=== PATIENT | female | born 1990 | race Caucasian/White ===

== ENCOUNTER 2019-07-11 22:08 | Emergency (ER) | payer OTHER ==
[2019-07-11 22:21] VITALS: BP 109/73
--- NOTE | 2019-07-11 23:09 | ED Physician Documentation ---
History of Present Illness - Stated complaint Stated Complaint: RIGHT HAND FINGER LAC - Chief complaint Chief Complaint: Laceration - Additonal information Additional information: This is a 29-year-old female with a laceration to her right hand index finger. Patient was washing a knife, and accidentally cut her finger. She had some bleeding from the area which was controlled with direct pressure. She denies any numbness or weakness in the finger. 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 HEENT: Tonsil/Adenoidectomy - Present Medications Home Medications: Ambulatory Orders Medication Instructions Recorded Confirmed Citalopram [CeleXA] 10 mg PO DAILY 07/11/19 07/11/19 - Allergies Allergies/Adverse Reactions: Allergies Allergy/AdvReac Type Severity Reaction Status Date / Time No Known Drug Allergies Allergy Verified 07/11/19 22:21 - Social History Does the pt smoke?: No Smoking Status: Never smoker Does the pt drink ETOH?: Yes Does the pt have substance abuse?: No - Immunizations Immunizations are current?: Yes PD ED PE NORMAL - Vitals Vital signs reviewed: Yes - General General: Alert and oriented X 3, No acute distress - Respiratory Respiratory: No respiratory distress - Derm Derm: Warm and dry - Extremities Extremities: Other (Right index finger has a slightly curved 1.5 cm laceration on the lateral aspect. This extends to the subcutaneous tissue, there is no bone or tendon visible. She has intact flexion of her DIP as well as her PIP. Her extension is also normal. Sensation is intact to light touch over the di stal finger, capillary refill is brisk. There is no significant tenderness, no other lacerations seen.) - Neuro Neuro: Alert and oriented X 3 - Psych Psych: Normal mood, Normal affect Results - Vitals Vitals: Vital Signs - 24 hr 07/11/19 22:19 Temperature 36.6 C Heart Rate 57 L Respiratory 18 Rate Blood Pressure 109/73 O2 Saturation 97 Oxygen O2 Source Room air Procedures - Laceration (location) Finger right Length in cm: 1.5 Wound type: Linear Neurovascular status: Sensory intact, Motor intact, Vascular intact Tendon involvement: Tendon intact Wound Preparation: Irrigated copiously NS Skin layer closure: Dermabond, Steri strips Other: Patient tolerated well, No complications, Tetanus UTD Complexity: Simple PD MEDICAL DECISION MAKING - ED course ED course: Patient presents with a laceration, she is neurovascularly intact with no signs of tendon injury. The laceration appears clean, and was copiously irrigated with normal saline. She is up-to-date with her tetanus. After careful exploration and cleaning, the wound was repaired with Steri-Strip and Dermabond as noted above, the functional and cosmetic result was excellent. Wound care and return precautions were discussed with the patient, and she was discharged home. Departure - Departure Disposition: 01 Home, Self Care Clinical Impression: Laceration Condition: Good Instructions: ED Laceration Ext Skin Glue Follow-Up: KRISTEL RENTERIA [Primary Care Provider] - As Needed Comments: You were seen today for cut on your finger. This has been repaired with skin glue and a Steri-Strip. It is okay to shower and wash your hands, but avoid soaking the hand or scrubbing at the wound. The glue and Steri-Strip should flake off on their own over the next 1 to 2 weeks. If you develop signs of infection such as redness streaking up your hand, your finger becoming very swollen, or fever, please return to the emergency department. Otherwise you may follow-up with your primary care provider as needed.
== END 2019-07-11 23:27 | disposition home or self-care (01) ==
LOC: ED 22:08
DX: S61.210A Laceration without foreign body of right index finger without damage to nail, initial encounter (principal); W26.0XXA Contact with knife, initial encounter; Y93.G1 Activity, food preparation and clean up; Y92.009 Unspecified place in unspecified non-institutional (private) residence as the place of occurrence of the external cause
CPT/HCPCS: 12001; 99281

== ENCOUNTER 2020-08-11 20:14 | Emergency (ER) | payer OTHER ==
[2020-08-11 20:31] LABS: BILIRUBIN,URINE NEGATIVE (NEGATIVE); GLUCOSE, URINE (UA) NEGATIVE (NEGATIVE); KETONES,URINE (UA) NEGATIVE (NEGATIVE); LEUKOCYTE ESTERASE, URINE NEGATIVE (NEGATIVE); NITRITE,URINE NEGATIVE (NEGATIVE); OCCULT BLOOD,URINE NEGATIVE (NEGATIVE); PROTEIN,URINE NEGATIVE (NEGATIVE); UROBILINOGEN,URINE 0.2 (NORMAL) E.U./dL (NORMAL)
[2020-08-11 20:37] LABS: BACTERIA,URINE Rare /HPF (None Seen); CLARITY,URINE HAZY (CLEAR); HCG UR QUAL NEGATIVE; RBC,URINE 0-5 /HPF (0-5); SQUAMOUS EPITHELIAL CELL,UR MANY Squamous (<= Few)
[2020-08-11 20:38] LABS: AMORPHOUS SEDIMENT,UR Few /LPF
[2020-08-11] MEDS ORDERED: HYDROmorphone 1 MG/ML CARPUJECT IVP STA ×2 (20:47→21:56)
[2020-08-11] MEDS ORDERED: KETOROLAC 30 MG/ML VIAL IVP STA (20:47)
[2020-08-11 20:48] LABS: BASOPHILS % (AUTO) 0.3 %; EOSINOPHILS # (AUTO) 0.1 10^3/uL (0.0-0.7); EOSINOPHILS % (AUTO) 0.8 %; HGB - HEMOGLOBIN 12.3 g/dL (12.0-16.0); LYMPHOCYTES # (AUTO) 3.5 10^3/uL (1.5-3.5); LYMPHOCYTES % (AUTO) 44.2 %; MEAN CORPUSCULAR HEMOGLOBIN 29.6 pg (27.0-31.0); MEAN CORPUSCULAR HGB CONC 33.2 g/dL (32.0-36.0); MEAN CORPUSCULAR VOLUME 88.9 fL (81.0-99.0); MEAN PLATELET VOLUME 9.2 fL (7.9-10.8); MONOCYTES # (AUTO) 0.4 10^3/uL (0.0-1.0); MONOCYTES % (AUTO) 4.6 %; NEUTROPHILS % (AUTO) 49.8 %; PLT - PLATELET COUNT 213 10^3/uL (130-450); RED BLOOD COUNT 4.16 10^6/uL (4.20-5.40); RED CELL DISTRIBUTION WIDTH 11.8 % (12.0-15.0)
[2020-08-11 21:03] LABS: ALBUMIN 4.8 g/dL (3.2-5.5); ALBUMIN/GLOBULIN RATIO 1.7 (1.0-2.2); BILIRUBIN,TOTAL 0.7 mg/dL (0.2-1.0); CALCIUM 9.8 mg/dL (8.5-10.3); CREATININE 0.8 mg/dL (0.4-1.0); TOTAL PROTEIN 7.6 g/dL (6.7-8.2)
[2020-08-11] MEDS ORDERED: ONDANSETRON 4 MG/2 ML VIAL IVP STA ×2 (21:57→23:15)
[2020-08-11] MEDS ORDERED: IOVERSOL 320 100 ML VIAL IVP ONE ×2 (22:20→22:45)
--- NOTE | 2020-08-11 22:26 | ED Physician Documentation ---
PD HPI FEMALE - Stated complaint Stated Complaint: FEMALE , NAUSEA, HEADACHE - Chief complaint Chief Complaint: Abd Pain - History obtained from History obtained from: Patient - History of Present Illness Timing - onset: Last night Timing - duration: Days (1) Timing - details: Abrupt onset, Still present Associated symptoms: Pelvic pain. No: Vaginal bleeding, Vaginal discharge, Genital sore/lesion Contributing factors: control. 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 She has a prior history of ovarian cysts. She has developed nausea but she has not vomited. Review of Systems Constitutional: denies: Fever Eyes: denies: Decreased vision Ears: denies: Ear pain Nose: denies: Rhinorrhea / runny nose, Congestion Throat: denies: Sore throat Cardiac: denies: Chest pain / pressure, Palpitations Respiratory: denies: Dyspnea, Cough GI: reports: Abdominal Pain, Nausea. 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 HEENT: Tonsil/Adenoidectomy - Present Medications Home Medications: Ambulatory Orders Medication Instructions Recorded Confirmed Citalopram [CeleXA] 10 mg PO DAILY 07/11/19 07/11/19 Ondansetron Odt [Zofran] 4 mg TL Q6H PRN #10 tablet 08/12/20 - Allergies Allergies/Adverse Reactions: Allergies Allergy/AdvReac Type Severity Reaction Status Date / Time No Known Drug Allergies Allergy Verified 08/11/20 20:20 - Social History Does the pt smoke?: No Smoking Status: Never smoker Does the pt drink ETOH?: Yes Does the pt have substance abuse?: No - Immunizations Immunizations are current?: Yes PD ED PE NORMAL - Vitals Vital signs reviewed: Yes (normal ) - General General: Alert and oriented X 3, No acute distress, Well developed/nourished - HEENT HEENT: Atraumatic, PERRL, EOMI - Neck Neck: Supple, no meningeal sign, No bony TTP - Cardiac Cardiac: RRR, No murmur - Respiratory Respiratory: No respiratory distress, Clear bilaterally - Abdomen Abdomen: Normal bowel sounds, Soft, Non distended, No organomegaly, Other (LLQ tenderness without garding is mild but reproduces the symptoms the patient is having. ) - Back Back: No CVA TTP, No spinal TTP - Derm Derm: Normal color, Warm and dry, No rash - Extremities Extremities: No deformity, No edema - Neuro Neuro: Alert and oriented X 3, radio program director 2-12 intact, No motor deficit, No sensory deficit, Normal speech Eye Opening: Spontaneous Motor: Obeys Commands Verbal: Oriented GCS Score: 15 - Psych Psych: Normal mood, Normal affect Results - Vitals Vitals: Vital Signs - 24 hr 08/11/20 08/11/20 08/11/20 20:17 20:20 22:20 Temperature 36.5 C 36.5 C 36.6 C Heart Rate 74 74 63 Respiratory 15 15 16 Rate Blood Pressure 113/65 113/65 106/74 O2 Saturation 100 100 99 08/12/20 08/12/20 00:00 00:52 Temperature 36.6 C 36.2 C L Heart Rate 61 62 Respiratory 16 16 Rate Blood Pressure 101/72 102/74 O2 Saturation 100 100 Oxygen O2 Source Room air - Labs Labs: Laboratory Tests 08/11/20 08/11/20 08/11/20 20:25 20:40 20:40 WBC 8.0 RBC 4.16 L Hgb 12.3 Hct 37.0 MCV 88.9 MCH 29.6 MCHC 33.2 RDW 11.8 L Plt Count 213 MPV 9.2 Neut # (Auto) 4.0 Lymph # (Auto) 3.5 [place] # (Auto) 0.4 Eos # (Auto) 0.1 Baso # (Auto) 0.0 Absolute Nucleated RBC 0.00 Nucleated RBC % 0.0 Sodium 140 Potassium 3.3 L Chloride 102 Carbon Dioxide 26 Anion Gap 12.0 BUN 16 Creatinine 0.8 Estimated GFR (MDRD) 85 L Glucose 99 Calcium 9.8 Total Bilirubin 0.7 AST 19 ALT 15 Alkaline Phosphatase 51 Total Protein 7.6 Albumin 4.8 Globulin 2.8 Albumin/Globulin Ratio 1.7 Lipase 53 H Urine Color YELLOW Urine Clarity HAZY Urine pH 7.0 Ur Specific [place] 1.020 Urine Protein NEGATIVE Urine Glucose (UA) NEGATIVE Urine Ketones NEGATIVE Urine Occult Blood NEGATIVE Urine Nitrite NEGATIVE Urine Bilirubin NEGATIVE Urine Urobilinogen 0.2 (NORMAL) Ur Leukocyte Esterase NEGATIVE Urine RBC 0-5 Urine WBC 0-3 Ur Squamous Epith Cells MANY Squamous H Amorphous Sediment Few Urine Bacteria Rare Ur Microscopic Review INDICATED Urine Culture Comments NOT INDICATED Urine HCG, Qual NEGATIVE PD MEDICAL DECISION MAKING - ED course Complexity details: reviewed results, re-evaluated patient, considered differential, d/w patient ED course: 30 y/o female with right lower quadrant pain has a negative pelvic ultrasound and the appearance of ileus on her CT scan that is mild. She has stool throughout the colon and a burden on the right side with fecalization. Things are moving slowly. I was not able to elicit a history of overeating despite this being one day after thanksgi. She is treated in the ED with milk of magnesia and she is instructed on bowel rest and she appears adequately hydrated on interrogation of the IVC (1.74). She is instructed to return of unrelenting pain, worsening pain or lack of resolution in 24-48 hours. She is given zofran for symptom treatment. Departure - Departure Disposition: 01 Home, Self Care Clinical Impression: Ileus, unspecified Instructions: Ileus Follow-Up: SAMUEL Sim [Provider Group] Prescriptions: Ondansetron Odt [Zofran] 4 mg TL Q6H PRN #10 tablet PRN Reason: Nausea / Vomiting Comments: Today it looks like there has been some slowing of the transit of your intestinal contents and the treatment for this is to not eat anything for the next day. If you have resolution of your symptoms there is no specific follow- up. If you have worsening of your symptoms and are unable to tolerate pain return to the emergency department. 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 These are both items that will likely have little or no consequence but should be followed up by your primary care doctor. The liver hemangioma will require an ultrasound and the vascular malformation in the chest may require a CT angiogram of the chest. These are non-emergent issues and should be followed up on when you are feeling well. Discharge Date/Time: 08/12/20 00:53
[2020-08-12] MEDS ORDERED: MAGNESIUM HYDROXIDE 2,400 MG/30 ML UDC PO STA (00:24)
[2020-08-12 00:53] VITALS: BP 102/74
--- NOTE | 2020-08-12 11:49 | CT Report ---
PROCEDURE: Abdomen/Pelvis W INDICATIONS: LLQ pain CONTRAST: IV CONTRAST: Optiray 320 ml: 100 PO CONTRAST: *NO PO CONTRAST TECHNIQUE: After the administration of nonionic iodinated contrast, 5 mm thick sections acquired from the diaphr agms to the symphysis. 5 mm thick coronal and sagittal reformats were acquired. For radiation dose reduction, the following was used: automated exposure control, adjustment of mA and/or kV according to patient size. COMPARISON: None. FINDINGS: Image quality: Excellent. ABDOMEN: Lung bases: 9 x 7 mm nodular density within the inferior aspect of the right middle lobe measuring 9 x 7 mm (series 4 image 15). This is associated with 2 vessels. Lung bases are otherwise clear. Inferi or mediastinum is unremarkable. Solid organs: 16 mm low attenuating lesion in the right lobe of the liver measuring greater than simp le fluid. Gallbladder unremarkable Biliary system is non dilated. Pancreas enhances normally. No a drenal nodules. Kidneys demonstrate normal size and enhancement, without hydronephrosis. Peritoneum and bowel: The stomach and proximal small bowel are unremarkable. The appendix is normal. Within the pelvis are a few prominent fluid-filled loops of bowel measuring up to 2.7 cm in diameter. There is no transition point. There is gradual transition to normal size bowel. There is no wall thi ckening or surrounding inflammation. No ascites or pneumoperitoneum. Nodes and vessels: No retroperitoneal or mesenteric adenopathy by size criteria. Aorta and inferior vena cava are normal in size. Miscellaneous: Rectus diastases with small fat-containing periumbilical hernia. PELVIS: Genitourinary: Bladder wall thickness is normal. Miscellaneous: No inguinal hernias or adenopathy. Bones: No suspicious bony lesions. No vertebral body compression fractures. IMPRESSION: A few prominent fluid-filled loops of bowel within the pelvis is nonspecific it may represent focal i leus. No findings to suggest complication or evidence of obstruction. 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 Recommend nonemergent interventional radiology referral. 16 mm low attenuating lesion in the right lobe of the liver. This is most commonly a hemangioma. Conf irmation could be made with dedicated liver imaging. MRI is most specific. Agree with preliminary interpretation. Reviewed by: Nhan Enrique DO on 08/12/2020 10:48 AM [facility] Approved by: Nhan Enrique DO on 08/12/2020 10:48 AM [facility] Station ID: [id number]
--- NOTE | 2020-08-12 11:56 | Ultrasound Report ---
PROCEDURE: Pelvic w/Transvag+Doppler Comp INDICATIONS: pelvic pain, L TECHNIQUE: Real-time scanning was performed of the pelvic organs, with image documentation. Additional endovagi nal scanning was necessary due to incomplete visualization of the adnexal and endometrial structures by transabdominal scanning. COMPARISON: None. FINDINGS: Transabdominal scanning: Limited scanning through the kidneys shows no hydronephrosis. No pathologi c free abdominal or pelvic fluid. Endovaginal scanning: Uterus: Uterus is normal in size at 7.7 x 3.1 x 4.4 cm. The endometrium measures 5 mm in combined t hickness. Small amount of fluid within the endometrial canal. Submucosal fibroid noted within the po sterior aspect of the uterine body measuring 0.8 x 0.9 x 0.7 cm. Calcification in the fundus measurin g 5 x 3 x 3 mm. Ovaries: The right ovary is normal in size measuring 2.2 x 1.3 x 1.4 cm. The left ovary is normal in size measuring 2.7 x 1.4 x 1.5 cm. Within the right ovary is a septated cyst versus 2 adjacent folli cles. The overall size measures 1.5 x 0.9 x 1.0 cm. No suspicious cystic or solid adnexal mass. Inter nal arterial and venous waveforms are noted within the ovaries. Trace amount of fluid within the cul-de-sac which is likely physiologic. The kidneys are normal in size and echogenicity. Cortical thickness is within normal limits. No hydro nephrosis. IMPRESSION: No evidence of ovarian torsion or other acute abnormality. Small amount of pelvic free fluid likely physiologic. Agree with preliminary report. Reviewed by: Nhan Enrique DO on 08/12/2020 10:55 AM [facility] Approved by: Nhan Enrique DO on 08/12/2020 10:55 AM [facility] Station ID: [id number]
== END 2020-08-12 00:53 | disposition home or self-care (01) ==
LOC: ED 20:14
DX: K56.7 Ileus, unspecified (principal); D18.03 Hemangioma of intra-abdominal structures; Q25.72 Congenital pulmonary arteriovenous malformation; D25.0 Submucous leiomyoma of uterus
CPT/HCPCS: 36415; 74177; 76830; 76856; 80053; 81001; 81025; 83690; 85025; 93975; 96374; 96375; 96376; 99283; 99284; A9270; J1170; Q9967; 81003; 87086

== ENCOUNTER 2020-08-15 16:01 | Emergency (ER) | payer OTHER ==
[2020-08-15] MEDS ORDERED: PROCHLORPERAZINE 10 MG/2 ML VIAL IVP STA (16:36)
--- NOTE | 2020-08-15 16:40 | ED Physician Documentation ---
History of Present Illness - Stated complaint Stated Complaint: LT ABD PX/N/V - Chief complaint Chief Complaint: Abd Pain - History obtained from History obtained from: Patient - Additonal information Additional information: 30-year-old female presents to the emergency department for reevaluation of left lower quadrant abdominal pain. She was seen in this emergency department 08/11/2020. At that time she had reported left lower quadrant abdominal pain that was most consistent with a history of ovarian cyst. Pelvic ultrasound was completed and no findings of ovarian cyst or torsion were found. However given the acuity of the pain the provider did proceed with the CT of the abdomen and pelvis. It did show fluid-filled loops in the bowel within the pelvis likely representing focal ileus. There were no findings of obstruction. She was advised to attempt bowel rest at home with a liquid diet. She states that when she went home she did do a liquid diet for 2 days before advancing to solids. When she started eating solids the pain in her left lower quadrant returned. She stated that she has had a small bowel movement yesterday that was normal for her. No melena or hematochezia. She denies fevers, vomiting, dysuria. She does endorse new onset nausea today. psh: X 2 meds: citalopram, nexplanon implant Review of Systems Constitutional: reports: Reviewed and negative Ears: reports: Reviewed and negative Nose: reports: Reviewed and negative Throat: reports: Reviewed and negative Cardiac: reports: Reviewed and negative Respiratory: reports: Reviewed and negative GI: reports: Abdominal Pain, Nausea, Reviewed and negative. 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 HEENT: Tonsil/Adenoidectomy - Present Medications Home Medications: Ambulatory Orders Medication Instructions Recorded Confirmed Citalopram [CeleXA] 10 mg PO DAILY 07/11/19 07/11/19 Ondansetron Odt [Zofran] 4 mg TL Q6H PRN #10 tablet 08/12/20 Dicyclomine [Bentyl] 10 mg PO QID PRN #20 capsule 08/15/20 Metoclopramide [Reglan] 10 mg PO Q6H PRN #10 tablet 08/15/20 polyethylene glycoL 3350 [Miralax] 17 gm PO DAILY PRN #1 bottle 08/15/20 - Allergies Allergies/Adverse Reactions: Allergies Allergy/AdvReac Type Severity Reaction Status Date / Time No Known Drug Allergies Allergy Verified 08/15/20 16:20 - Social History Does the pt smoke?: No Smoking Status: Never smoker Does the pt drink ETOH?: Yes Does the pt have substance abuse?: No - Immunizations Immunizations are current?: Yes PD ED PE EXPANDED - General General: Alert, No acute distress, Well developed/nourished - HEENT HEENT: Atraumatic, PERRL - Neck Neck: Supple w/out meningeal sx, No tenderness. No: Adenopathy - Cardiac Cardiac: Regular Rate, Regular Rhythm, Radial strong equal, Pedal strong equal, Cap refill < 2 sec. No: Murmur Present - Respiratory Respiratory: Clear to ausultation jenny. No: Distress, Labored - Abdomen Abdomen: Normal Bowel sounds, Tender to palpation (Very mild tenderness to palpation of the left lower quadrant of abdomen without guarding or rebound.) Results - Vitals Vitals: Vital Signs - 24 hr 08/15/20 16:15 Temperature 36.7 C Heart Rate 78 Respiratory 17 Rate Blood Pressure 127/76 O2 Saturation 99 Oxygen O2 Source Room air - Labs Labs: Laboratory Tests 08/15/20 08/15/20 08/15/20 16:40 17:01 17:01 WBC 6.0 RBC 4.15 L Hgb 12.5 Hct 36.8 L MCV 88.7 MCH 30.1 MCHC 34.0 RDW 11.5 L Plt Count 205 MPV 9.5 Neut # (Auto) 3.1 Lymph # (Auto) 2.5 [place] # (Auto) 0.3 Eos # (Auto) 0.0 Baso # (Auto) 0.0 Absolute Nucleated RBC 0.00 Nucleated RBC % 0.0 Sodium 139 Potassium 3.4 L Chloride 101 Carbon Dioxide 26 Anion Gap 12.0 BUN 8 Creatinine 0.8 Estimated GFR (MDRD) 85 L Glucose 90 Calcium 9.3 Total Bilirubin 0.9 AST 21 ALT 18 Alkaline Phosphatase 49 Total Protein 7.6 Albumin 4.8 Globulin 2.8 Albumin/Globulin Ratio 1.7 Lipase 41 Urine Color YELLOW Urine Clarity CLEAR Urine pH 6.5 Ur Specific [place] <=1.005 Urine Protein NEGATIVE Urine Glucose (UA) NEGATIVE Urine Ketones NEGATIVE Urine Occult Blood NEGATIVE Urine Nitrite NEGATIVE Urine Bilirubin NEGATIVE Urine Urobilinogen 0.2 (NORMAL) Ur Leukocyte Esterase NEGATIVE Ur Microscopic Review NOT INDICATED Urine Culture Comments NOT INDICATED Urine HCG, Qual NEGATIVE PD MEDICAL DECISION MAKING - ED course Complexity details: reviewed old records, reviewed results, re-evaluated patient, considered differential, d/w patient ED course: 30-year-old female presents to the emergency department for reevaluation of left lower quadrant abdominal pain. Seen here 4 days ago and at that time CT imaging was concerning for an ileus. She did have a large amount of stool throughout the colon. On reexam today she does have mild tenderness in the left side of the abdomen but no fevers or vomiting. Her exam is not consistent with a bowel obstruction. Her labs were reevaluated. No leukocytosis or electrolyte abnormality. I did discuss her recent ED visit as well as imaging with the patient. This time I feel that she may still continue to have a mild ileus and while her colon is full of stool allowing the constipation to be relieved might be helpful. Therefore we will discharge her with a promotility agent, Reglan as well as Bentyl and recommendation to take MiraLAX once or twice a day until she has 3 or 4 watery bowel movements. Worrisome and emergent return precautions discussed. Patient will schedule follow-up with [facility]. Departure - Departure Disposition: 01 Home, Self Care Clinical Impression: Left lower quadrant abdominal pain Condition: Stable Record reviewed to determine appropriate education?: Yes Follow-Up: KRISTEL RENTERIA [Primary Care Provider] - Prescriptions: Dicyclomine [Bentyl] 10 mg PO QID PRN #20 capsule PRN Reason: Abdominal Pain polyethylene glycoL 3350 [Miralax] 17 gm PO DAILY PRN #1 bottle PRN Reason: Constipation Metoclopramide [Reglan] 10 mg PO Q6H PRN #10 tablet PRN Reason: Nausea / Vomiting Comments: Gabriella your labs today are unremarkable. I think the cause of your abdominal pain is most likely the amount of stool within your colon. I have prescribed Reglan this is a medication that should help your intestines move faster. I have also prescribed Bentyl this is a medication that will help with spasm in the intestine. I would like you to take the MiraLAX once or twice a day until you have 3 or 4 watery bowel movements. Please discuss this ED visit with [facility]. You may benefit from referral to a speech therapy assistant. Please return to the emergency department if you have fevers greater than 102, black or bloody bowel movements, suddenly severe or different abdominal pain
[2020-08-15] MEDS ORDERED: SODIUM CHLORIDE 0.9% 1,000 ML IV STA (16:42)
[2020-08-15 16:47] LABS: BILIRUBIN,URINE NEGATIVE (NEGATIVE); GLUCOSE, URINE (UA) NEGATIVE (NEGATIVE); KETONES,URINE (UA) NEGATIVE (NEGATIVE); LEUKOCYTE ESTERASE, URINE NEGATIVE (NEGATIVE); NITRITE,URINE NEGATIVE (NEGATIVE); OCCULT BLOOD,URINE NEGATIVE (NEGATIVE); PH,URINE 6.5 PH (5.0-7.5); PROTEIN,URINE NEGATIVE (NEGATIVE); UROBILINOGEN,URINE 0.2 (NORMAL) E.U./dL (NORMAL)
[2020-08-15 16:49] LABS: CLARITY,URINE CLEAR (CLEAR); HCG UR QUAL NEGATIVE
[2020-08-15 17:12] LABS: BASOPHILS % (AUTO) 0.3 %; EOSINOPHILS % (AUTO) 0.5 %; HGB - HEMOGLOBIN 12.5 g/dL (12.0-16.0); LYMPHOCYTES # (AUTO) 2.5 10^3/uL (1.5-3.5); LYMPHOCYTES % (AUTO) 42.4 %; MEAN CORPUSCULAR HEMOGLOBIN 30.1 pg (27.0-31.0); MEAN CORPUSCULAR VOLUME 88.7 fL (81.0-99.0); MEAN PLATELET VOLUME 9.5 fL (7.9-10.8); MONOCYTES # (AUTO) 0.3 10^3/uL (0.0-1.0); MONOCYTES % (AUTO) 4.7 %; NEUTROPHILS # (AUTO) 3.1 10^3/uL (1.5-6.6); NEUTROPHILS % (AUTO) 51.8 %; PLT - PLATELET COUNT 205 10^3/uL (130-450); RED BLOOD COUNT 4.15 10^6/uL (4.20-5.40); RED CELL DISTRIBUTION WIDTH 11.5 % (12.0-15.0)
[2020-08-15 17:26] LABS: ALBUMIN 4.8 g/dL (3.2-5.5); ALBUMIN/GLOBULIN RATIO 1.7 (1.0-2.2); BILIRUBIN,TOTAL 0.9 mg/dL (0.2-1.0); CALCIUM 9.3 mg/dL (8.5-10.3); CREATININE 0.8 mg/dL (0.4-1.0); TOTAL PROTEIN 7.6 g/dL (6.7-8.2)
[2020-08-15 17:43] VITALS: BP 125/80
== END 2020-08-15 17:42 | disposition home or self-care (01) ==
LOC: ED 16:01
DX: R10.32 Left lower quadrant pain (principal); K59.00 Constipation, unspecified
CPT/HCPCS: 36415; 80053; 81001; 81003; 81025; 83690; 85025; 87086; 96361; 96374; 99284

== ENCOUNTER 2021-03-21 10:08 | Emergency (ER) | payer OTHER ==
[2021-03-21 10:23] VITALS: BP 115/68
--- NOTE | 2021-03-21 10:47 | ED Physician Documentation ---
PD HPI HEENT - Stated complaint Stated Complaint: EAR PX/ITCHING - Chief complaint Chief Complaint: Heent - History obtained from History obtained from: Patient - History of Present Illness Timing - onset: How many weeks ago (2) Timing - duration: Weeks (2) Timing - details: Gradual onset, Still present Location: Right ear, Left ear Improves: Medication Associated symptoms: Congestion. No: Fever Similar symptoms before: Has not had sx before Recently seen: Not recently seen - Additional information Additional information: 30-year-old female with a prior history of strep pharyngitis recurrent required tonsillectomy has developed some itching to her ears. She feels the itching is deep and she just wants to stick a Q-tip deep in her ear to scratch. She does not have any pain to the external portion of the ear or to the ear canal. She does not have cough associated with this. She does have a sensation that she is having some difficulty with nasal allergy and congestion. She has tried some [id number]-[id number] antihistamine with some success. She has a sensation that she has fullness to her ears with muffled hearing and she has not been able to pop her ears. Review of Systems Constitutional: denies: Fever Eyes: denies: Decreased vision Ears: reports: Loss of hearing. 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: Ovarian cysts Psych: Anxiety Musculoskeletal: Other - Past Surgical History Past Surgical History: Yes Ortho: Arthroscopic surgery /STEEPLECHASE JOCKEY: section HEENT: Tonsil/Adenoidectomy - Present Medications Home Medications: Ambulatory Orders Medication Instructions Recorded Confirmed Citalopram [CeleXA] 0 mg PO DAILY 07/11/19 03/21/21 Etonogestrel [Nexplanon] 1 applic SQ DAILY 03/21/21 03/21/21 - Allergies Allergies/Adverse Reactions: Allergies Allergy/AdvReac Type Severity Reaction Status Date / Time No Known Drug Allergies Allergy Verified 03/21/21 10:23 - Social History Does the pt smoke?: No Smoking Status: Never smoker Does the pt drink ETOH?: Yes Does the pt have substance abuse?: No - Immunizations Immunizations are current?: Yes PD ED PE NORMAL - Vitals Vital signs reviewed: Yes (Normal) - General General: Alert and oriented X 3, No acute distress, Well developed/nourished - HEENT HEENT: Atraumatic, PERRL, EOMI, Ears normal, Moist mucous membranes, Pharynx benign, Dentition benign - Neck Neck: Supple, no meningeal sign, No bony TTP - Cardiac Cardiac: RRR, No murmur - Respiratory Respiratory: No respiratory distress, Clear bilaterally - Derm Derm: Normal color, Warm and dry, No rash - Extremities Extremities: No deformity, No edema - Neuro Neuro: Alert and oriented X 3, 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 There is no evidence of otitis pharyngitis or sinusitis. I suspect the patient may have an element of eustachian tube dysfunction and I have shared this with the patient and instructed her on the use of Nasacort for treatment of this. Departure - Departure Disposition: 01 Home, Self Care Clinical Impression: Eustachian tube dysfunction Qualifiers: Laterality: bilateral Qualified Code(s): H69.83 - Other specified disorders of Eustachian tube, bilateral Condition: Stable Instructions: ED Obstruction Eustachian Tube Ch Follow-Up: [facility] [Provider Group] Comments: Today on physical examination there is no evidence of middle ear infection. Your symptoms are consistent with eustachian tube dysfunction and the recommendation for treatment of this is to use some Nasacort (available over the counter) on a regular basis. The expectation is that within several days of starting this you will have an improvement in your sensation of fullness to the ears with being able to pop your ears and have them drain.
== END 2021-03-21 10:56 | disposition home or self-care (01) ==
LOC: ED 10:08
DX: H69.83 Other specified disorders of Eustachian tube, bilateral (principal)
CPT/HCPCS: 99281; 99284

== ENCOUNTER 2021-09-04 16:31 | Emergency (ER) | payer OTHER ==
--- NOTE | 2021-09-04 17:08 | ED Physician Documentation ---
History of Present Illness - Stated complaint Stated Complaint: COUGH/SORE THROAT - History obtained from History obtained from: Patient (This is a healthy 31-year-old woman who has not been vaccinated who became symptomatic with a sore throat today. Her coworker is positive for Covid. She denies shortness of breath.) Review of Systems Constitutional: reports: Chills, Fatigue. 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: Ovarian cysts Psych: Anxiety Musculoskeletal: Other - Past Surgical History Past Surgical History: Yes Ortho: Arthroscopic surgery /CLAIMS ATTORNEY: section HEENT: Tonsil/Adenoidectomy - Present Medications Home Medications: Ambulatory Orders Medication Instructions Recorded Confirmed Citalopram [CeleXA] 0 mg PO DAILY 07/11/19 03/21/21 Etonogestrel [Nexplanon] 1 applic SQ DAILY 03/21/21 03/21/21 - Allergies Allergies/Adverse Reactions: Allergies Allergy/AdvReac Type Severity Reaction Status Date / Time No Known Drug Allergies Allergy Verified 03/21/21 10:23 - Social History Does the pt smoke?: No Smoking Status: Never smoker Does the pt drink ETOH?: Yes Does the pt have substance abuse?: No - Immunizations Immunizations are current?: Yes PD ED PE NORMAL - Vitals Vital signs reviewed: Yes - General General: Alert and oriented X 3, No acute distress - HEENT HEENT: Pharynx benign - Respiratory Respiratory: No respiratory distress, Clear bilaterally - Abdomen Abdomen: Non tender - Psych Psych: Normal mood, Normal affect Results - Vitals Vitals: Oxygen O2 Source Room air Departure - Departure Disposition: 01 Home, Self Care Clinical Impression: Viral URI Condition: Good Record reviewed to determine appropriate education?: Yes Instructions: ED Viral Syndrome Comments: You have a Covid test pending. You need to self quarantine until the result is done and negative. Do not leave your house. Do not get near anybody. The results should be done in 48 to 72 hours. We will call with a positive result, the fastest way to get a negative result for confirmation though is to go to the hospital website at [email or web address], click on the my [facility] tab and sign up for the patient portal. If any friends or family get sick and would like to have a Covid test done, but do not have signs or symptoms that would necessitate being hospitalized, there are multiple local options for Covid testing. [facility] keeps an updated list of testing and vaccination options at: [email or web address]. Forms: Activity restrictions
[2021-09-04 17:18] VITALS: BP 130/80
== END 2021-09-04 17:28 | disposition home or self-care (01) ==
LOC: ED 16:31
DX: J06.9 Acute upper respiratory infection, unspecified (principal); Z20.822 Contact with and (suspected) exposure to COVID-19
CPT/HCPCS: 99282; 99283

== ENCOUNTER 2022-08-31 20:20 | Emergency (ER) | payer OTHER ==
[2022-08-31 20:45] LABS: LEUKOCYTE ESTERASE, URINE NEGATIVE (NEGATIVE)
[2022-08-31 20:47] LABS: CLARITY,URINE CLEAR (CLEAR)
[2022-08-31 20:48] LABS: BILIRUBIN,URINE COLOR INTERFERENCE (NEGATIVE)
[2022-08-31 20:52] LABS: HCG UR QUAL NEGATIVE
[2022-08-31 20:57] LABS: OCCULT BLOOD,URINE RARE (NEGATIVE)
[2022-08-31 21:37] LABS: BASOPHILS % (AUTO) 0.4 %; EOSINOPHILS # (AUTO) 0.1 10^3/uL (0.0-0.7); EOSINOPHILS % (AUTO) 0.6 %; HCT - HEMATOCRIT 36.7 % (37.0-47.0); HGB - HEMOGLOBIN 11.7 g/dL (12.0-16.0); LYMPHOCYTES # (AUTO) 3.2 10^3/uL (1.5-3.5); LYMPHOCYTES % (AUTO) 33.2 %; MEAN CORPUSCULAR HEMOGLOBIN 29.1 pg (27.0-31.0); MEAN CORPUSCULAR HGB CONC 31.9 g/dL (32.0-36.0); MEAN CORPUSCULAR VOLUME 91.3 fL (81.0-99.0); MONOCYTES # (AUTO) 0.5 10^3/uL (0.0-1.0); MONOCYTES % (AUTO) 4.9 %; NEUTROPHILS # (AUTO) 5.8 10^3/uL (1.5-6.6); NEUTROPHILS % (AUTO) 60.6 %; PLT - PLATELET COUNT 252 10^3/uL (130-450); RED BLOOD COUNT 4.02 10^6/uL (4.20-5.40); RED CELL DISTRIBUTION WIDTH 12.3 % (12.0-15.0); WHITE BLOOD COUNT 9.6 x10^3/uL (4.8-10.8)
[2022-08-31 21:55] LABS: ALBUMIN 4.9 g/dL (3.2-5.5); ALBUMIN/GLOBULIN RATIO 1.9 (1.0-2.2); BILIRUBIN,TOTAL 0.8 mg/dL (0.2-1.0); CALCIUM 9.3 mg/dL (8.5-10.3); CREATININE 0.9 mg/dL (0.4-1.0); POTASSIUM 3.8 mmol/L (3.5-5.0); TOTAL PROTEIN 7.5 g/dL (6.7-8.2)
[2022-08-31] MEDS ORDERED: HYDROcod/ACETAM 5/325 MG TABLET PO STA (22:07)
[2022-08-31] MEDS ORDERED: SULFAMETH/TRIMETH DS 800/160 MG TABLET PO STA (22:07)
--- NOTE | 2022-08-31 22:11 | ED Physician Documentation ---
History of Present Illness - Stated complaint Stated Complaint: FEMALE - Chief complaint Chief Complaint: Abd Pain - Additonal information Additional information: Patient 32-year-old female presenting to the emergency room with dysuria and flank pain. Symptoms ongoing x1 week. Is seen at [facility] and treated with course ciprofloxacin. Reports she was having some symptoms prior to being seen at [facility] and she had taken Azo prior to arrival. They reported that she had a normal urine analysis and she is uncertain whether or not they performed a urine culture but they started her on a 5-day course of ciprofloxacin for her symptoms. She reports that her symptoms have continued. They are associated with nausea. She denies fever. Denies any vaginal discharge or concern for sexually transmitted infection. 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 HEENT: Tonsil/Adenoidectomy - Present Medications Home Medications: Ambulatory Orders Medication Instructions Recorded Confirmed Citalopram [CeleXA] 10 mg PO DAILY 07/11/19 05/28/22 Cyclobenzaprine [Flexeril] 10 mg PO TID PRN #20 tablet 05/28/22 HYDROcod/ACETAM 5/325 [Canton 5/325] 1 - 2 tablet PO Q6H PRN #14 tablet 05/28/22 Ciprofloxacin HCl 500 mg PO BID 08/31/22 08/31/22 HYDROcod/ACETAM 5/325 [Canton 5/325] 1 - 2 ea PO Q6H PRN #14 tablet 08/31/22 Ondansetron Odt [Zofran] 4 mg TL Q6H PRN #10 tablet 08/31/22 Sulfamethox/Trimeth 800/160 1 each PO BID #14 tablet 08/31/22 [Bactrim Ds 800/160] - Allergies Allergies/Adverse Reactions: Allergies Allergy/AdvReac Type Severity Reaction Status Date / Time No Known Drug Allergies Allergy Verified 08/31/22 20:25 - Social History Does the pt smoke?: No Smoking Status: Never smoker Does the pt drink ETOH?: Yes Does the pt have substance abuse?: No - Immunizations Immunizations are current?: Yes PD ED PE NORMAL - Vitals Vital signs reviewed: Yes (Within normal limits) - General General: Alert and oriented X 3, No acute distress, Well developed/nourished - HEENT HEENT: Atraumatic, PERRL, EOMI - Neck Neck: Supple, no meningeal sign - Cardiac Cardiac: RRR - Respiratory Respiratory: No respiratory distress - Abdomen Abdomen: Normal bowel sounds, Non tender - Back Back: No CVA TTP, No spinal TTP - Derm Derm: Normal color - Extremities Extremities: No deformity Results - Vitals Vitals: Vital Signs - 24 hr 08/31/22 08/31/22 20:25 20:27 Temperature 36.5 C 36.5 C Heart Rate 64 64 Respiratory 16 16 Rate Blood Pressure 114/82 H 114/82 H O2 Saturation 100 100 Oxygen O2 Source Room air - Labs Labs: Laboratory Tests 08/31/22 08/31/22 08/31/22 20:35 21:28 21:28 WBC 9.6 RBC 4.02 L Hgb 11.7 L Hct 36.7 L MCV 91.3 MCH 29.1 MCHC 31.9 L RDW 12.3 Plt Count 252 MPV 9.0 Neut # (Auto) 5.8 Lymph # (Auto) 3.2 Floyd # (Auto) 0.5 Eos # (Auto) 0.1 Baso # (Auto) 0.0 Absolute Nucleated RBC 0.00 Nucleated RBC % 0.0 Sodium 139 Potassium 3.8 Chloride 101 Carbon Dioxide 28 Anion Gap 10.0 BUN 22 H Creatinine 0.9 Estimated GFR (MDRD) 74 L Glucose 97 Calcium 9.3 Total Bilirubin 0.8 AST 17 ALT 16 Alkaline Phosphatase 45 Total Protein 7.5 Albumin 4.9 Globulin 2.6 Albumin/Globulin Ratio 1.9 Lipase 49 Urine Color ORANGE Urine Clarity CLEAR Urine pH Ur Specific Cascade Urine Protein Urine Glucose (UA) Urine Ketones Urine Occult Blood RARE Urine Nitrite Urine Bilirubin COLOR INTERFERENCE Urine Urobilinogen Ur Leukocyte Esterase NEGATIVE Ur Microscopic Review NOT INDICATED Urine Culture Comments NOT INDICATED Urine HCG, Qual NEGATIVE PD Medical Decision Making - ED course Complexity details: reviewed results, d/w patient, d/w family ED course: Patient presents to the emergency department with dysuria and flank pain. Afebrile, hemodynamically stable. No CVA tenderness. Patient's reported flank pain is a nonspecific tenderness in her bilateral lower back. No spinal tendern ess. No fever that would be indicative of pyelonephritis. Labs obtained did not demonstrate a leukocytosis, significant electrolyte abnormality or renal dysfunction. Urine analysis was indeterminate as patient has taken Azo which has interfered with the ability for the UA here. Given her persistent symptoms I will order for urine culture. She just completed a course of ciprofloxacin. I will transition her to a course of Bactrim. I will encourage her to increase her intake and fiber full foods and natural probiotics. I will provide additional medications for symptomatic management. I have encouraged her to follow-up with her primary care doctor at the [facility]. Clear return precautions given prior to discharge. Final clinical impression, dysuria. Departure - Departure Disposition: Home, Self Care Clinical Impression: Dysuria Instructions: ED Dysuria Uncertain Cause Prescriptions: Sulfamethox/Trimeth 800/160 [Bactrim Ds 800/160] 1 each PO BID #14 tablet HYDROcod/ACETAM 5/325 [Canton 5/325] 1 - 2 ea PO Q6H PRN #14 tablet PRN Reason: Pain Ondansetron Odt [Zofran] 4 mg TL Q6H PRN #10 tablet PRN Reason: Nausea / Vomiting Comments: Thank you for allowing us to care for you today [facility]. Today in the emergency department your evaluated for any possible life- threatening medical emergency. The lab work performed in the emergency department today was all very reassuring. Your urine analysis was indeterminant, which is not uncommon in settings of recent use of Pyridium. I will send your urine for culture and further studies. In the interim I would like you to begin a course of oral antibiotic. Please increase your intake and fiber foods and natural probiotics while on antibiotics. I also be discharging this medication for pain control and nausea. Please use these as directed. Please do make a follow-up appoint with your primary care doctor in the next few days for medical recheck. If it anytime you develop new or worsening symptoms please not hesitate to return to the emergency department.
[2022-08-31 22:21] VITALS: BP 116/82
== END 2022-08-31 22:19 | disposition home or self-care (01) ==
LOC: ED 20:20
DX: R30.0 Dysuria (principal)
CPT/HCPCS: 36415; 80053; 81003; 81025; 83690; 85025; 87086; 99282; 99283; A9270; 81001

== ENCOUNTER 2023-01-04 17:33 | Emergency (ER) | payer OTHER ==
[2023-01-04 17:41] VITALS: BP 122/63
--- OUTSIDE RECORDS SUMMARY | 2023-01-04 18:07 | EXTERNAL MEDICAL SUMMARY RPT | Continuity of Care Document ---
:1990 Author Organization [facility] Address [address] [place] [address] Phone Care Team Providers Name Role Phone Rose Mary Mcdowell Unavailable Unavailable Allergies No information. Encounters No information. Functional Status No information. Immunizations No information. Medications No information. Problems date description facility 2022-12-25 00:00 Encounter for supervision of other [facility] in first trimester Procedures No information. Results/Labs test date author facility value unit interpret ation Result panel 1 (unknown) (no (unknown) (unknown) (no value) (units (unk nown) date) unknown) (unknown) (no (unknown) (unknown) [id number] (units (unkno wn) date) unknown) (unknown) (no (unknown) (unknown) 12/29/22 (units (unkno wn) date) unknown) (unknown) (no (unknown) (unknown) 12/29/22] (units (unkn own) date) unknown) (unknown) (no (unknown) (unknown) 09:32) (units (unkno wn) date) unknown) (unknown) (no (unknown) (unknown) Add'l Plan (units (unk nown) date) Details unknown) (unknown) (no (unknown) (unknown) Age/Sex: 32 / F (units (unknown) date) Date of Service: unknown) (unknown) (no (unknown) (unknown) Allergies (units (unkn own) date) unknown) (unknown) (no (unknown) (unknown) [place], [place] (units ( unknown) date) [id number] unknown) (unknown) (no (unknown) (unknown) Assessment and (units (unknown) date) Plan unknown) (unknown) (no (unknown) (unknown) Attending Dr: (units ( unknown) date) Rose Mary Mcdowell unknown) (unknown) (no (unknown) (unknown) BMI Refused (units (un known) date) unknown) (unknown) (no (unknown) (unknown) BMI Screening: (units (unknown) date) Yes BMI within unknown) normal limits (unknown) (no (unknown) (unknown) (units (unkno wn) date) Plan/Preferences unknown) (unknown) (no (unknown) (unknown) Planning (units (unknown) date) unknown) (unknown) (no (unknown) (unknown) Bleach (Sodium (units (unknown) date) Hypochlorite) unknown) Adverse Reaction (Severe, Verified 12/29/22 09:32) (unknown) (no (unknown) (unknown) Current Estimate (units (unknown) date) 08/02/23 LMP unknown) (Uncertain) 9w 1d (unknown) (no (unknown) (unknown) : 1990 (units (unknown) date) Acct:[id number] unknown) (unknown) (no (unknown) (unknown) Dept at (units (unkno wn) date) . unknown) (unknown) (no (unknown) (unknown) Difficulty (units (unk nown) date) Breathing unknown) (unknown) (no (unknown) (unknown) Documented By: (units (unknown) date) Rose Mary Mcdowell unknownChristoph DICKERSON 12/29/22 0936 (unknown) (no (unknown) (unknown) Draft (units (unkno wn) date) unknown) (unknown) (no (unknown) (unknown) MARY BETH Calculator (units (unknown) date) unknown) (unknown) (no (unknown) (unknown) Estimated (units (unkn own) date) Delivery Date unknown) Method Current (unknown) (no (unknown) (unknown) Family History (units (unknown) date) (Updated 12/29/22 unknown) @ 09:36 by Janey Garcia RN) (unknown) (no (unknown) (unknown) [facility] ([facility] unknown) (unknown) (no (unknown) (unknown) Grandmother Lung (units (unknown) date) cancer unknown) (unknown) (no (unknown) (unknown) H/O knee surgery (units (unknown) date) unknown) (unknown) (no (unknown) (unknown) History of (units (unk nown) date) section unknown) (unknown) (no (unknown) (unknown) Hives (units (unkno wn) date) unknown) (unknown) (no (unknown) (unknown) Intake Clinical (units (unknown) date) Staff unknown) (unknown) (no (unknown) (unknown) Intake performed (units (unknown) date) by: unknown) Denzel Garcia (unknown) (no (unknown) (unknown) Intake (units (unkno wn) date) unknown) (unknown) (no (unknown) (unknown) Loc: [facility] (units (unkno wn) date) unknown) (unknown) (no (unknown) (unknown) Medical History (units (unknown) date) (Updated 12/25/22 unknown) @ 15:38 by Janey Garcia RN) (unknown) (no (unknown) (unknown) Medications (units (un known) date) unknown) (unknown) (no (unknown) (unknown) No significant (units (unknown) date) past medical unknown) history (unknown) (no (unknown) (unknown) OB Office Visit (units (unknown) date) unknown) (unknown) (no (unknown) (unknown) PFSH (units (unkno wn) date) unknown) (unknown) (no (unknown) (unknown) Patient: (units (unkno wn) date) Belem Judgeantonella Lala unknown) MR#: [id number] (unknown) (no (unknown) (unknown) Electrical Drafter: (units ( unknown) date) DOD unknown) (unknown) (no (unknown) (unknown) type:: (units (unknown) date) Other Normal unknown) (unknown) (no (unknown) (unknown) Visit (units (unknown) date) unknown) (unknown) (no (unknown) (unknown) Primary [facility] (units (u nknown) date) [facility] (unknown) (no (unknown) (unknown) Primary Ob (units (unk nown) date) Provider: unknown) Rose Mary Mcdowell (unknown) (no (unknown) (unknown) Providers (units (unkn own) date) unknown) (unknown) (no (unknown) (unknown) Rash (units (unkno wn) date) unknown) (unknown) (no (unknown) (unknown) Reason For Visit (units (unknown) date) unknown) (unknown) (no (unknown) (unknown) S/P (units (unkno wn) date) tonsillectomy unknown) (unknown) (no (unknown) (unknown) Signed By: (units (unk nown) date) unknown) (unknown) (no (unknown) (unknown) Smoking Status: (units (unknown) date) Former smoker unknown) (quit in her early 20s) (unknown) (no (unknown) (unknown) Social History (units (unknown) date) unknown) (unknown) (no (unknown) (unknown) Surgical History (units (unknown) date) (Updated 12/29/22 unknown) @ 09:35 by Janey Garcia RN) (unknown) (no (unknown) (unknown) This note may (units ( unknown) date) have been all or unknown) partially generated using voice recognition (unknown) (no (unknown) (unknown) Tobacco + (units (unkn own) date) Substance Use unknown) (unknown) (no (unknown) (unknown) Tobacco Status (units (unknown) date) unknown) (unknown) (no (unknown) (unknown) Visit Reasons: (units (unknown) date) Telephone intake unknown) for Garde (unknown) (no (unknown) (unknown) WG (units (unkno wn) date) unknown) (unknown) (no (unknown) (unknown) caregiver/suppor (units (unknown) date) t person: Yes unknown) (unknown) (no (unknown) (unknown) have occurred. (units (unknown) date) If there are any unknown) questions, please contact the Medical Records (unknown) (no (unknown) (unknown) household (units (unkn own) date) members: unknown) significant other and children (unknown) (no (unknown) (unknown) housing: house (units (unknown) date) unknown) (unknown) (no (unknown) (unknown) lavender (units (unkno wn) date) (Lavandula unknown) angustifolia) Allergy (Intermediate, Verified 12/29/22 (unknown) (no (unknown) (unknown) lives (units (unkno wn) date) independently: unknown) Yes (unknown) (no (unknown) (unknown) may occur. (units (unk nown) date) Occasional unknown) wrong-word or 'sound-alike' substitutions may have (unknown) (no (unknown) (unknown) nickel Allergy (units (unknown) date) (Intermediate, unknown) Verified 12/29/22 09:32) (unknown) (no (unknown) (unknown) occurred due to (units (unknown) date) the inherent unknown) limitations of voice recognition software. Please (unknown) (no (unknown) (unknown) prenat.vits,tammy, (units (unknown) date) [id number] 1 unknown) tab PO DAILY 06/11/18 [History Confirmed (unknown) (no (unknown) (unknown) read the note (units ( unknown) date) carefully and unknown) recognize, using context, where these substitutions (unknown) (no (unknown) (unknown) software. (units (unkn own) date) Although every unknown) effort is made to edit content, status controller errors Result panel 2 (unknown) (no (unknown) (unknown) (no value) (units (unk nown) date) unknown) (unknown) (no (unknown) (unknown) [id number] (units (unkno wn) date) unknown) (unknown) (no (unknown) (unknown) 12/29/22 (units (unkno wn) date) unknown) (unknown) (no (unknown) (unknown) 12/29/22] (units (unkn own) date) unknown) (unknown) (no (unknown) (unknown) 09:32) (units (unkno wn) date) unknown) (unknown) (no (unknown) (unknown) Add'l Plan (units (unk nown) date) Details unknown) (unknown) (no (unknown) (unknown) Age/Sex: 32 / F (units (unknown) date) Date of Service: unknown) (unknown) (no (unknown) (unknown) Allergies (units (unkn own) date) unknown) (unknown) (no (unknown) (unknown) LATASHA Chen (units ( unknown) date) [id number] unknown) (unknown) (no (unknown) (unknown) Assessment and (units (unknown) date) Plan unknown) (unknown) (no (unknown) (unknown) Attending Dr: (units ( unknown) date) Rose Mary Mcdowell unknown) (unknown) (no (unknown) (unknown) BMI Refused (units (un known) date) unknown) (unknown) (no (unknown) (unknown) BMI Screening: (units (unknown) date) Yes BMI within unknown) normal limits (unknown) (no (unknown) (unknown) (units (unkno wn) date) Plan/Preferences unknown) (unknown) (no (unknown) (unknown) Planning (units (unknown) date) unknown) (unknown) (no (unknown) (unknown) Bleach (Sodium (units (unknown) date) Hypochlorite) unknown) Adverse Reaction (Severe, Verified 12/29/22 09:32) (unknown) (no (unknown) (unknown) Current Estimate (units (unknown) date) 08/02/23 LMP unknown) (Uncertain) 9w 1d (unknown) (no (unknown) (unknown) : 1990 (units (unknown) date) Acct:[id number] unknown) (unknown) (no (unknown) (unknown) Dept at (units (unkno wn) date) . unknown) (unknown) (no (unknown) (unknown) Diet and (units (unkno wn) date) Exercise unknown) (unknown) (no (unknown) (unknown) Difficulty (units (unk nown) date) Breathing unknown) (unknown) (no (unknown) (unknown) Documented By: (units (unknown) date) Rose Mary Mcdowell unknownChristoph DICKERSON 12/29/22 0936 (unknown) (no (unknown) (unknown) Draft (units (unkno wn) date) unknown) (unknown) (no (unknown) (unknown) MARY BETH Calculator (units (unknown) date) unknown) (unknown) (no (unknown) (unknown) Estimated (units (unkn own) date) Delivery Date unknown) Method Current (unknown) (no (unknown) (unknown) Family History (units (unknown) date) (Updated 12/29/22 unknown) @ 09:36 by Janey Garcia RN) (unknown) (no (unknown) (unknown) [facility] ([facility] unknown) (unknown) (no (unknown) (unknown) Grandmother Lung (units (unknown) date) cancer unknown) (unknown) (no (unknown) (unknown) H/O knee surgery (units (unknown) date) unknown) (unknown) (no (unknown) (unknown) History of (units (unk nown) date) section unknown) (unknown) (no (unknown) (unknown) Hives (units (unkno wn) date) unknown) (unknown) (no (unknown) (unknown) Intake Clinical (units (unknown) date) Staff unknown) (unknown) (no (unknown) (unknown) Intake performed (units (unknown) date) by: unknown) Denzel Garcia (unknown) (no (unknown) (unknown) Intake (units (unkno wn) date) unknown) (unknown) (no (unknown) (unknown) Loc: [facility] (units (unkno wn) date) unknown) (unknown) (no (unknown) (unknown) Medical History (units (unknown) date) (Updated 12/25/22 unknown) @ 15:38 by Janey Garcia RN) (unknown) (no (unknown) (unknown) Medications (units (un known) date) unknown) (unknown) (no (unknown) (unknown) No significant (units (unknown) date) past medical unknown) history (unknown) (no (unknown) (unknown) OB Office Visit (units (unknown) date) unknown) (unknown) (no (unknown) (unknown) PFSH (units (unkno wn) date) unknown) (unknown) (no (unknown) (unknown) Patient: (units (unkno wn) date) Ana Judge Dai unknown) MR#: [id number] (unknown) (no (unknown) (unknown) Electrical Drafter: (units ( unknown) date) DOD unknown) (unknown) (no (unknown) (unknown) type:: (units (unknown) date) Other Normal unknown) (unknown) (no (unknown) (unknown) Visit (units (unknown) date) unknown) (unknown) (no (unknown) (unknown) Primary Care (units (u nknown) date) [facility] (unknown) (no (unknown) (unknown) Primary Ob (units (unk nown) date) Provider: unknown) Rose Mary Mcdowell (unknown) (no (unknown) (unknown) Providers (units (unkn own) date) unknown) (unknown) (no (unknown) (unknown) Rash (units (unkno wn) date) unknown) (unknown) (no (unknown) (unknown) Reason For Visit (units (unknown) date) unknown) (unknown) (no (unknown) (unknown) S/P (units (unkno wn) date) tonsillectomy unknown) (unknown) (no (unknown) (unknown) Safety (units (unkno wn) date) unknown) (unknown) (no (unknown) (unknown) Signed By: (units (unk nown) date) unknown) (unknown) (no (unknown) (unknown) Smoking Status: (units (unknown) date) Former smoker unknown) (quit in her early 20s) (unknown) (no (unknown) (unknown) Social History (units (unknown) date) unknown) (unknown) (no (unknown) (unknown) Surgical History (units (unknown) date) (Updated 12/29/22 unknown) @ 09:35 by Janey Garcia RN) (unknown) (no (unknown) (unknown) This note may (units ( unknown) date) have been all or unknown) partially generated using voice recognition (unknown) (no (unknown) (unknown) Tobacco + (units (unkn own) date) Substance Use unknown) (unknown) (no (unknown) (unknown) Tobacco Status (units (unknown) date) unknown) (unknown) (no (unknown) (unknown) Visit Reasons: (units (unknown) date) Telephone intake unknown) for Garde (unknown) (no (unknown) (unknown) WG (units (unkno wn) date) unknown) (unknown) (no (unknown) (unknown) alcohol intake: (units (unknown) date) former (rarely unknown) when not ) (unknown) (no (unknown) (unknown) anesthesia duty (units (unknown) date) while ) unknown) (unknown) (no (unknown) (unknown) carbon monox (units (u nknown) date) detector in home: unknown) Yes (unknown) (no (unknown) (unknown) caregiver/suppor (units (unknown) date) t person: Yes unknown) (unknown) (no (unknown) (unknown) current (units (unkno wn) date) occupational unknown) exposures/hazards : Yes (several, but off Xray and (unknown) (no (unknown) (unknown) do you feel safe (units (unknown) date) at home: Yes unknown) (unknown) (no (unknown) (unknown) during the past (units (unknown) date) year weight has: unknown) decreased > 10 lbs (unknown) (no (unknown) (unknown) education level: (units (unknown) date) college (some unknown) college, working on associate's degree) (unknown) (no (unknown) (unknown) fire (units (unkno wn) date) extinguisher in unknown) home: Yes (unknown) (no (unknown) (unknown) firearms in (units (un known) date) home: No unknown) (unknown) (no (unknown) (unknown) have occurred. (units (unknown) date) If there are any unknown) questions, please contact the Medical Records (unknown) (no (unknown) (unknown) helmet use: No (units (unknown) date) (Counseled to do unknown) so) (unknown) (no (unknown) (unknown) household (units (unkn own) date) members: unknown) significant other and children (unknown) (no (unknown) (unknown) housing: house (units (unknown) date) unknown) (unknown) (no (unknown) (unknown) lavender (units (unkno wn) date) (Lavandula unknown) angustifolia) Allergy (Intermediate, Verified 12/29/22 (unknown) (no (unknown) (unknown) lives (units (unkno wn) date) independently: unknown) Yes (unknown) (no (unknown) (unknown) may occur. 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 (units (unkn own) date) Although every unknown) effort is made to edit content, status controller errors (unknown) (no (unknown) (unknown) special teagan (units ( unknown) date) needs: No unknown) (unknown) (no (unknown) (unknown) substance use (units ( unknown) date) type: does not unknown) use (unknown) (no (unknown) (unknown) travel history: (units (unknown) date) recent (domestic unknown) only) (unknown) (no (unknown) (unknown) water heater (units (u nknown) date) temp set < 120 unknown) deg: Yes (unknown) (no (unknown) (unknown) working smoke (units ( unknown) date) detector in home: unknown) Yes Result panel 3 (unknown) (no (unknown) (unknown) (no value) (units (unk nown) date) unknown) (unknown) (no (unknown) (unknown) [id number] (units (unkno wn) date) unknown) (unknown) (no (unknown) (unknown) 12/29/22 (units (unkno wn) date) unknown) (unknown) (no (unknown) (unknown) 12/29/22] (units (unkn own) date) unknown) (unknown) (no (unknown) (unknown) 09:32) (units (unkno wn) date) unknown) (unknown) (no (unknown) (unknown) Add'l Plan (units (unk nown) date) Details unknown) (unknown) (no (unknown) (unknown) Age/Sex: 32 / F (units (unknown) date) Date of Service: unknown) (unknown) (no (unknown) (unknown) Allergies (units (unkn own) date) unknown) (unknown) (no (unknown) (unknown) LATASHA Chen (units ( unknown) date) [id number] unknown) (unknown) (no (unknown) (unknown) Assessment and (units (unknown) date) Plan unknown) (unknown) (no (unknown) (unknown) Attending Dr: (units ( unknown) date) Rose Mary Mcdowell unknown) (unknown) (no (unknown) (unknown) BMI Refused (units (un known) date) unknown) (unknown) (no (unknown) (unknown) BMI Screening: (units (unknown) date) Yes BMI within unknown) normal limits (unknown) (no (unknown) (unknown) (units (unkno wn) date) Plan/Preferences unknown) (unknown) (no (unknown) (unknown) Planning (units (unknown) date) unknown) (unknown) (no (unknown) (unknown) Bleach (Sodium (units (unknown) date) Hypochlorite) unknown) Adverse Reaction (Severe, Verified 12/29/22 09:32) (unknown) (no (unknown) (unknown) Current Estimate (units (unknown) date) 08/02/23 LMP unknown) (Uncertain) 9w 1d (unknown) (no (unknown) (unknown) : 1990 (units (unknown) date) Acct:[id number] unknown) (unknown) (no (unknown) (unknown) Dept at (units (unkno wn) date) . unknown) (unknown) (no (unknown) (unknown) Diet and (units (unkno wn) date) Exercise unknown) (unknown) (no (unknown) (unknown) Difficulty (units (unk nown) date) Breathing unknown) (unknown) (no (unknown) (unknown) Documented By: (units (unknown) date) Rose Mary Mcdowell MD 12/29/22 0936 (unknown) (no (unknown) (unknown) Draft (units (unkno wn) date) unknown) (unknown) (no (unknown) (unknown) MARY BETH Calculator (units (unknown) date) unknown) (unknown) (no (unknown) (unknown) Estimated (units (unkn own) date) Delivery Date unknown) Method Current (unknown) (no (unknown) (unknown) Family History (units (unknown) date) (Updated 12/29/22 unknown) @ 09:36 by Janey Garcia RN) (unknown) (no (unknown) (unknown) [facility] ([facility] unknown) (unknown) (no (unknown) (unknown) Grandmother Lung (units (unknown) date) cancer unknown) (unknown) (no (unknown) (unknown) H/O knee surgery (units (unknown) date) unknown) (unknown) (no (unknown) (unknown) History of (units (unk nown) date) section unknown) (unknown) (no (unknown) (unknown) Hives (units (unkno wn) date) unknown) (unknown) (no (unknown) (unknown) Intake Clinical (units (unknown) date) Staff unknown) (unknown) (no (unknown) (unknown) Intake performed (units (unknown) date) by: unknown) Denzel Garcia (unknown) (no (unknown) (unknown) Intake (units (unkno wn) date) unknown) (unknown) (no (unknown) (unknown) Loc: [facility] (units (unkno wn) date) unknown) (unknown) (no (unknown) (unknown) Medical History (units (unknown) date) (Updated 12/25/22 unknown) @ 15:38 by Janey Garcia RN) (unknown) (no (unknown) (unknown) Medications (units (un known) date) unknown) (unknown) (no (unknown) (unknown) No significant (units (unknown) date) past medical unknown) history (unknown) (no (unknown) (unknown) OB Office Visit (units (unknown) date) unknown) (unknown) (no (unknown) (unknown) PFSH (units (unkno wn) date) unknown) (unknown) (no (unknown) (unknown) Patient: (units (unkno wn) date) Ana Judge D unknown) MR#: [id number] (unknown) (no (unknown) (unknown) Electrical Drafter: (units ( unknown) date) DOD unknown) (unknown) (no (unknown) (unknown) type:: (units (unknown) date) Other Normal unknown) (unknown) (no (unknown) (unknown) Visit (units (unknown) date) unknown) (unknown) (no (unknown) (unknown) Primary [facility] (units (u nknown) date) [facility] (unknown) (no (unknown) (unknown) Primary Ob (units (unk nown) date) Provider: unknown) Rose Mary Mcdowell (unknown) (no (unknown) (unknown) Providers (units (unkn own) date) unknown) (unknown) (no (unknown) (unknown) Rash (units (unkno wn) date) unknown) (unknown) (no (unknown) (unknown) Reason For Visit (units (unknown) date) unknown) (unknown) (no (unknown) (unknown) S/P (units (unkno wn) date) tonsillectomy unknown) (unknown) (no (unknown) (unknown) Safety (units (unkno wn) date) unknown) (unknown) (no (unknown) (unknown) Signed By: (units (unk nown) date) unknown) (unknown) (no (unknown) (unknown) Smoking Status: (units (unknown) date) Former smoker unknown) (quit in her early 20s) (unknown) (no (unknown) (unknown) Social History (units (unknown) date) unknown) (unknown) (no (unknown) (unknown) Surgical History (units (unknown) date) (Updated 12/29/22 unknown) @ 09:35 by Janey Garcia RN) (unknown) (no (unknown) (unknown) This note may (units ( unknown) date) have been all or unknown) partially generated using voice recognition (unknown) (no (unknown) (unknown) Tobacco + (units (unkn own) date) Substance Use unknown) (unknown) (no (unknown) (unknown) Tobacco Status (units (unknown) date) unknown) (unknown) (no (unknown) (unknown) Visit Reasons: (units (unknown) date) Telephone intake unknown) for July (unknown) (no (unknown) (unknown) WG (units (unkno wn) date) unknown) (unknown) (no (unknown) (unknown) alcohol intake: (units (unknown) date) former (rarely unknown) when not ) (unknown) (no (unknown) (unknown) and stopping (units (u nknown) date) OCP) unknown) (unknown) (no (unknown) (unknown) anesthesia duty (units (unknown) date) while ) unknown) (unknown) (no (unknown) (unknown) carbon monox (units (u nknown) date) detector in home: unknown) Yes (unknown) (no (unknown) (unknown) caregiver/suppor (units (unknown) date) t person: Yes unknown) (unknown) (no (unknown) (unknown) current (units (unkno wn) date) occupational unknown) exposures/hazards : Yes (several, but off Xray and (unknown) (no (unknown) (unknown) daily servings (units (unknown) date) fruits/ve or unknown) more times/day (unknown) (no (unknown) (unknown) do you feel safe (units (unknown) date) at home: Yes unknown) (unknown) (no (unknown) (unknown) during the past (units (unknown) date) year weight has: unknown) decreased > 10 lbs (-20 lb, likely r/t stress (unknown) (no (unknown) (unknown) education level: (units (unknown) date) college (some unknown) college, working on associate's degree) (unknown) (no (unknown) (unknown) fire (units (unkno wn) date) extinguisher in unknown) home: Yes (unknown) (no (unknown) (unknown) firearms in (units (un known) date) home: No unknown) (unknown) (no (unknown) (unknown) have occurred. (units (unknown) date) If there are any unknown) questions, please contact the Medical Records (unknown) (no (unknown) (unknown) helmet use: No (units (unknown) date) (Counseled to do unknown) so) (unknown) (no (unknown) (unknown) household (units (unkn own) date) members: unknown) significant other and children (unknown) (no (unknown) (unknown) housing: house (units (unknown) date) unknown) (unknown) (no (unknown) (unknown) lavender (units (unkno wn) date) (Lavandula unknown) angustifolia) Allergy (Intermediate, Verified 12/29/22 (unknown) (no (unknown) (unknown) lives (units (unkno wn) date) independently: unknown) Yes (unknown) (no (unknown) (unknown) may occur. 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 (units (unkn own) date) Although every unknown) effort is made to edit content, status controller errors (unknown) (no (unknown) (unknown) special teagan (units ( unknown) date) needs: No unknown) (unknown) (no (unknown) (unknown) substance use (units ( unknown) date) type: does not unknown) use (unknown) (no (unknown) (unknown) travel history: (units (unknown) date) recent (domestic unknown) only) (unknown) (no (unknown) (unknown) water heater (units (u nknown) date) temp set < 120 unknown) deg: Yes (unknown) (no (unknown) (unknown) well-balanced (units ( unknown) date) diet: daily or unknown) most days (unknown) (no (unknown) (unknown) working smoke (units ( unknown) date) detector in home: unknown) Yes Result panel 4 (unknown) (no (unknown) (unknown) (no value) (units (unk nown) date) unknown) (unknown) (no (unknown) (unknown) [id number] (units (unkno wn) date) unknown) (unknown) (no (unknown) (unknown) 12/29/22 (units (unkno wn) date) unknown) (unknown) (no (unknown) (unknown) 12/29/22] (units (unkn own) date) unknown) (unknown) (no (unknown) (unknown) 01/17/19 39 36 9 (units (unknown) date) lb 0.4 oz Male unknown) live - full ter (unknown) (no (unknown) (unknown) 09:32) (units (unkno wn) date) unknown) (unknown) (no (unknown) (unknown) 09/12/16 40.5 30 (units (unknown) date) 8 lb 14 oz Male unknown) live - full term (unknown) (no (unknown) (unknown) Add'l Plan (units (unk nown) date) Details unknown) (unknown) (no (unknown) (unknown) Age/Sex: 32 / F (units (unknown) date) Date of Service: unknown) (unknown) (no (unknown) (unknown) Allergies (units (unkn own) date) unknown) (unknown) (no (unknown) (unknown) [place], [place] (units ( unknown) date) [id number] unknown) (unknown) (no (unknown) (unknown) Assessment and (units (unknown) date) Plan unknown) (unknown) (no (unknown) (unknown) Attempted, poor (units (unknown) date) latch other Liamj unknown) (unknown) (no (unknown) (unknown) Attending Dr: (units ( unknown) date) Rose Mary Mcdowell unknown) (unknown) (no (unknown) (unknown) BMI Refused (units (un known) date) unknown) (unknown) (no (unknown) (unknown) BMI Screening: (units (unknown) date) Yes BMI within unknown) normal limits (unknown) (no (unknown) (unknown) (units (unkno wn) date) Plan/Preferences unknown) (unknown) (no (unknown) (unknown) Planning (units (unknown) date) unknown) (unknown) (no (unknown) (unknown) Bleach (Sodium (units (unknown) date) Hypochlorite) unknown) Adverse Reaction (Severe, Verified 12/29/22 09:32) (unknown) (no (unknown) (unknown) Breastfeed Preg (units (unknown) date) Comp Name unknown) (unknown) (no (unknown) (unknown) Current Estimate (units (unknown) date) 08/02/23 LMP unknown) (Uncertain) 9w 1d (unknown) (no (unknown) (unknown) Current (units (unkno wn) date) History unknown) (unknown) (no (unknown) (unknown) : 1990 (units (unknown) date) Acct:[id number] unknown) (unknown) (no (unknown) (unknown) Date of positive (units (unknown) date) home unknown) test: 12/17/22 (unknown) (no (unknown) (unknown) Del. Date (units (unkn own) date) GA/Weeks Labor unknown) Lgth Wt Sex Route Outcome Anesthesia Place (unknown) (no (unknown) (unknown) Delivery Date: (units (unknown) date) 09/12/16 Last unknown) Updated by: Janey Garcia RN (unknown) (no (unknown) (unknown) Delv (units (unkno wn) date) unknown) (unknown) (no (unknown) (unknown) Dept at (units (unkno wn) date) . unknown) (unknown) (no (unknown) (unknown) Diet and (units (unkno wn) date) Exercise unknown) (unknown) (no (unknown) (unknown) Difficulty (units (unk nown) date) Breathing unknown) (unknown) (no (unknown) (unknown) Documented By: (units (unknown) date) Rose Mary Mcdowell unknownChristoph DICKERSON 12/29/22 0936 (unknown) (no (unknown) (unknown) Draft (units (unkno wn) date) unknown) (unknown) (no (unknown) (unknown) MARY BETH Calculator (units (unknown) date) unknown) (unknown) (no (unknown) (unknown) [place] (units (un known) date) unknown) (unknown) (no (unknown) (unknown) Estimated (units (unkn own) date) Delivery Date unknown) Method Current (unknown) (no (unknown) (unknown) Family History (units (unknown) date) (Updated 12/29/22 unknown) @ 09:36 by Janey Garcia RN) (unknown) (no (unknown) (unknown) Father of Baby: (units (unknown) date) same unknown) (unknown) (no (unknown) (unknown) [facility] ([facility] unknown) (unknown) (no (unknown) (unknown) Grandmother Lung (units (unknown) date) cancer unknown) (unknown) (no (unknown) (unknown) 3 (units (unkn own) date) Multiple births 0 unknown) (unknown) (no (unknown) (unknown) H/O knee surgery (units (unknown) date) unknown) (unknown) (no (unknown) (unknown) History of (units (unk nown) date) section unknown) (unknown) (no (unknown) (unknown) Hives (units (unkno wn) date) unknown) (unknown) (no (unknown) (unknown) Hx # (units (u nknown) date) Pregnancies 0 unknown) Elective abortions 0 (unknown) (no (unknown) (unknown) Hx # Term (units (unkn own) date) Pregnancies 2 unknown) Ectopic pregnancies 0 (unknown) (no (unknown) (unknown) Intake Clinical (units (unknown) date) Staff unknown) (unknown) (no (unknown) (unknown) Intake performed (units (unknown) date) by: unknown) Denzel Garcia (unknown) (no (unknown) (unknown) Intake (units (unkno wn) date) unknown) (unknown) (no (unknown) (unknown) Loc: [facility] (units (unkno wn) date) unknown) (unknown) (no (unknown) (unknown) Marital status: (units (unknown) date) unmarried,living unknown) together (unknown) (no (unknown) (unknown) Medical History (units (unknown) date) (Updated 12/25/22 unknown) @ 15:38 by Janey Garcia RN) (unknown) (no (unknown) (unknown) Medications (units (un known) date) unknown) (unknown) (no (unknown) (unknown) No significant (units (unknown) date) past medical unknown) history (unknown) (no (unknown) (unknown) Number of Living (units (unknown) date) Children 2 unknown) (unknown) (no (unknown) (unknown) OB Office Visit (units (unknown) date) unknown) (unknown) (no (unknown) (unknown) PFSH (units (unkno wn) date) unknown) (unknown) (no (unknown) (unknown) Para 2 (units (unkno wn) date) Spontaneous unknown) abortions 0 (unknown) (no (unknown) (unknown) Partner: (units (unkno wn) date) Ruddy unknown) Jr. Chinedu (unknown) (no (unknown) (unknown) Past Pregnancies (units (unknown) date) unknown) (unknown) (no (unknown) (unknown) Patient: (units (unkno wn) date) Belem Judgeantonella Lala unknown) MR#: [id number] (unknown) (no (unknown) (unknown) Electrical Drafter: (units ( unknown) date) DOD unknown) (unknown) (no (unknown) (unknown) (units (unkn own) date) History unknown) (unknown) (no (unknown) (unknown) type:: (units (unknown) date) Other Normal unknown) (unknown) (no (unknown) (unknown) Initial (units (unknown) date) Assessment unknown) (unknown) (no (unknown) (unknown) Visit (units (unknown) date) unknown) (unknown) (no (unknown) (unknown) Primary [facility] (units (u nknown) date) [facility] [place] (unknown) (no (unknown) (unknown) Primary Ob (units (unk nown) date) Provider: unknown) Rose Mary Mcdowell (unknown) (no (unknown) (unknown) Providers (units (unkn own) date) unknown) (unknown) (no (unknown) (unknown) Rash (units (unkno wn) date) unknown) (unknown) (no (unknown) (unknown) Reason For Visit (units (unknown) date) unknown) (unknown) (no (unknown) (unknown) S/P (units (unkno wn) date) tonsillectomy unknown) (unknown) (no (unknown) (unknown) Safety (units (unkno wn) date) unknown) (unknown) (no (unknown) (unknown) Signed By: (units (unk nown) date) unknown) (unknown) (no (unknown) (unknown) Smoking Status: (units (unknown) date) Former smoker unknown) (quit in her early 20s) (unknown) (no (unknown) (unknown) Social History (units (unknown) date) unknown) (unknown) (no (unknown) (unknown) Surgical History (units (unknown) date) (Updated 12/29/22 unknown) @ 09:35 by Janey Garcia RN) (unknown) (no (unknown) (unknown) This note may (units ( unknown) date) have been all or unknown) partially generated using voice recognition (unknown) (no (unknown) (unknown) Tobacco + (units (unkn own) date) Substance Use unknown) (unknown) (no (unknown) (unknown) Tobacco Status (units (unknown) date) unknown) (unknown) (no (unknown) (unknown) Type(s) of (units (unk nown) date) 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, 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) (unknown) (no (unknown) (unknown) Unable 2/2 (units (unk nown) date) severe tongue tie unknown) none (unknown) (no (unknown) (unknown) Visit Reasons: (units (unknown) date) Telephone intake unknown) for [place] (unknown) (no (unknown) (unknown) WG (units (unkno wn) date) unknown) (unknown) (no (unknown) (unknown) alcohol intake: (units (unknown) date) former (rarely unknown) when not ) (unknown) (no (unknown) (unknown) and stopping (units (u nknown) date) OCP) unknown) (unknown) (no (unknown) (unknown) anesthesia duty (units (unknown) date) while ) unknown) (unknown) (no (unknown) (unknown) caffeine: Yes (units ( unknown) date) (aware of 200mg unknown) limit, trying to cut back) (unknown) (no (unknown) (unknown) carbon monox (units (u nknown) date) detector in home: unknown) Yes (unknown) (no (unknown) (unknown) caregiver/suppor (units (unknown) date) t person: Yes unknown) (unknown) (no (unknown) (unknown) current (units (unkno wn) date) occupational unknown) exposures/hazards : Yes (several, but off Xray and (unknown) (no (unknown) (unknown) daily servings (units (unknown) date) fruits/ve or unknown) more times/day (unknown) (no (unknown) (unknown) do you feel safe (units (unknown) date) at home: Yes unknown) (unknown) (no (unknown) (unknown) during the past (units (unknown) date) year weight has: unknown) decreased > 10 lbs (-20 lb, likely r/t stress (unknown) (no (unknown) (unknown) education level: (units (unknown) date) college (some unknown) college, working on associate's degree) (unknown) (no (unknown) (unknown) failure to (units (unk nown) date) progress Wilder unknown) (unknown) (no (unknown) (unknown) fire (units (unkno wn) date) extinguisher in unknown) home: Yes (unknown) (no (unknown) (unknown) firearms in (units (un known) date) home: No unknown) (unknown) (no (unknown) (unknown) have occurred. (units (unknown) date) If there are any unknown) questions, please contact the Medical Records (unknown) (no (unknown) (unknown) helmet use: No (units (unknown) date) (Counseled to do unknown) so) (unknown) (no (unknown) (unknown) household (units (unkn own) date) members: unknown) significant other and children (unknown) (no (unknown) (unknown) housing: house (units (unknown) date) unknown) (unknown) (no (unknown) (unknown) lavender (units (unkno wn) date) (Lavandula unknown) angustifolia) Allergy (Intermediate, Verified 12/29/22 (unknown) (no (unknown) (unknown) lives (units (unkno wn) date) independently: unknown) Yes (unknown) (no (unknown) (unknown) m Magdiel [place] (units ( unknown) date) unknown) (unknown) (no (unknown) (unknown) marital status: (units (unknown) date) unmarried,living unknown) together (unknown) (no (unknown) (unknown) may occur. 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) (unknown) (no (unknown) (unknown) (units (unk nown) date) infection unknown) (unknown) (no (unknown) (unknown) prenat.tammy fall, (units (unknown) date) [id number] 1 unknown) tab PO DAILY 06/11/18 [History Confirmed (unknown) (no (unknown) (unknown) read the note (units ( unknown) date) carefully and unknown) recognize, using context, where these substitutions (unknown) (no (unknown) (unknown) seatbelt use: (units ( unknown) date) always unknown) (unknown) (no (unknown) (unknown) second hand (units (un known) date) exposure: Yes unknown) (s/o smokes, outside) (unknown) (no (unknown) (unknown) software. (units (unkn own) date) Although every unknown) effort is made to edit content, status controller errors (unknown) (no (unknown) (unknown) special teagan (units ( unknown) date) needs: No unknown) (unknown) (no (unknown) (unknown) substance use (units ( unknown) date) type: does not unknown) use (unknown) (no (unknown) (unknown) travel history: (units (unknown) date) recent (domestic unknown) only) (unknown) (no (unknown) (unknown) water heater (units (u nknown) date) temp set < 120 unknown) deg: Yes (unknown) (no (unknown) (unknown) well-balanced (units ( unknown) date) diet: daily or unknown) most days (unknown) (no (unknown) (unknown) working smoke (units ( unknown) date) detector in home: unknown) Yes Result panel 5 (unknown) (no (unknown) (unknown) (no value) (units (unk nown) date) unknown) (unknown) (no (unknown) (unknown) [id number] (units (unkno wn) date) unknown) (unknown) (no (unknown) (unknown) 12/29/22 (units (unkno wn) date) unknown) (unknown) (no (unknown) (unknown) 12/29/22] (units (unkn own) date) unknown) (unknown) (no (unknown) (unknown) 01/17/19 39 36 9 (units (unknown) date) lb 0.4 oz Male unknown) live - full ter (unknown) (no (unknown) (unknown) 09:32) (units (unkno wn) date) unknown) (unknown) (no (unknown) (unknown) 09/12/16 40.5 30 (units (unknown) date) 8 lb 14 oz Male unknown) live - full term (unknown) (no (unknown) (unknown) Add'l Plan (units (unk nown) date) Details unknown) (unknown) (no (unknown) (unknown) Age/Sex: 32 / F (units (unknown) date) Date of Service: unknown) (unknown) (no (unknown) (unknown) Allergies (units (unkn own) date) unknown) (unknown) (no (unknown) (unknown) [place] (units ( unknown) date) [id number] unknown) (unknown) (no (unknown) (unknown) Assessment and (units (unknown) date) Plan unknown) (unknown) (no (unknown) (unknown) Attempted, poor (units (unknown) date) latch other Liamj unknown) (unknown) (no (unknown) (unknown) Attending Dr: (units ( unknown) date) Rose Mary Mcdowell unknown) (unknown) (no (unknown) (unknown) BMI Refused (units (un known) date) unknown) (unknown) (no (unknown) (unknown) BMI Screening: (units (unknown) date) Yes BMI within unknown) normal limits (unknown) (no (unknown) (unknown) (units (unkno wn) date) Plan/Preferences unknown) (unknown) (no (unknown) (unknown) Planning (units (unknown) date) unknown) (unknown) (no (unknown) (unknown) Bleach (Sodium (units (unknown) date) Hypochlorite) unknown) Adverse Reaction (Severe, Verified 12/29/22 09:32) (unknown) (no (unknown) (unknown) Breastfeed Preg (units (unknown) date) Comp Name unknown) (unknown) (no (unknown) (unknown) Current Estimate (units (unknown) date) 08/02/23 LMP unknown) (Uncertain) 9w 1d (unknown) (no (unknown) (unknown) Current (units (unkno wn) date) History unknown) (unknown) (no (unknown) (unknown) : 1990 (units (unknown) date) Acct:[id number] unknown) (unknown) (no (unknown) (unknown) Date of positive (units (unknown) date) home unknown) test: 12/17/22 (unknown) (no (unknown) (unknown) Del. Date (units (unkn own) date) GA/Weeks Labor unknown) Lgth Wt Sex Route Outcome Anesthesia Place (unknown) (no (unknown) (unknown) Delivery Date: (units (unknown) date) 09/12/16 Last unknown) Updated by: Janey Garcia RN (unknown) (no (unknown) (unknown) Delv (units (unkno wn) date) unknown) (unknown) (no (unknown) (unknown) Dept at (units (unkno wn) date) . unknown) (unknown) (no (unknown) (unknown) Diet and (units (unkno wn) date) Exercise unknown) (unknown) (no (unknown) (unknown) Difficulty (units (unk nown) date) Breathing unknown) (unknown) (no (unknown) (unknown) Documented By: (units (unknown) date) Rose Mary Mcdowell unknownChristoph DICKERSON 12/29/22 0936 (unknown) (no (unknown) (unknown) Draft (units (unkno wn) date) unknown) (unknown) (no (unknown) (unknown) MARY BETH Calculator (units (unknown) date) unknown) (unknown) (no (unknown) (unknown) [place] (units (un known) date) unknown) (unknown) (no (unknown) (unknown) Estimated (units (unkn own) date) Delivery Date unknown) Method Current (unknown) (no (unknown) (unknown) Family History (units (unknown) date) (Updated 12/29/22 unknown) @ 09:36 by Janey Garcia RN) (unknown) (no (unknown) (unknown) Father of Baby: (units (unknown) date) same unknown) (unknown) (no (unknown) (unknown) [facility] (units (unknown) date[facility] unknown) (unknown) (no (unknown) (unknown) Grandmother Lung (units (unknown) date) cancer unknown) (unknown) (no (unknown) (unknown) 3 (units (unkn own) date) Multiple births 0 unknown) (unknown) (no (unknown) (unknown) H/O knee surgery (units (unknown) date) unknown) (unknown) (no (unknown) (unknown) History of (units (unk nown) date) section unknown) (unknown) (no (unknown) (unknown) Hives (units (unkno wn) date) unknown) (unknown) (no (unknown) (unknown) Hx # (units (u nknown) date) Pregnancies 0 unknown) Elective abortions 0 (unknown) (no (unknown) (unknown) Hx # Term (units (unkn own) date) Pregnancies 2 unknown) Ectopic pregnancies 0 (unknown) (no (unknown) (unknown) Intake Clinical (units (unknown) date) Staff unknown) (unknown) (no (unknown) (unknown) Intake performed (units (unknown) date) by: unknown) Denzel Garcia (unknown) (no (unknown) (unknown) Intake (units (unkno wn) date) unknown) (unknown) (no (unknown) (unknown) Loc: [facility] (units (unkno wn) date) unknown) (unknown) (no (unknown) (unknown) Marital status: (units (unknown) date) unmarried,living unknown) together (unknown) (no (unknown) (unknown) Medical History (units (unknown) date) (Updated 12/25/22 unknown) @ 15:38 by Janey Garcia RN) (unknown) (no (unknown) (unknown) Medications (units (un known) date) unknown) (unknown) (no (unknown) (unknown) No significant (units (unknown) date) past medical unknown) history (unknown) (no (unknown) (unknown) Number of Living (units (unknown) date) Children 2 unknown) (unknown) (no (unknown) (unknown) OB Office Visit (units (unknown) date) unknown) (unknown) (no (unknown) (unknown) On control (units (unknown) date) at conception?: unknown) No (unknown) (no (unknown) (unknown) PFSH (units (unkno wn) date) unknown) (unknown) (no (unknown) (unknown) Para 2 (units (unkno wn) date) Spontaneous unknown) abortions 0 (unknown) (no (unknown) (unknown) Partner: (units (unkno wn) date) Ruddy unknown) Jr. Chinedu (unknown) (no (unknown) (unknown) Past Pregnancies (units (unknown) date) unknown) (unknown) (no (unknown) (unknown) Patient: (units (unkno wn) date) Ana Judge unknown) MR#: [id number] (unknown) (no (unknown) (unknown) Electrical Drafter: (units ( unknown) date) DOD unknown) (unknown) (no (unknown) (unknown) (units (unkn own) date) History unknown) (unknown) (no (unknown) (unknown) type:: (units (unknown) date) Other Normal unknown) (unknown) (no (unknown) (unknown) Initial (units (unknown) date) Assessment unknown) (unknown) (no (unknown) (unknown) Visit (units (unknown) date) unknown) (unknown) (no (unknown) (unknown) Primary Care (units (u nknown) date) [facility] [place] (unknown) (no (unknown) (unknown) Primary Ob (units (unk nown) date) Provider: unknown) Rose Mary Mcdowell (unknown) (no (unknown) (unknown) Providers (units (unkn own) date) unknown) (unknown) (no (unknown) (unknown) Rash (units (unkno wn) date) unknown) (unknown) (no (unknown) (unknown) Reason For Visit (units (unknown) date) unknown) (unknown) (no (unknown) (unknown) S/P (units (unkno wn) date) tonsillectomy unknown) (unknown) (no (unknown) (unknown) Safety (units (unkno wn) date) unknown) (unknown) (no (unknown) (unknown) Signed By: (units (unk nown) date) unknown) (unknown) (no (unknown) (unknown) Smoking Status: (units (unknown) date) Former smoker unknown) (quit in her early 20s) (unknown) (no (unknown) (unknown) Social History (units (unknown) date) unknown) (unknown) (no (unknown) (unknown) Surgical History (units (unknown) date) (Updated 12/29/22 unknown) @ 09:35 by Janey Garcia RN) (unknown) (no (unknown) (unknown) Symptoms since (units (unknown) date) LMP: Reports unknown) amenorrhea and nausea (unknown) (no (unknown) (unknown) This note may (units ( unknown) date) have been all or unknown) partially generated using voice recognition (unknown) (no (unknown) (unknown) Tobacco + (units (unkn own) date) Substance Use unknown) (unknown) (no (unknown) (unknown) Tobacco Status (units (unknown) date) unknown) (unknown) (no (unknown) (unknown) Type(s) of (units (unk nown) date) 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, 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) (unknown) (no (unknown) (unknown) Unable 2/2 (units (unk nown) date) severe tongue tie unknown) none (unknown) (no (unknown) (unknown) Visit Reasons: (units (unknown) date) Telephone intake unknown) for [place] (unknown) (no (unknown) (unknown) WG (units (unkno wn) date) unknown) (unknown) (no (unknown) (unknown) alcohol intake: (units (unknown) date) former (rarely unknown) when not ) (unknown) (no (unknown) (unknown) and stopping (units (u nknown) date) OCP) unknown) (unknown) (no (unknown) (unknown) anesthesia duty (units (unknown) date) while ) unknown) (unknown) (no (unknown) (unknown) caffeine: Yes (units ( unknown) date) (aware of 200mg unknown) limit, trying to cut back) (unknown) (no (unknown) (unknown) carbon monox (units (u nknown) date) detector in home: unknown) Yes (unknown) (no (unknown) (unknown) caregiver/suppor (units (unknown) date) t person: Yes unknown) (unknown) (no (unknown) (unknown) current (units (unkno wn) date) occupational unknown) exposures/hazards : Yes (several, but off Xray and (unknown) (no (unknown) (unknown) daily servings (units (unknown) date) fruits/ve or unknown) more times/day (unknown) (no (unknown) (unknown) do you feel safe (units (unknown) date) at home: Yes unknown) (unknown) (no (unknown) (unknown) during the past (units (unknown) date) year weight has: unknown) decreased > 10 lbs (-20 lb, likely r/t stress (unknown) (no (unknown) (unknown) education level: (units (unknown) date) college (some unknown) college, working on associate's degree) (unknown) (no (unknown) (unknown) failure to (units (unk nown) date) progress [place] unknown) (unknown) (no (unknown) (unknown) fire (units (unkno wn) date) extinguisher in unknown) home: Yes (unknown) (no (unknown) (unknown) firearms in (units (un known) date) home: No unknown) (unknown) (no (unknown) (unknown) have occurred. (units (unknown) date) If there are any unknown) questions, please contact the Medical Records (unknown) (no (unknown) (unknown) helmet use: No (units (unknown) date) (Counseled to do unknown) so) (unknown) (no (unknown) (unknown) household (units (unkn own) date) members: unknown) significant other and children (unknown) (no (unknown) (unknown) housing: house (units (unknown) date) unknown) (unknown) (no (unknown) (unknown) lavender (units (unkno wn) date) (Lavandula unknown) angustifolia) Allergy (Intermediate, Verified 12/29/22 (unknown) (no (unknown) (unknown) lives (units (unkno wn) date) independently: unknown) Yes (unknown) (no (unknown) (unknown) m Magdiel [place], [place] (units ( unknown) date) unknown) (unknown) (no (unknown) (unknown) marital status: (units (unknown) date) unmarried,living unknown) together (unknown) (no (unknown) (unknown) may occur. 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) (unknown) (no (unknown) (unknown) (units (unk nown) date) infection unknown) (unknown) (no (unknown) (unknown) prenat.vits,tammy, (units (unknown) date) [id number] 1 unknown) tab PO DAILY 06/11/18 [History Confirmed (unknown) (no (unknown) (unknown) read the note (units ( unknown) date) carefully and unknown) recognize, using context, where these substitutions (unknown) (no (unknown) (unknown) seatbelt use: (units ( unknown) date) always unknown) (unknown) (no (unknown) (unknown) second hand (units (un known) date) exposure: Yes unknown) (s/o smokes, outside) (unknown) (no (unknown) (unknown) software. (units (unkn own) date) Although every unknown) effort is made to edit content, status controller errors (unknown) (no (unknown) (unknown) special teagan (units ( unknown) date) needs: No unknown) (unknown) (no (unknown) (unknown) substance use (units ( unknown) date) type: does not unknown) use (unknown) (no (unknown) (unknown) travel history: (units (unknown) date) recent (domestic unknown) only) (unknown) (no (unknown) (unknown) water heater (units (u nknown) date) temp set < 120 unknown) deg: Yes (unknown) (no (unknown) (unknown) well-balanced (units ( unknown) date) diet: daily or unknown) most days (unknown) (no (unknown) (unknown) working smoke (units ( unknown) date) detector in home: unknown) Yes Result panel 6 (unknown) (no (unknown) (unknown) (no value) (units (unk nown) date) unknown) (unknown) (no (unknown) (unknown) (constipation, (units (unknown) date) gums bleeding w/ unknown) brushing) (unknown) (no (unknown) (unknown) Genetic (units (unkn own) date) Screening/Teratol unknown) ogy Counseling - Includes patient, baby's father, or (unknown) (no (unknown) (unknown) [id number] (units (unkno wn) date) unknown) (unknown) (no (unknown) (unknown) 12/29/22 (units (unkno wn) date) unknown) (unknown) (no (unknown) (unknown) 12/29/22] (units (unkn own) date) unknown) (unknown) (no (unknown) (unknown) 01/17/19 39 36 9 (units (unknown) date) lb 0.4 oz Male unknown) live - full ter (unknown) (no (unknown) (unknown) 09:32) (units (unkno wn) date) unknown) (unknown) (no (unknown) (unknown) 09/12/16 40.5 30 (units (unknown) date) 8 lb 14 oz Male unknown) live - full term (unknown) (no (unknown) (unknown) Add'l Plan (units (unk nown) date) Details unknown) (unknown) (no (unknown) (unknown) Age/Sex: 32 / F (units (unknown) date) Date of Service: unknown) (unknown) (no (unknown) (unknown) Allergies (units (unkn own) date) unknown) (unknown) (no (unknown) (unknown) [place], [place] (units ( unknown) date) [id number] unknown) (unknown) (no (unknown) (unknown) Aneuploidy (units (unk nown) date) Screening unknown) Offered: Declined (unknown) (no (unknown) (unknown) Anticipated (units (un known) date) course of unknown) care: discussed (unknown) (no (unknown) (unknown) Assessment and (units (unknown) date) Plan unknown) (unknown) (no (unknown) (unknown) Attempted, poor (units (unknown) date) latch other Liamj unknown) (unknown) (no (unknown) (unknown) Attending Dr: (units ( unknown) date) Rose Mary Mcdowell unknown) (unknown) (no (unknown) (unknown) BMI Refused (units (un known) date) unknown) (unknown) (no (unknown) (unknown) BMI Screening: (units (unknown) date) Yes BMI within unknown) normal limits (unknown) (no (unknown) (unknown) (units (unkno wn) date) Plan/Preferences unknown) (unknown) (no (unknown) (unknown) Planning (units (unknown) date) unknown) (unknown) (no (unknown) (unknown) Bleach (Sodium (units (unknown) date) Hypochlorite) unknown) Adverse Reaction (Severe, Verified 12/29/22 09:32) (unknown) (no (unknown) (unknown) Breastfeed Preg (units (unknown) date) Comp Name unknown) (unknown) (no (unknown) (unknown) Current Estimate (units (unknown) date) 08/02/23 LMP unknown) (Uncertain) 9w 1d (unknown) (no (unknown) (unknown) Current (units (unkno wn) date) History unknown) (unknown) (no (unknown) (unknown) : 1990 (units (unknown) date) Acct:[id number] unknown) (unknown) (no (unknown) (unknown) Date of positive (units (unknown) date) home unknown) test: 12/17/22 (unknown) (no (unknown) (unknown) Del. Date (units (unkn own) date) GA/Weeks Labor unknown) Lgth Wt Sex Route Outcome Anesthesia Place (unknown) (no (unknown) (unknown) Delivery Date: (units (unknown) date) 09/12/16 Last unknown) Updated by: Janey Garcia RN (unknown) (no (unknown) (unknown) Delv (units (unkno wn) date) unknown) (unknown) (no (unknown) (unknown) Denies Congenital (units (unknown) date) Heart Defect, unknown) Denies Down Syndrome, Denies Muscular Dystrophy, (unknown) (no (unknown) (unknown) Denies Maternal (units (unknown) date) Metabolic unknown) Disorder (EG,TYPE 1 Diabetes, PKU), Denies Patient or (unknown) (no (unknown) (unknown) Denies Neural (units ( unknown) date) Tube Defect unknown) (Meningomyelocele , Spina Bifida, or Anencephaly), (unknown) (no (unknown) (unknown) Denies Sickle (units ( unknown) date) Cell Disease or unknown) Trait (), Denies Hemophilia or other blood (unknown) (no (unknown) (unknown) Denies Darius-Sachs (units (unknown) date) (Ashkenazi unknown) Jehovah'S Witness, Cajun, Mal[place]ian Finnish), Denies Jacob (unknown) (no (unknown) (unknown) Dept at (units (unkno wn) date) . unknown) (unknown) (no (unknown) (unknown) Diet and (units (unkno wn) date) Exercise unknown) (unknown) (no (unknown) (unknown) Difficulty (units (unk nown) date) Breathing unknown) (unknown) (no (unknown) (unknown) Disease (units (unkno wn) date) (Ashkenazi unknown) Jehovah'S Witness), Denies Familial Dysautonomia (Ashkenazi Jehovah'S Witness), (unknown) (no (unknown) (unknown) Documented By: (units (unknown) date) Rose Mary Mcdowell unknownChristoph DICKERSON 12/29/22 0936 (unknown) (no (unknown) (unknown) Draft (units (unkno wn) date) unknown) (unknown) (no (unknown) (unknown) MARY BETH Calculator (units (unknown) date) unknown) (unknown) (no (unknown) (unknown) [facility] (units (un known) date) unknown) (unknown) (no (unknown) (unknown) Estimated (units (unkn own) date) Delivery Date unknown) Method Current (unknown) (no (unknown) (unknown) Family History (units (unknown) date) (Updated 12/29/22 unknown) @ 09:36 by Janey Garcia RN) (unknown) (no (unknown) (unknown) Father of Baby: (units (unknown) date) same unknown) (unknown) (no (unknown) (unknown) [facility] ([facility] unknown) (unknown) (no (unknown) (unknown) First Trimester (units (unknown) date) Education unknown) Checklist (unknown) (no (unknown) (unknown) Genetic (units (unkno wn) date) Screening + unknown) Counseling (unknown) (no (unknown) (unknown) Genetic (units (unkno wn) date) Screening unknown) (unknown) (no (unknown) (unknown) Grandmother Lung (units (unknown) date) cancer unknown) (unknown) (no (unknown) (unknown) 3 (units (unkn own) date) Multiple births 0 unknown) (unknown) (no (unknown) (unknown) H/O knee surgery (units (unknown) date) unknown) (unknown) (no (unknown) (unknown) HIV risk (units (unkno wn) date) evaluation: low unknown) risk (unknown) (no (unknown) (unknown) Hepatitis C risk (units (unknown) date) evaluation: low unknown) risk (unknown) (no (unknown) (unknown) History of (units (unk nown) date) Hepatitis B: No unknown) (unknown) (no (unknown) (unknown) History of (units (unk nown) date) Hepatitis C: No unknown) (unknown) (no (unknown) (unknown) History of (units (unk nown) date) section unknown) (unknown) (no (unknown) (unknown) Hives (units (unkno wn) date) unknown) (unknown) (no (unknown) (unknown) [place] (units (u nknown) date) Chorea, Denies unknown) Other inherited genetic or chromosomal disorder, (unknown) (no (unknown) (unknown) Hx # (units (u nknown) date) Pregnancies 0 unknown) Elective abortions 0 (unknown) (no (unknown) (unknown) Hx # Term (units (unkn own) date) Pregnancies 2 unknown) Ectopic pregnancies 0 (unknown) (no (unknown) (unknown) Infection (units (unkn own) date) History unknown) (unknown) (no (unknown) (unknown) Intake Clinical (units (unknown) date) Staff unknown) (unknown) (no (unknown) (unknown) Intake performed (units (unknown) date) by: unknown) Denzel Garcia (unknown) (no (unknown) (unknown) Intake (units (unkno wn) date) unknown) (unknown) (no (unknown) (unknown) Live with (units (unkn own) date) someone with TB unknown) or exposed to TB: No (unknown) (no (unknown) (unknown) Loc: [facility] (units (unkno wn) date) unknown) (unknown) (no (unknown) (unknown) Marital status: (units (unknown) date) unmarried,living unknown) together (unknown) (no (unknown) (unknown) Medical History (units (unknown) date) (Updated 12/25/22 unknown) @ 15:38 by Janey Garcia RN) (unknown) (no (unknown) (unknown) Medications (units (un known) date) unknown) (unknown) (no (unknown) (unknown) No significant (units (unknown) date) past medical unknown) history (unknown) (no (unknown) (unknown) Number of Living (units (unknown) date) Children 2 unknown) (unknown) (no (unknown) (unknown) OB Office Visit (units (unknown) date) unknown) (unknown) (no (unknown) (unknown) On control (units (unknown) date) at conception?: unknown) No (unknown) (no (unknown) (unknown) PFSH (units (unkno wn) date) unknown) (unknown) (no (unknown) (unknown) Para 2 (units (unkno wn) date) Spontaneous unknown) abortions 0 (unknown) (no (unknown) (unknown) Partner history (units (unknown) date) of STD: denies hx unknown) (unknown) (no (unknown) (unknown) Partner history (units (unknown) date) of genital unknown) herpes: No (unknown) (no (unknown) (unknown) Partner: (units (unkno wn) date) Ruddy unknown) Jr. Chinedu (unknown) (no (unknown) (unknown) Past Pregnancies (units (unknown) date) unknown) (unknown) (no (unknown) (unknown) Patient's age 37 (units (unknown) date) years or older as unknown) of estimated date of delivery: No (unknown) (no (unknown) (unknown) Patient: (units (unkno wn) date) Ana Judge unknown) MR#: [id number] (unknown) (no (unknown) (unknown) Electrical Drafter: (units ( unknown) date) DOD unknown) (unknown) (no (unknown) (unknown) Personal history (units (unknown) date) of STD: HPV and unknown) denies hx (unknown) (no (unknown) (unknown) Personal history (units (unknown) date) of genital unknown) herpes: No (unknown) (no (unknown) (unknown) (units (unkn own) date) History unknown) (unknown) (no (unknown) (unknown) type:: (units (unknown) date) Other Normal unknown) (unknown) (no (unknown) (unknown) (units (unkno wn) date) Education unknown) (unknown) (no (unknown) (unknown) Initial (units (unknown) date) Assessment unknown) (unknown) (no (unknown) (unknown) Visit (units (unknown) date) unknown) (unknown) (no (unknown) (unknown) Primary Care (units (u nknown) date) [facility] [place] (unknown) (no (unknown) (unknown) Primary Ob (units (unk nown) date) Provider: unknown) Rose Mary Mcdowell (unknown) (no (unknown) (unknown) Prior (units (unkno wn) date) GBS-Infected unknown) child: No (unknown) (no (unknown) (unknown) Providers (units (unkn own) date) unknown) (unknown) (no (unknown) (unknown) Rash or viral (units ( unknown) date) illness since unknown) last menstrual period: No (unknown) (no (unknown) (unknown) Rash (units (unkno wn) date) unknown) (unknown) (no (unknown) (unknown) Reason For Visit (units (unknown) date) unknown) (unknown) (no (unknown) (unknown) Recent travel (units ( unknown) date) outside of unknown) country?: No (unknown) (no (unknown) (unknown) Recurrent (units (unkn own) date) loss or unknown) a stillbirth: No (unknown) (no (unknown) (unknown) S/P (units (unkno wn) date) tonsillectomy unknown) (unknown) (no (unknown) (unknown) Safety (units (unkno wn) date) unknown) (unknown) (no (unknown) (unknown) Signed By: (units (unk nown) date) unknown) (unknown) (no (unknown) (unknown) Smoking Status: (units (unknown) date) Former smoker unknown) (quit in her early 20s) (unknown) (no (unknown) (unknown) Social History (units (unknown) date) unknown) (unknown) (no (unknown) (unknown) Surgical History (units (unknown) date) (Updated 12/29/22 unknown) @ 09:35 by Janey Garcia RN) (unknown) (no (unknown) (unknown) Symptoms since (units (unknown) date) LMP: Reports unknown) amenorrhea, nausea (very mild) and other (unknown) (no (unknown) (unknown) Teratogen (units (unkno wn) date) Exposures since unknown) LMP/Conception: Reports other (X-ray and anesthesia at (unknown) (no (unknown) (unknown) This note may (units ( unknown) date) have been all or unknown) partially generated using voice recognition (unknown) (no (unknown) (unknown) Tobacco + (units (unkn own) date) Substance Use unknown) (unknown) (no (unknown) (unknown) Tobacco Status (units (unknown) date) unknown) (unknown) (no (unknown) (unknown) Type(s) of (units (unk nown) date) 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, 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) (unknown) (no (unknown) (unknown) Unable 2/2 (units (unk nown) date) severe tongue tie unknown) none (unknown) (no (unknown) (unknown) Varicella/chicke (units (unknown) date) n pox status: unknown) immunized (only 1 dose) (unknown) (no (unknown) (unknown) Visit Reasons: (units (unknown) date) Telephone intake unknown) for [place] (unknown) (no (unknown) (unknown) WG (units (unkno wn) date) unknown) (unknown) (no (unknown) (unknown) Zika virus (units (unk nown) date) exposure: No unknown) (unknown) (no (unknown) (unknown) alcohol intake: (units (unknown) date) former (rarely unknown) when not ) (unknown) (no (unknown) (unknown) and stopping (units (u nknown) date) OCP) unknown) (unknown) (no (unknown) (unknown) anesthesia duty (units (unknown) date) while ) unknown) (unknown) (no (unknown) (unknown) anyone in either (units (unknown) date) family with: unknown) (unknown) (no (unknown) (unknown) baby's father (units ( unknown) date) had a child with unknown) defects not listed above and Denies Other (unknown) (no (unknown) (unknown) caffeine: Yes (units ( unknown) date) (aware of 200mg unknown) limit, trying to cut back) (unknown) (no (unknown) (unknown) carbon monox (units (u nknown) date) detector in home: unknown) Yes (unknown) (no (unknown) (unknown) caregiver/suppor (units (unknown) date) t person: Yes unknown) (unknown) (no (unknown) (unknown) current (units (unkno wn) date) occupational unknown) exposures/hazards : Yes (several, but off Xray and (unknown) (no (unknown) (unknown) daily servings (units (unknown) date) fruits/ve or unknown) more times/day (unknown) (no (unknown) (unknown) disorders, (units (unk nown) date) Denies Cystic unknown) Fibrosis, Denies Mental Retardation/Autis m, Denies (unknown) (no (unknown) (unknown) do you feel safe (units (unknown) date) at home: Yes unknown) (unknown) (no (unknown) (unknown) during the past (units (unknown) date) year weight has: unknown) decreased > 10 lbs (-20 lb, likely r/t stress (unknown) (no (unknown) (unknown) education level: (units (unknown) date) college (some unknown) college, working on associate's degree) (unknown) (no (unknown) (unknown) failure to (units (unk nown) date) progress Wilder unknown) (unknown) (no (unknown) (unknown) fire (units (unkno wn) date) extinguisher in unknown) home: Yes (unknown) (no (unknown) (unknown) firearms in (units (un known) date) home: No unknown) (unknown) (no (unknown) (unknown) have occurred. (units (unknown) date) If there are any unknown) questions, please contact the Medical Records (unknown) (no (unknown) (unknown) helmet use: No (units (unknown) date) (Counseled to do unknown) so) (unknown) (no (unknown) (unknown) household (units (unkn own) date) members: unknown) significant other and children (unknown) (no (unknown) (unknown) housing: house (units (unknown) date) unknown) (unknown) (no (unknown) (unknown) lavender (units (unkno wn) date) (Lavandula unknown) angustifolia) Allergy (Intermediate, Verified 12/29/22 (unknown) (no (unknown) (unknown) lives (units (unkno wn) date) independently: unknown) Yes (unknown) (no (unknown) (unknown) m [facility] (units ( unknown) date) unknown) (unknown) (no (unknown) (unknown) marital status: (units (unknown) date) unmarried,living unknown) together (unknown) (no (unknown) (unknown) may occur. 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) (unknown) (no (unknown) (unknown) (units (unk nown) date) infection unknown) (unknown) (no (unknown) (unknown) prenat.vits,tammy, (units (unknown) date) xan-smhd-ldwue 1 unknown) tab PO DAILY 06/11/18 [History Confirmed (unknown) (no (unknown) (unknown) read the note (units ( unknown) date) carefully and unknown) recognize, using context, where these substitutions (unknown) (no (unknown) (unknown) seatbelt use: (units ( unknown) date) always unknown) (unknown) (no (unknown) (unknown) second hand (units (un known) date) exposure: Yes unknown) (s/o smokes, outside) (unknown) (no (unknown) (unknown) software. (units (unkn own) date) Although every unknown) effort is made to edit content, status controller errors (unknown) (no (unknown) (unknown) special teagan (units ( unknown) date) needs: No unknown) (unknown) (no (unknown) (unknown) substance use (units ( unknown) date) type: does not unknown) use (unknown) (no (unknown) (unknown) travel history: (units (unknown) date) recent (domestic unknown) only) (unknown) (no (unknown) (unknown) water heater (units (u nknown) date) temp set < 120 unknown) deg: Yes (unknown) (no (unknown) (unknown) well-balanced (units ( unknown) date) diet: daily or unknown) most days (unknown) (no (unknown) (unknown) work prior to (units ( unknown) date) knowing of unknown) ) (unknown) (no (unknown) (unknown) working smoke (units ( unknown) date) detector in home: unknown) Yes Result panel 7 (unknown) (no (unknown) (unknown) (no value) (units (unk nown) date) unknown) (unknown) (no (unknown) (unknown) (constipation, (units (unknown) date) gums bleeding w/ unknown) brushing) (unknown) (no (unknown) (unknown) Genetic (units (unkn own) date) Screening/Teratol unknown) ogy Counseling - Includes patient, baby's father, or (unknown) (no (unknown) (unknown) [id number] (units (unkno wn) date) unknown) (unknown) (no (unknown) (unknown) 12/29/22 (units (unkno wn) date) unknown) (unknown) (no (unknown) (unknown) 12/29/22] (units (unkn own) date) unknown) (unknown) (no (unknown) (unknown) 01/17/19 39 36 9 (units (unknown) date) lb 0.4 oz Male unknown) live - full ter (unknown) (no (unknown) (unknown) 09:32) (units (unkno wn) date) unknown) (unknown) (no (unknown) (unknown) 09/12/16 40.5 30 (units (unknown) date) 8 lb 14 oz Male unknown) live - full term (unknown) (no (unknown) (unknown) Abnormal lab (units (u nknown) date) values 1st unknown) trimester: discussed (unknown) (no (unknown) (unknown) Add'l Plan (units (unk nown) date) Details unknown) (unknown) (no (unknown) (unknown) Age/Sex: 32 / F (units (unknown) date) Date of Service: unknown) (unknown) (no (unknown) (unknown) Allergies (units (unkn own) date) unknown) (unknown) (no (unknown) (unknown) [place], [place] (units ( unknown) date) [id number] unknown) (unknown) (no (unknown) (unknown) Aneuploidy (units (unk nown) date) Screening unknown) Offered: Declined (unknown) (no (unknown) (unknown) Anticipated (units (un known) date) course of unknown) care: discussed (unknown) (no (unknown) (unknown) Assessment and (units (unknown) date) Plan unknown) (unknown) (no (unknown) (unknown) Attempted, poor (units (unknown) date) latch other Liamj unknown) (unknown) (no (unknown) (unknown) Attending Dr: (units ( unknown) date) Rose Mary Mcdowell unknown) (unknown) (no (unknown) (unknown) BMI Refused (units (un known) date) unknown) (unknown) (no (unknown) (unknown) BMI Screening: (units (unknown) date) Yes BMI within unknown) normal limits (unknown) (no (unknown) (unknown) (units (unkno wn) date) Plan/Preferences unknown) (unknown) (no (unknown) (unknown) Planning (units (unknown) date) unknown) (unknown) (no (unknown) (unknown) Bleach (Sodium (units (unknown) date) Hypochlorite) unknown) Adverse Reaction (Severe, Verified 12/29/22 09:32) (unknown) (no (unknown) (unknown) Breastfeed Preg (units (unknown) date) Comp Name unknown) (unknown) (no (unknown) (unknown) Current Estimate (units (unknown) date) 08/02/23 LMP unknown) (Uncertain) 9w 1d (unknown) (no (unknown) (unknown) Current (units (unkno wn) date) History unknown) (unknown) (no (unknown) (unknown) : 1990 (units (unknown) date) Acct:[id number] unknown) (unknown) (no (unknown) (unknown) Date of positive (units (unknown) date) home unknown) test: 12/17/22 (unknown) (no (unknown) (unknown) Del. Date (units (unkn own) date) GA/Weeks Labor unknown) Lgth Wt Sex Route Outcome Anesthesia Place (unknown) (no (unknown) (unknown) Delivery Date: (units (unknown) date) 09/12/16 Last unknown) Updated by: Janey Radha, RN (unknown) (no (unknown) (unknown) Delv (units (unkno wn) date) unknown) (unknown) (no (unknown) (unknown) Denies Congenital (units (unknown) date) Heart Defect, unknown) Denies Down Syndrome, Denies Muscular Dystrophy, (unknown) (no (unknown) (unknown) Denies Maternal (units (unknown) date) Metabolic unknown) Disorder (EG,TYPE 1 Diabetes, PKU), Denies Patient or (unknown) (no (unknown) (unknown) Denies Neural (units ( unknown) date) Tube Defect unknown) (Meningomyelocele , Spina Bifida, or Anencephaly), (unknown) (no (unknown) (unknown) Denies Sickle (units ( unknown) date) Cell Disease or unknown) Trait (), Denies Hemophilia or other blood (unknown) (no (unknown) (unknown) Denies Darius-Sachs (units (unknown) date) (Ashkenazi unknown) Jehovah'S Witness, Cajun, [place]ian Finnish), Denies Jacob (unknown) (no (unknown) (unknown) Depression: (units (un known) date) discussed unknown) (unknown) (no (unknown) (unknown) Dept at (units (unkno wn) date) . unknown) (unknown) (no (unknown) (unknown) Diet and (units (unkno wn) date) Exercise unknown) (unknown) (no (unknown) (unknown) Difficulty (units (unk nown) date) Breathing unknown) (unknown) (no (unknown) (unknown) Disease (units (unkno wn) date) (Ashkenazi unknown) Jehovah'S Witness), Denies Familial Dysautonomia (Ashkenazi Jehovah'S Witness), (unknown) (no (unknown) (unknown) Documented By: (units (unknown) date) Rose Mary Mcdowell unknownChristoph DICKERSON 12/29/22 0936 (unknown) (no (unknown) (unknown) Draft (units (unkno wn) date) unknown) (unknown) (no (unknown) (unknown) MARY BETH Calculator (units (unknown) date) unknown) (unknown) (no (unknown) (unknown) [facility] (units (un known) date) unknown) (unknown) (no (unknown) (unknown) Estimated (units (unkn own) date) Delivery Date unknown) Method Current (unknown) (no (unknown) (unknown) Family History (units (unknown) date) (Updated 12/29/22 unknown) @ 09:36 by Janey Garcia RN) (unknown) (no (unknown) (unknown) Father of Baby: (units (unknown) date) same unknown) (unknown) (no (unknown) (unknown) [facility] unknown) (unknown) (no (unknown) (unknown) First Trimester (units (unknown) date) Education unknown) Checklist (unknown) (no (unknown) (unknown) Genetic (units (unkno wn) date) Screening + unknown) Counseling (unknown) (no (unknown) (unknown) Genetic (units (unkno wn) date) Screening unknown) (unknown) (no (unknown) (unknown) Grandmother Lung (units (unknown) date) cancer unknown) (unknown) (no (unknown) (unknown) 3 (units (unkn own) date) Multiple births 0 unknown) (unknown) (no (unknown) (unknown) H/O knee surgery (units (unknown) date) unknown) (unknown) (no (unknown) (unknown) HIV risk (units (unkno wn) date) evaluation: low unknown) risk (unknown) (no (unknown) (unknown) Hepatitis C risk (units (unknown) date) evaluation: low unknown) risk (unknown) (no (unknown) (unknown) History of (units (unk nown) date) Hepatitis B: No unknown) (unknown) (no (unknown) (unknown) History of (units (unk nown) date) Hepatitis C: No unknown) (unknown) (no (unknown) (unknown) History of (units (unk nown) date) section unknown) (unknown) (no (unknown) (unknown) Hives (units (unkno wn) date) unknown) (unknown) (no (unknown) (unknown) [place]'s (units (u nknown) date) Chorea, Denies unknown) Other inherited genetic or chromosomal disorder, (unknown) (no (unknown) (unknown) Hx # (units (u nknown) date) Pregnancies 0 unknown) Elective abortions 0 (unknown) (no (unknown) (unknown) Hx # Term (units (unkn own) date) Pregnancies 2 unknown) Ectopic pregnancies 0 (unknown) (no (unknown) (unknown) Infection (units (unkn own) date) History unknown) (unknown) (no (unknown) (unknown) Intake Clinical (units (unknown) date) Staff unknown) (unknown) (no (unknown) (unknown) Intake performed (units (unknown) date) by: unknown) Denzel Garcia (unknown) (no (unknown) (unknown) Intake (units (unkno wn) date) unknown) (unknown) (no (unknown) (unknown) Live with (units (unkn own) date) someone with TB unknown) or exposed to TB: No (unknown) (no (unknown) (unknown) Loc: [facility] (units (unkno wn) date) unknown) (unknown) (no (unknown) (unknown) Marital status: (units (unknown) date) unmarried,living unknown) together (unknown) (no (unknown) (unknown) Medical History (units (unknown) date) (Updated 12/25/22 unknown) @ 15:38 by Janey Garcia RN) (unknown) (no (unknown) (unknown) Medications (units (un known) date) unknown) (unknown) (no (unknown) (unknown) No significant (units (unknown) date) past medical unknown) history (unknown) (no (unknown) (unknown) Number of Living (units (unknown) date) Children 2 unknown) (unknown) (no (unknown) (unknown) Nutrition and (units ( unknown) date) weight gain unknown) counseling: special diet: discussed (unknown) (no (unknown) (unknown) OB Office Visit (units (unknown) date) unknown) (unknown) (no (unknown) (unknown) On control (units (unknown) date) at conception?: unknown) No (unknown) (no (unknown) (unknown) PFSH (units (unkno wn) date) unknown) (unknown) (no (unknown) (unknown) Para 2 (units (unkno wn) date) Spontaneous unknown) abortions 0 (unknown) (no (unknown) (unknown) Partner history (units (unknown) date) of STD: denies hx unknown) (unknown) (no (unknown) (unknown) Partner history (units (unknown) date) of genital unknown) herpes: No (unknown) (no (unknown) (unknown) Partner: (units (unkno wn) date) Dieterer unknown) Jr. Chinedu (unknown) (no (unknown) (unknown) Past Pregnancies (units (unknown) date) unknown) (unknown) (no (unknown) (unknown) Patient's age 37 (units (unknown) date) years or older as unknown) of estimated date of delivery: No (unknown) (no (unknown) (unknown) Patient: (units (unkno wn) date) Ana Judge unknown) MR#: [id number] (unknown) (no (unknown) (unknown) Electrical Drafter: (units ( unknown) date) DOD unknown) (unknown) (no (unknown) (unknown) Personal history (units (unknown) date) of STD: HPV and unknown) denies hx (unknown) (no (unknown) (unknown) Personal history (units (unknown) date) of genital unknown) herpes: No (unknown) (no (unknown) (unknown) (units (unkn own) date) History unknown) (unknown) (no (unknown) (unknown) type:: (units (unknown) date) Other Normal unknown) (unknown) (no (unknown) (unknown) (units (unkno wn) date) Education unknown) (unknown) (no (unknown) (unknown) Initial (units (unknown) date) Assessment unknown) (unknown) (no (unknown) (unknown) (units (unkno wn) date) Testing: unknown) discussed (unknown) (no (unknown) (unknown) Visit (units (unknown) date) unknown) (unknown) (no (unknown) (unknown) Primary [facility] (units (u nknown) date) [facility] [place] [facility] (unknown) (no (unknown) (unknown) Primary Ob (units (unk nown) date) Provider: unknown) [facility] (unknown) (no (unknown) (unknown) Prior (units (unkno wn) date) GBS-Infected unknown) child: No (unknown) (no (unknown) (unknown) Providers (units (unkn own) date) unknown) (unknown) (no (unknown) (unknown) Rash or viral (units ( unknown) date) illness since unknown) last menstrual period: No (unknown) (no (unknown) (unknown) Rash (units (unkno wn) date) unknown) (unknown) (no (unknown) (unknown) Reason For Visit (units (unknown) date) unknown) (unknown) (no (unknown) (unknown) Recent travel (units ( unknown) date) outside of unknown) country?: No (unknown) (no (unknown) (unknown) Recurrent (units (unkn own) date) loss or unknown) a stillbirth: No (unknown) (no (unknown) (unknown) S/P (units (unkno wn) date) tonsillectomy unknown) (unknown) (no (unknown) (unknown) Safety (units (unkno wn) date) unknown) (unknown) (no (unknown) (unknown) Signed By: (units (unk nown) date) unknown) (unknown) (no (unknown) (unknown) Smoking Status: (units (unknown) date) Former smoker unknown) (quit in her early 20s) (unknown) (no (unknown) (unknown) Social History (units (unknown) date) unknown) (unknown) (no (unknown) (unknown) Surgical History (units (unknown) date) (Updated 12/29/22 unknown) @ 09:35 by Janey Garcia RN) (unknown) (no (unknown) (unknown) Symptoms since (units (unknown) date) LMP: Reports unknown) amenorrhea, nausea (very mild) and other (unknown) (no (unknown) (unknown) Teratogen (units (unkno wn) date) Exposures since unknown) LMP/Conception: Reports other (X-ray and anesthesia at (unknown) (no (unknown) (unknown) This note may (units ( unknown) date) have been all or unknown) partially generated using voice recognition (unknown) (no (unknown) (unknown) Tobacco + (units (unkn own) date) Substance Use unknown) (unknown) (no (unknown) (unknown) Tobacco Status (units (unknown) date) unknown) (unknown) (no (unknown) (unknown) Type(s) of (units (unk nown) date) 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, 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) (unknown) (no (unknown) (unknown) Unable 2/2 (units (unk nown) date) severe tongue tie unknown) none (unknown) (no (unknown) (unknown) Varicella/chicke (units (unknown) date) n pox status: unknown) immunized (only 1 dose) (unknown) (no (unknown) (unknown) Visit Reasons: (units (unknown) date) Telephone intake unknown) for [place] (unknown) (no (unknown) (unknown) WG (units (unkno wn) date) unknown) (unknown) (no (unknown) (unknown) Zika virus (units (unk nown) date) exposure: No unknown) (unknown) (no (unknown) (unknown) alcohol intake: (units (unknown) date) former (rarely unknown) when not ) (unknown) (no (unknown) (unknown) and stopping (units (u nknown) date) OCP) unknown) (unknown) (no (unknown) (unknown) anesthesia duty (units (unknown) date) while ) unknown) (unknown) (no (unknown) (unknown) anyone in either (units (unknown) date) family with: unknown) (unknown) (no (unknown) (unknown) baby's father (units ( unknown) date) had a child with unknown) defects not listed above and Denies Other (unknown) (no (unknown) (unknown) caffeine: Yes (units ( unknown) date) (aware of 200mg unknown) limit, trying to cut back) (unknown) (no (unknown) (unknown) carbon monox (units (u nknown) date) detector in home: unknown) Yes (unknown) (no (unknown) (unknown) caregiver/suppor (units (unknown) date) t person: Yes unknown) (unknown) (no (unknown) (unknown) current (units (unkno wn) date) occupational unknown) exposures/hazards : Yes (several, but off Xray and (unknown) (no (unknown) (unknown) daily servings (units (unknown) date) fruits/ve or unknown) more times/day (unknown) (no (unknown) (unknown) disorders, (units (unk nown) date) Denies Cystic unknown) Fibrosis, Denies Mental Retardation/Autis m, Denies (unknown) (no (unknown) (unknown) do you feel safe (units (unknown) date) at home: Yes unknown) (unknown) (no (unknown) (unknown) during the past (units (unknown) date) year weight has: unknown) decreased > 10 lbs (-20 lb, likely r/t stress (unknown) (no (unknown) (unknown) education level: (units (unknown) date) college (some unknown) college, working on associate's degree) (unknown) (no (unknown) (unknown) failure to (units (unk nown) date) progress Wilder unknown) (unknown) (no (unknown) (unknown) fire (units (unkno wn) date) extinguisher in unknown) home: Yes (unknown) (no (unknown) (unknown) firearms in (units (un known) date) home: No unknown) (unknown) (no (unknown) (unknown) have occurred. (units (unknown) date) If there are any unknown) questions, please contact the Medical Records (unknown) (no (unknown) (unknown) helmet use: No (units (unknown) date) (Counseled to do unknown) so) (unknown) (no (unknown) (unknown) household (units (unkn own) date) members: unknown) significant other and children (unknown) (no (unknown) (unknown) housing: house (units (unknown) date) unknown) (unknown) (no (unknown) (unknown) lavender (units (unkno wn) date) (Lavandula unknown) angustifolia) Allergy (Intermediate, Verified 12/29/22 (unknown) (no (unknown) (unknown) lives (units (unkno wn) date) independently: unknown) Yes (unknown) (no (unknown) (unknown) m Magdiel [place] (units ( unknown) date) unknown) (unknown) (no (unknown) (unknown) marital status: (units (unknown) date) unmarried,living unknown) together (unknown) (no (unknown) (unknown) may occur. 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) (unknown) (no (unknown) (unknown) (units (unk nown) date) infection unknown) (unknown) (no (unknown) (unknown) prenat.vits,tammy, (units (unknown) date) [id number] 1 unknown) tab PO DAILY 06/11/18 [History Confirmed (unknown) (no (unknown) (unknown) read the note (units ( unknown) date) carefully and unknown) recognize, using context, where these substitutions (unknown) (no (unknown) (unknown) seatbelt use: (units ( unknown) date) always unknown) (unknown) (no (unknown) (unknown) second hand (units (un known) date) exposure: Yes unknown) (s/o smokes, outside) (unknown) (no (unknown) (unknown) software. (units (unkn own) date) Although every unknown) effort is made to edit content, status controller errors (unknown) (no (unknown) (unknown) special teagan (units ( unknown) date) needs: No unknown) (unknown) (no (unknown) (unknown) substance use (units ( unknown) date) type: does not unknown) use (unknown) (no (unknown) (unknown) travel history: (units (unknown) date) recent (domestic unknown) only) (unknown) (no (unknown) (unknown) water heater (units (u nknown) date) temp set < 120 unknown) deg: Yes (unknown) (no (unknown) (unknown) well-balanced (units ( unknown) date) diet: daily or unknown) most days (unknown) (no (unknown) (unknown) work prior to (units ( unknown) date) knowing of unknown) ) (unknown) (no (unknown) (unknown) working smoke (units ( unknown) date) detector in home: unknown) Yes Result panel 8 (unknown) (no (unknown) (unknown) (no value) (units (unk nown) date) unknown) (unknown) (no (unknown) (unknown) (constipation, (units (unknown) date) gums bleeding w/ unknown) brushing) (unknown) (no (unknown) (unknown) Genetic (units (unkn own) date) Screening/Teratol unknown) ogy Counseling - Includes patient, baby's father, or (unknown) (no (unknown) (unknown) [id number] (units (unkno wn) date) unknown) (unknown) (no (unknown) (unknown) 12/29/22 (units (unkno wn) date) unknown) (unknown) (no (unknown) (unknown) 12/29/22] (units (unkn own) date) unknown) (unknown) (no (unknown) (unknown) 01/17/19 39 36 9 (units (unknown) date) lb 0.4 oz Male unknown) live - full ter (unknown) (no (unknown) (unknown) 09:32) (units (unkno wn) date) unknown) (unknown) (no (unknown) (unknown) 09/12/16 40.5 30 (units (unknown) date) 8 lb 14 oz Male unknown) live - full term (unknown) (no (unknown) (unknown) Abnormal lab (units (u nknown) date) values 1st unknown) trimester: discussed (unknown) (no (unknown) (unknown) Add'l Plan (units (unk nown) date) Details unknown) (unknown) (no (unknown) (unknown) Age/Sex: 32 / F (units (unknown) date) Date of Service: unknown) (unknown) (no (unknown) (unknown) Allergies (units (unkn own) date) unknown) (unknown) (no (unknown) (unknown) [place], [place] (units ( unknown) date) [id number] unknown) (unknown) (no (unknown) (unknown) Aneuploidy (units (unk nown) date) Screening unknown) Offered: Declined (unknown) (no (unknown) (unknown) Anticipated (units (un known) date) course of unknown) care: discussed (unknown) (no (unknown) (unknown) Assessment and (units (unknown) date) Plan unknown) (unknown) (no (unknown) (unknown) Attempted, poor (units (unknown) date) latch other Liamj unknown) (unknown) (no (unknown) (unknown) Attending Dr: (units ( unknown) date) [facility]cd[facility] unknown) (unknown) (no (unknown) (unknown) BMI Refused (units (un known) date) unknown) (unknown) (no (unknown) (unknown) BMI Screening: (units (unknown) date) Yes BMI within unknown) normal limits (unknown) (no (unknown) (unknown) (units (unkno wn) date) Plan/Preferences unknown) (unknown) (no (unknown) (unknown) Planning (units (unknown) date) unknown) (unknown) (no (unknown) (unknown) Bleach (Sodium (units (unknown) date) Hypochlorite) unknown) Adverse Reaction (Severe, Verified 12/29/22 09:32) (unknown) (no (unknown) (unknown) Breastfeed Preg (units (unknown) date) Comp Name unknown) (unknown) (no (unknown) (unknown) Current Estimate (units (unknown) date) 08/02/23 LMP unknown) (Uncertain) 9w 1d (unknown) (no (unknown) (unknown) Current (units (unkno wn) date) History unknown) (unknown) (no (unknown) (unknown) : 1990 (units (unknown) date) Acct:[id number] unknown) (unknown) (no (unknown) (unknown) Date of positive (units (unknown) date) home unknown) test: 12/17/22 (unknown) (no (unknown) (unknown) Del. Date (units (unkn own) date) GA/Weeks Labor unknown) Lgth Wt Sex Route Outcome Anesthesia Place (unknown) (no (unknown) (unknown) Delivery Date: (units (unknown) date) 09/12/16 Last unknown) Updated by: Janey Garcia RN (unknown) (no (unknown) (unknown) Delv (units (unkno wn) date) unknown) (unknown) (no (unknown) (unknown) Denies Congenital (units (unknown) date) Heart Defect, unknown) Denies Down Syndrome, Denies Muscular Dystrophy, (unknown) (no (unknown) (unknown) Denies Maternal (units (unknown) date) Metabolic unknown) Disorder (EG,TYPE 1 Diabetes, PKU), Denies Patient or (unknown) (no (unknown) (unknown) Denies Neural (units ( unknown) date) Tube Defect unknown) (Meningomyelocele , Spina Bifida, or Anencephaly), (unknown) (no (unknown) (unknown) Denies Sickle (units ( unknown) date) Cell Disease or unknown) Trait (), Denies Hemophilia or other blood (unknown) (no (unknown) (unknown) Denies Darius-Sachs (units (unknown) date) (Ashkenazi unknown) Jehovah'S Witness, Cajun, [place]ian Finnish), Denies Jacob (unknown) (no (unknown) (unknown) Depression: (units (un known) date) discussed unknown) (unknown) (no (unknown) (unknown) Dept at (units (unkno wn) date) . unknown) (unknown) (no (unknown) (unknown) Diet and (units (unkno wn) date) Exercise unknown) (unknown) (no (unknown) (unknown) Difficulty (units (unk nown) date) Breathing unknown) (unknown) (no (unknown) (unknown) Disease (units (unkno wn) date) (Ashkenazi unknown) Jehovah'S Witness), Denies Familial Dysautonomia (Ashkenazi Jehovah'S Witness), (unknown) (no (unknown) (unknown) Documented By: (units (unknown) date) Rose [facility] Mcdowell unknown) 12/29/22 0936 (unknown) (no (unknown) (unknown) Draft (units (unkno wn) date) unknown) (unknown) (no (unknown) (unknown) MARY BETH Calculator (units (unknown) date) unknown) (unknown) (no (unknown) (unknown) [facility] [place] (units (un known) date) unknown) (unknown) (no (unknown) (unknown) Estimated (units (unkn own) date) Delivery Date unknown) Method Current (unknown) (no (unknown) (unknown) Exercise and (units (u nknown) date) activity, unknown) work/environmenta l/hazards, Sexual activity, X-ray (unknown) (no (unknown) (unknown) Family History (units (unknown) date) (Updated 12/29/22 unknown) @ 09:36 by Janey Garcia RN) (unknown) (no (unknown) (unknown) Father of Baby: (units (unknown) date) same unknown) (unknown) (no (unknown) (unknown) [facility] unknown) (unknown) (no (unknown) (unknown) First Trimester (units (unknown) date) Education unknown) Checklist (unknown) (no (unknown) (unknown) Genetic (units (unkno wn) date) Screening + unknown) Counseling (unknown) (no (unknown) (unknown) Genetic (units (unkno wn) date) Screening unknown) (unknown) (no (unknown) (unknown) Grandmother Lung (units (unknown) date) cancer unknown) (unknown) (no (unknown) (unknown) 3 (units (unkn own) date) Multiple births 0 unknown) (unknown) (no (unknown) (unknown) H/O knee surgery (units (unknown) date) unknown) (unknown) (no (unknown) (unknown) HIV risk (units (unkno wn) date) evaluation: low unknown) risk (unknown) (no (unknown) (unknown) [facility] (units ( unknown) date) Education unknown) (unknown) (no (unknown) (unknown) Health center (units ( unknown) date) information: unknown) nature of practice discussed, personnel (unknown) (no (unknown) (unknown) Hepatitis C risk (units (unknown) date) evaluation: low unknown) risk (unknown) (no (unknown) (unknown) History of (units (unk nown) date) Hepatitis B: No unknown) (unknown) (no (unknown) (unknown) History of (units (unk nown) date) Hepatitis C: No unknown) (unknown) (no (unknown) (unknown) History of (units (unk nown) date) section unknown) (unknown) (no (unknown) (unknown) Hives (units (unkno wn) date) unknown) (unknown) (no (unknown) (unknown) [place]'s (units (u nknown) date) Chorea, Denies unknown) Other inherited genetic or chromosomal disorder, (unknown) (no (unknown) (unknown) Hx # (units (u nknown) date) Pregnancies 0 unknown) Elective abortions 0 (unknown) (no (unknown) (unknown) Hx # Term (units (unkn own) date) Pregnancies 2 unknown) Ectopic pregnancies 0 (unknown) (no (unknown) (unknown) Infection (units (unkn own) date) History unknown) (unknown) (no (unknown) (unknown) Intake Clinical (units (unknown) date) Staff unknown) (unknown) (no (unknown) (unknown) Intake performed (units (unknown) date) by: unknown) Denzel Garcia (unknown) (no (unknown) (unknown) Intake (units (unkno wn) date) unknown) (unknown) (no (unknown) (unknown) Live with (units (unkn own) date) someone with TB unknown) or exposed to TB: No (unknown) (no (unknown) (unknown) Loc: [facility] (units (unkno wn) date) unknown) (unknown) (no (unknown) (unknown) Marital status: (units (unknown) date) unmarried,living unknown) together (unknown) (no (unknown) (unknown) Medical History (units (unknown) date) (Updated 12/25/22 unknown) @ 15:38 by Janey Garcia RN) (unknown) (no (unknown) (unknown) Medications (units (un known) date) unknown) (unknown) (no (unknown) (unknown) No significant (units (unknown) date) past medical unknown) history (unknown) (no (unknown) (unknown) Number of Living (units (unknown) date) Children 2 unknown) (unknown) (no (unknown) (unknown) Nutrition and (units ( unknown) date) weight gain unknown) counseling: special diet: discussed (unknown) (no (unknown) (unknown) OB Office Visit (units (unknown) date) unknown) (unknown) (no (unknown) (unknown) On control (units (unknown) date) at conception?: unknown) No (unknown) (no (unknown) (unknown) PFSH (units (unkno wn) date) unknown) (unknown) (no (unknown) (unknown) Para 2 (units (unkno wn) date) Spontaneous unknown) abortions 0 (unknown) (no (unknown) (unknown) Partner history (units (unknown) date) of STD: denies hx unknown) (unknown) (no (unknown) (unknown) Partner history (units (unknown) date) of genital unknown) herpes: No (unknown) (no (unknown) (unknown) Partner: (units (unkno wn) date) Ruddy unknown) Jr. Chinedu (unknown) (no (unknown) (unknown) Past Pregnancies (units (unknown) date) unknown) (unknown) (no (unknown) (unknown) Patient's age 37 (units (unknown) date) years or older as unknown) of estimated date of delivery: No (unknown) (no (unknown) (unknown) Patient: (units (unkno wn) date) Ana Judge D unknown) MR#: [id number] (unknown) (no (unknown) (unknown) Electrical Drafter: (units ( unknown) date) DOD unknown) (unknown) (no (unknown) (unknown) Personal history (units (unknown) date) of STD: HPV and unknown) denies hx (unknown) (no (unknown) (unknown) Personal history (units (unknown) date) of genital unknown) herpes: No (unknown) (no (unknown) (unknown) (units (unkn own) date) History unknown) (unknown) (no (unknown) (unknown) type:: (units (unknown) date) Other Normal unknown) (unknown) (no (unknown) (unknown) (units (unkno wn) date) Education unknown) (unknown) (no (unknown) (unknown) Initial (units (unknown) date) Assessment unknown) (unknown) (no (unknown) (unknown) (units (unkno wn) date) Testing: unknown) discussed (unknown) (no (unknown) (unknown) Visit (units (unknown) date) unknown) (unknown) (no (unknown) (unknown) (units (unkno wn) date) education packet: unknown) Child education/plan, symptoms, (unknown) (no (unknown) (unknown) [facility] (units (u nknown) date) [facility] (unknown) (no (unknown) (unknown) Primary Ob (units (unk nown) date) Provider: unknown) [facility] (unknown) (no (unknown) (unknown) Prior (units (unkno wn) date) GBS-Infected unknown) child: No (unknown) (no (unknown) (unknown) Providers (units (unkn own) date) unknown) (unknown) (no (unknown) (unknown) Rash or viral (units ( unknown) date) illness since unknown) last menstrual period: No (unknown) (no (unknown) (unknown) Rash (units (unkno wn) date) unknown) (unknown) (no (unknown) (unknown) Reason For Visit (units (unknown) date) unknown) (unknown) (no (unknown) (unknown) Recent travel (units ( unknown) date) outside of unknown) country?: No (unknown) (no (unknown) (unknown) Recurrent (units (unkn own) date) loss or unknown) a stillbirth: No (unknown) (no (unknown) (unknown) S/P (units (unkno wn) date) tonsillectomy unknown) (unknown) (no (unknown) (unknown) Safety (units (unkno wn) date) unknown) (unknown) (no (unknown) (unknown) Signed By: (units (unk nown) date) unknown) (unknown) (no (unknown) (unknown) Smoking Status: (units (unknown) date) Former smoker unknown) (quit in her early 20s) (unknown) (no (unknown) (unknown) Social History (units (unknown) date) unknown) (unknown) (no (unknown) (unknown) Surgical History (units (unknown) date) (Updated 12/29/22 unknown) @ 09:35 by Janey Garcia RN) (unknown) (no (unknown) (unknown) Symptoms since (units (unknown) date) LMP: Reports unknown) amenorrhea, nausea (very mild) and other (unknown) (no (unknown) (unknown) Teratogen (units (unkno wn) date) Exposures since unknown) LMP/Conception: Reports other (X-ray and anesthesia at (unknown) (no (unknown) (unknown) This note may (units ( unknown) date) have been all or unknown) partially generated using voice recognition (unknown) (no (unknown) (unknown) Tobacco + (units (unkn own) date) Substance Use unknown) (unknown) (no (unknown) (unknown) Tobacco Status (units (unknown) date) unknown) (unknown) (no (unknown) (unknown) Type(s) of (units (unk nown) date) 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, 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) (unknown) (no (unknown) (unknown) Unable 2/2 (units (unk n) date) severe tongue tie unknown) none (unknown) (no (unknown) (unknown) Varicella/chicke (units (unknown) date) n pox status: unknown) immunized (only 1 dose) (unknown) (no (unknown) (unknown) Visit Reasons: (units (unknown) date) Telephone intake unknown) for Garde (unknown) (no (unknown) (unknown) Vitamins and (units (u nknown) date) iron, Diet and unknown) weight gain, Fish and mercury intake, Caffeine use, (unknown) (no (unknown) (unknown) WG (units (unkno wn) date) unknown) (unknown) (no (unknown) (unknown) Zika virus (units (unn) date) exposure: No unknown) (unknown) (no (unknown) (unknown) alcohol intake: (units (unknown) date) former (rarely unknown) when not ) (unknown) (no (unknown) (unknown) and stopping (units (u nknown) date) OCP) unknown) (unknown) (no (unknown) (unknown) anesthesia duty (units (unknown) date) while ) unknown) (unknown) (no (unknown) (unknown) anyone in either (units (unknown) date) family with: unknown) (unknown) (no (unknown) (unknown) baby's father (units ( unknown) date) had a child with unknown) defects not listed above and Denies Other (unknown) (no (unknown) (unknown) caffeine: Yes (units ( unknown) date) (aware of 200mg unknown) limit, trying to cut back) (unknown) (no (unknown) (unknown) carbon monox (units (u nknown) date) detector in home: unknown) Yes (unknown) (no (unknown) (unknown) caregiver/suppor (units (unknown) date) t person: Yes unknown) (unknown) (no (unknown) (unknown) counseling (units (unk nown) date) unknown) (unknown) (no (unknown) (unknown) current (units (unkno wn) date) occupational unknown) exposures/hazards : Yes (several, but off Xray and (unknown) (no (unknown) (unknown) daily servings (units (unknown) date) fruits/ve or unknown) more times/day (unknown) (no (unknown) (unknown) described, visit (units (unknown) date) schedule unknown) reviewed, ultrasounds policy reviewed, coverage 24 (unknown) (no (unknown) (unknown) disorders, (units (unk nown) date) Denies Cystic unknown) Fibrosis, Denies Mental Retardation/Autis m, Denies (unknown) (no (unknown) (unknown) do you feel safe (units (unknown) date) at home: Yes unknown) (unknown) (no (unknown) (unknown) during the past (units (unknown) date) year weight has: unknown) decreased > 10 lbs (-20 lb, likely r/t stress (unknown) (no (unknown) (unknown) education level: (units (unknown) date) college (some unknown) college, working on associate's degree) (unknown) (no (unknown) (unknown) exposure, (units (unkn own) date) Medication use, unknown) Sauna/hot tub use and Dental care (unknown) (no (unknown) (unknown) failure to (units (unk nown) date) progress Wilder unknown) (unknown) (no (unknown) (unknown) fire (units (unkno wn) date) extinguisher in unknown) home: Yes (unknown) (no (unknown) (unknown) firearms in (units (un known) date) home: No unknown) (unknown) (no (unknown) (unknown) have occurred. (units (unknown) date) If there are any unknown) questions, please contact the Medical Records (unknown) (no (unknown) (unknown) helmet use: No (units (unknown) date) (Counseled to do unknown) so) (unknown) (no (unknown) (unknown) hours a day, (units (un known) date) participation of unknown) father in care and office visits and (unknown) (no (unknown) (unknown) household (units (unkn own) date) members: unknown) significant other and children (unknown) (no (unknown) (unknown) housing: house (units (unknown) date) unknown) (unknown) (no (unknown) (unknown) lavender (units (unkno wn) date) (Lavandula unknown) angustifolia) Allergy (Intermediate, Verified 12/29/22 (unknown) (no (unknown) (unknown) lives (units (unkno wn) date) independently: unknown) Yes (unknown) (no (unknown) (unknown) m Magdiel [place] (units ( unknown) date) unknown) (unknown) (no (unknown) (unknown) marital status: (units (unknown) date) unmarried,living unknown) together (unknown) (no (unknown) (unknown) may occur. 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) (unknown) (no (unknown) (unknown) (units (unk nown) date) infection unknown) (unknown) (no (unknown) (unknown) prenat.vits,tammy, (units (unknown) date) [id number] 1 unknown) tab PO DAILY 06/11/18 [History Confirmed (unknown) (no (unknown) (unknown) read the note (units ( unknown) date) carefully and unknown) recognize, using context, where these substitutions (unknown) (no (unknown) (unknown) seatbelt use: (units ( unknown) date) always unknown) (unknown) (no (unknown) (unknown) second hand (units (un known) date) exposure: Yes unknown) (s/o smokes, outside) (unknown) (no (unknown) (unknown) software. (units (unkn own) date) Although every unknown) effort is made to edit content, status controller errors (unknown) (no (unknown) (unknown) special teagan (units ( unknown) date) needs: No unknown) (unknown) (no (unknown) (unknown) substance use (units ( unknown) date) type: does not unknown) use (unknown) (no (unknown) (unknown) travel history: (units (unknown) date) recent (domestic unknown) only) (unknown) (no (unknown) (unknown) water heater (units (u nknown) date) temp set < 120 unknown) deg: Yes (unknown) (no (unknown) (unknown) well-balanced (units ( unknown) date) diet: daily or unknown) most days (unknown) (no (unknown) (unknown) work prior to (units ( unknown) date) knowing of unknown) ) (unknown) (no (unknown) (unknown) working smoke (units ( unknown) date) detector in home: unknown) Yes Result panel 9 (unknown) (no (unknown) (unknown) (no value) (units (unk nown) date) unknown) (unknown) (no (unknown) (unknown) (constipation, (units (unknown) date) gums bleeding w/ unknown) brushing) (unknown) (no (unknown) (unknown) Genetic (units (unkn own) date) Screening/Teratol unknown) ogy Counseling - Includes patient, baby's father, or (unknown) (no (unknown) (unknown) [id number] (units (unkno wn) date) unknown) (unknown) (no (unknown) (unknown) 12/29/22 (units (unkno wn) date) unknown) (unknown) (no (unknown) (unknown) 12/29/22] (units (unkn own) date) unknown) (unknown) (no (unknown) (unknown) 01/17/19 39 36 9 (units (unknown) date) lb 0.4 oz Male unknown) live - full ter (unknown) (no (unknown) (unknown) 09:32) (units (unkno wn) date) unknown) (unknown) (no (unknown) (unknown) 09/12/16 40.5 30 (units (unknown) date) 8 lb 14 oz Male unknown) live - full term (unknown) (no (unknown) (unknown) Abnormal lab (units (u nknown) date) values 1st unknown) trimester: discussed (unknown) (no (unknown) (unknown) Add'l Plan (units (unk nown) date) Details unknown) (unknown) (no (unknown) (unknown) Age/Sex: 32 / F (units (unknown) date) Date of Service: unknown) (unknown) (no (unknown) (unknown) Allergies (units (unkn own) date) unknown) (unknown) (no (unknown) (unknown) [place], [place] (units ( unknown) date) [id number] unknown) (unknown) (no (unknown) (unknown) Aneuploidy (units (unk nown) date) Screening unknown) Offered: Declined (unknown) (no (unknown) (unknown) Anticipated (units (un known) date) course of unknown) care: discussed (unknown) (no (unknown) (unknown) Assessment and (units (unknown) date) Plan unknown) (unknown) (no (unknown) (unknown) Attempted, poor (units (unknown) date) latch other Liamj unknown) (unknown) (no (unknown) (unknown) Attending Dr: (units ( unknown) date) Rose Mary Mcdowell unknown) (unknown) (no (unknown) (unknown) BMI Refused (units (un known) date) unknown) (unknown) (no (unknown) (unknown) BMI Screening: (units (unknown) date) Yes BMI within unknown) normal limits (unknown) (no (unknown) (unknown) (units (unkno wn) date) Plan/Preferences unknown) (unknown) (no (unknown) (unknown) Planning (units (unknown) date) unknown) (unknown) (no (unknown) (unknown) Bleach (Sodium (units (unknown) date) Hypochlorite) unknown) Adverse Reaction (Severe, Verified 12/29/22 09:32) (unknown) (no (unknown) (unknown) Breastfeed Preg (units (unknown) date) Comp Name unknown) (unknown) (no (unknown) (unknown) Current Estimate (units (unknown) date) 08/02/23 LMP unknown) (Uncertain) 9w 1d (unknown) (no (unknown) (unknown) Current (units (unkno wn) date) History unknown) (unknown) (no (unknown) (unknown) : 1990 (units (unknown) date) Acct:[id number] unknown) (unknown) (no (unknown) (unknown) Date of positive (units (unknown) date) home unknown) test: 12/17/22 (unknown) (no (unknown) (unknown) Del. Date (units (unkn own) date) GA/Weeks Labor unknown) Lgth Wt Sex Route Outcome Anesthesia Place (unknown) (no (unknown) (unknown) Delivery Date: (units (unknown) date) 09/12/16 Last unknown) Updated by: Janey Garcia RN (unknown) (no (unknown) (unknown) Delv (units (unkno wn) date) unknown) (unknown) (no (unknown) (unknown) Denies Congenital (units (unknown) date) Heart Defect, unknown) Denies Down Syndrome, Denies Muscular Dystrophy, (unknown) (no (unknown) (unknown) Denies Maternal (units (unknown) date) Metabolic unknown) Disorder (EG,TYPE 1 Diabetes, PKU), Denies Patient or (unknown) (no (unknown) (unknown) Denies Neural (units ( unknown) date) Tube Defect unknown) (Meningomyelocele , Spina Bifida, or Anencephaly), (unknown) (no (unknown) (unknown) Denies Sickle (units ( unknown) date) Cell Disease or unknown) Trait (), Denies Hemophilia or other blood (unknown) (no (unknown) (unknown) Denies Darius-Sachs (units (unknown) date) (Ashkenazi unknown) Jehovah'S Witness, Cajun, Mal[place]ian Finnish), Denies Jacob (unknown) (no (unknown) (unknown) Depression: (units (un known) date) discussed unknown) (unknown) (no (unknown) (unknown) Dept at (units (unkno wn) date) . unknown) (unknown) (no (unknown) (unknown) Diet and (units (unkno wn) date) Exercise unknown) (unknown) (no (unknown) (unknown) Difficulty (units (unk nown) date) Breathing unknown) (unknown) (no (unknown) (unknown) Disease (units (unkno wn) date) (Ashkenazi unknown) Jehovah'S Witness), Denies Familial Dysautonomia (Ashkenazi Jehovah'S Witness), (unknown) (no (unknown) (unknown) Documented By: (units (unknown) date) Rose Mary Mcdowell unknownChristoph DICKERSON 12/29/22 0936 (unknown) (no (unknown) (unknown) Draft (units (unkno wn) date) unknown) (unknown) (no (unknown) (unknown) MARY BETH Calculator (units (unknown) date) unknown) (unknown) (no (unknown) (unknown) [place] (units (un known) date) unknown) (unknown) (no (unknown) (unknown) Estimated (units (unkn own) date) Delivery Date unknown) Method Current (unknown) (no (unknown) (unknown) Exercise and (units (u nknown) date) activity, unknown) work/environmenta l/hazards, Sexual activity, X-ray (unknown) (no (unknown) (unknown) Family History (units (unknown) date) (Updated 12/29/22 unknown) @ 09:36 by Janey Garcia RN) (unknown) (no (unknown) (unknown) Father of Baby: (units (unknown) date) same unknown) (unknown) (no (unknown) (unknown) [facility] ([facility] unknown) (unknown) (no (unknown) (unknown) First Trimester (units (unknown) date) Education unknown) Checklist (unknown) (no (unknown) (unknown) Genetic (units (unkno wn) date) Screening + unknown) Counseling (unknown) (no (unknown) (unknown) Genetic (units (unkno wn) date) Screening unknown) (unknown) (no (unknown) (unknown) Grandmother Lung (units (unknown) date) cancer unknown) (unknown) (no (unknown) (unknown) 3 (units (unkn own) date) Multiple births 0 unknown) (unknown) (no (unknown) (unknown) H/O knee surgery (units (unknown) date) unknown) (unknown) (no (unknown) (unknown) HIV risk (units (unkno wn) date) evaluation: low unknown) risk (unknown) (no (unknown) (unknown) Health Center (units ( unknown) date) Education unknown) (unknown) (no (unknown) (unknown) Health center (units ( unknown) date) information: unknown) nature of practice discussed, personnel (unknown) (no (unknown) (unknown) Hepatitis C risk (units (unknown) date) evaluation: low unknown) risk (unknown) (no (unknown) (unknown) History of (units (unk nown) date) Hepatitis B: No unknown) (unknown) (no (unknown) (unknown) History of (units (unk nown) date) Hepatitis C: No unknown) (unknown) (no (unknown) (unknown) History of (units (unk nown) date) section unknown) (unknown) (no (unknown) (unknown) Hives (units (unkno wn) date) unknown) (unknown) (no (unknown) (unknown) Flora's (units (u nknown) date) Chorea, Denies unknown) Other inherited genetic or chromosomal disorder, (unknown) (no (unknown) (unknown) Hx # (units (u nknown) date) Pregnancies 0 unknown) Elective abortions 0 (unknown) (no (unknown) (unknown) Hx # Term (units (unkn own) date) Pregnancies 2 unknown) Ectopic pregnancies 0 (unknown) (no (unknown) (unknown) Infection (units (unkn own) date) History unknown) (unknown) (no (unknown) (unknown) Infectious (units (unk nown) date) Disease Education unknown) (unknown) (no (unknown) (unknown) Infectious (units (unk nown) date) disease exposure: unknown) chicken pox immunity discussed, hepatitis risk (unknown) (no (unknown) (unknown) Intake Clinical (units (unknown) date) Staff unknown) (unknown) (no (unknown) (unknown) Intake performed (units (unknown) date) by: unknown) Denzel Garcia (unknown) (no (unknown) (unknown) Intake (units (unkno wn) date) unknown) (unknown) (no (unknown) (unknown) Live with (units (unkn own) date) someone with TB unknown) or exposed to TB: No (unknown) (no (unknown) (unknown) Loc: [facility] (units (unkno wn) date) unknown) (unknown) (no (unknown) (unknown) Marital status: (units (unknown) date) unmarried,living unknown) together (unknown) (no (unknown) (unknown) Medical History (units (unknown) date) (Updated 12/25/22 unknown) @ 15:38 by Janey Garcia RN) (unknown) (no (unknown) (unknown) Medications (units (un known) date) unknown) (unknown) (no (unknown) (unknown) No significant (units (unknown) date) past medical unknown) history (unknown) (no (unknown) (unknown) Number of Living (units (unknown) date) Children 2 unknown) (unknown) (no (unknown) (unknown) Nutrition and (units ( unknown) date) weight gain unknown) counseling: special diet: discussed (unknown) (no (unknown) (unknown) OB Office Visit (units (unknown) date) unknown) (unknown) (no (unknown) (unknown) On control (units (unknown) date) at conception?: unknown) No (unknown) (no (unknown) (unknown) PFSH (units (unkno wn) date) unknown) (unknown) (no (unknown) (unknown) Para 2 (units (unkno wn) date) Spontaneous unknown) abortions 0 (unknown) (no (unknown) (unknown) Partner history (units (unknown) date) of STD: denies hx unknown) (unknown) (no (unknown) (unknown) Partner history (units (unknown) date) of genital unknown) herpes: No (unknown) (no (unknown) (unknown) Partner: (units (unkno wn) date) Dieterer unknown) Jr. Chinedu (unknown) (no (unknown) (unknown) Past Pregnancies (units (unknown) date) unknown) (unknown) (no (unknown) (unknown) Patient's age 37 (units (unknown) date) years or older as unknown) of estimated date of delivery: No (unknown) (no (unknown) (unknown) Patient: (units (unkno wn) date) Ana Judge unknown) MR#: [id number] (unknown) (no (unknown) (unknown) Electrical Drafter: (units ( unknown) date) DOD unknown) (unknown) (no (unknown) (unknown) Personal history (units (unknown) date) of STD: HPV and unknown) denies hx (unknown) (no (unknown) (unknown) Personal history (units (unknown) date) of genital unknown) herpes: No (unknown) (no (unknown) (unknown) (units (unkn own) date) History unknown) (unknown) (no (unknown) (unknown) type:: (units (unknown) date) Other Normal unknown) (unknown) (no (unknown) (unknown) (units (unkno wn) date) Education unknown) (unknown) (no (unknown) (unknown) Initial (units (unknown) date) Assessment unknown) (unknown) (no (unknown) (unknown) (units (unkno wn) date) Testing: unknown) discussed (unknown) (no (unknown) (unknown) Visit (units (unknown) date) unknown) (unknown) (no (unknown) (unknown) (units (unkno wn) date) education packet: unknown) Child education/plan, symptoms, (unknown) (no (unknown) (unknown) Primary [facility] (units (u nknown) date) [facility] [place] (unknown) (no (unknown) (unknown) Primary Ob (units (unk nown) date) Provider: unknown) Rose Mary Mcdowell (unknown) (no (unknown) (unknown) Prior (units (unkno wn) date) GBS-Infected unknown) child: No (unknown) (no (unknown) (unknown) Providers (units (unkn own) date) unknown) (unknown) (no (unknown) (unknown) Rash or viral (units ( unknown) date) illness since unknown) last menstrual period: No (unknown) (no (unknown) (unknown) Rash (units (unkno wn) date) unknown) (unknown) (no (unknown) (unknown) Reason For Visit (units (unknown) date) unknown) (unknown) (no (unknown) (unknown) Recent travel (units ( unknown) date) outside of unknown) country?: No (unknown) (no (unknown) (unknown) Recurrent (units (unkn own) date) loss or unknown) a stillbirth: No (unknown) (no (unknown) (unknown) S/P (units (unkno wn) date) tonsillectomy unknown) (unknown) (no (unknown) (unknown) Safety (units (unkno wn) date) unknown) (unknown) (no (unknown) (unknown) Signed By: (units (unk nown) date) unknown) (unknown) (no (unknown) (unknown) Smoking Status: (units (unknown) date) Former smoker unknown) (quit in her early 20s) (unknown) (no (unknown) (unknown) Social History (units (unknown) date) unknown) (unknown) (no (unknown) (unknown) Surgical History (units (unknown) date) (Updated 12/29/22 unknown) @ 09:35 by Janey Garcia RN) (unknown) (no (unknown) (unknown) Symptoms since (units (unknown) date) LMP: Reports unknown) amenorrhea, nausea (very mild) and other (unknown) (no (unknown) (unknown) Teratogen (units (unkno wn) date) Exposures since unknown) LMP/Conception: Reports other (X-ray and anesthesia at (unknown) (no (unknown) (unknown) Testing (units (unkno wn) date) Education unknown) (unknown) (no (unknown) (unknown) Testing (units (unkno wn) date) education unknown) completed: group B strep and Spina bifida testing (unknown) (no (unknown) (unknown) This note may (units ( unknown) date) have been all or unknown) partially generated using voice recognition (unknown) (no (unknown) (unknown) Tobacco + (units (unkn own) date) Substance Use unknown) (unknown) (no (unknown) (unknown) Tobacco Status (units (unknown) date) unknown) (unknown) (no (unknown) (unknown) Type(s) of (units (unk nown) date) 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, 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) (unknown) (no (unknown) (unknown) Unable 2/2 (units (unk nown) date) severe tongue tie unknown) none (unknown) (no (unknown) (unknown) Varicella/chicke (units (unknown) date) n pox status: unknown) immunized (only 1 dose) (unknown) (no (unknown) (unknown) Visit Reasons: (units (unknown) date) Telephone intake unknown) for Garde (unknown) (no (unknown) (unknown) Vitamins and (units (u nknown) date) iron, Diet and unknown) weight gain, Fish and mercury intake, Caffeine use, (unknown) (no (unknown) (unknown) WG (units (unkno wn) date) unknown) (unknown) (no (unknown) (unknown) Zika virus (units (unk nown) date) exposure: No unknown) (unknown) (no (unknown) (unknown) alcohol intake: (units (unknown) date) former (rarely unknown) when not ) (unknown) (no (unknown) (unknown) and Influenza (units ( unknown) date) vaccine (will get unknown) flu shot, has had Covid x2) (unknown) (no (unknown) (unknown) and stopping (units (u nknown) date) OCP) unknown) (unknown) (no (unknown) (unknown) anesthesia duty (units (unknown) date) while ) unknown) (unknown) (no (unknown) (unknown) anyone in either (units (unknown) date) family with: unknown) (unknown) (no (unknown) (unknown) baby's father (units ( unknown) date) had a child with unknown) defects not listed above and Denies Other (unknown) (no (unknown) (unknown) caffeine: Yes (units ( unknown) date) (aware of 200mg unknown) limit, trying to cut back) (unknown) (no (unknown) (unknown) carbon monox (units (u nknown) date) detector in home: unknown) Yes (unknown) (no (unknown) (unknown) caregiver/suppor (units (unknown) date) t person: Yes unknown) (unknown) (no (unknown) (unknown) counseling (units (unk nown) date) unknown) (unknown) (no (unknown) (unknown) current (units (unkno wn) date) occupational unknown) exposures/hazards : Yes (several, but off Xray and (unknown) (no (unknown) (unknown) daily servings (units (unknown) date) fruits/ve or unknown) more times/day (unknown) (no (unknown) (unknown) described, visit (units (unknown) date) schedule unknown) reviewed, ultrasounds policy reviewed, coverage 24 (unknown) (no (unknown) (unknown) discussed, (units (unk n) date) tuberculosis unknown) exposure discussed, CMV discussed, Toxoplasmosis (unknown) (no (unknown) (unknown) disorders, (units (unk nown) date) Denies Cystic unknown) Fibrosis, Denies Mental Retardation/Autis m, Denies (unknown) (no (unknown) (unknown) do you feel safe (units (unknown) date) at home: Yes unknown) (unknown) (no (unknown) (unknown) during the past (units (unknown) date) year weight has: unknown) decreased > 10 lbs (-20 lb, likely r/t stress (unknown) (no (unknown) (unknown) education level: (units (unknown) date) college (some unknown) college, working on associate's degree) (unknown) (no (unknown) (unknown) exposure, (units (unkn own) date) Medication use, unknown) Sauna/hot tub use, Dental care, Travel, Seatbelt use (unknown) (no (unknown) (unknown) failure to (units (unk nown) date) progress Wilder unknown) (unknown) (no (unknown) (unknown) fire (units (unkno wn) date) extinguisher in unknown) home: Yes (unknown) (no (unknown) (unknown) firearms in (units (un known) date) home: No unknown) (unknown) (no (unknown) (unknown) have occurred. (units (unknown) date) If there are any unknown) questions, please contact the Medical Records (unknown) (no (unknown) (unknown) helmet use: No (units (unknown) date) (Counseled to do unknown) so) (unknown) (no (unknown) (unknown) hours a day, (units (un known) date) participation of unknown) father in care and office visits and (unknown) (no (unknown) (unknown) household (units (unkn own) date) members: unknown) significant other and children (unknown) (no (unknown) (unknown) housing: house (units (unknown) date) unknown) (unknown) (no (unknown) (unknown) lavender (units (unkno wn) date) (Lavandula unknown) angustifolia) Allergy (Intermediate, Verified 12/29/22 (unknown) (no (unknown) (unknown) lives (units (unkno wn) date) independently: unknown) Yes (unknown) (no (unknown) (unknown) m Magdiel [place] (units ( unknown) date) unknown) (unknown) (no (unknown) (unknown) marital status: (units (unknown) date) unmarried,living unknown) together (unknown) (no (unknown) (unknown) may occur. 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) (unknown) (no (unknown) (unknown) (units (unk nown) date) infection unknown) (unknown) (no (unknown) (unknown) precautions, (units (u nknown) date) Listeriosis unknown) prevention and Rubella Immunization (unknown) (no (unknown) (unknown) prenat.vits,tammy, (units (unknown) date) [id number] 1 unknown) tab PO DAILY 06/11/18 [History Confirmed (unknown) (no (unknown) (unknown) read the note (units ( unknown) date) carefully and unknown) recognize, using context, where these substitutions (unknown) (no (unknown) (unknown) seatbelt use: (units ( unknown) date) always unknown) (unknown) (no (unknown) (unknown) second hand (units (un known) date) exposure: Yes unknown) (s/o smokes, outside) (unknown) (no (unknown) (unknown) software. (units (unkn own) date) Although every unknown) effort is made to edit content, status controller errors (unknown) (no (unknown) (unknown) special teagan (units ( unknown) date) needs: No unknown) (unknown) (no (unknown) (unknown) substance use (units ( unknown) date) type: does not unknown) use (unknown) (no (unknown) (unknown) travel history: (units (unknown) date) recent (domestic unknown) only) (unknown) (no (unknown) (unknown) water heater (units (u nknown) date) temp set < 120 unknown) deg: Yes (unknown) (no (unknown) (unknown) well-balanced (units ( unknown) date) diet: daily or unknown) most days (unknown) (no (unknown) (unknown) work prior to (units ( unknown) date) knowing of unknown) ) (unknown) (no (unknown) (unknown) working smoke (units ( unknown) date) detector in home: unknown) Yes Result panel 10 (unknown) (no (unknown) (unknown) (no value) (units (unk nown) date) unknown) (unknown) (no (unknown) (unknown) (constipation, (units (unknown) date) gums bleeding w/ unknown) brushing) (unknown) (no (unknown) (unknown) Genetic (units (unkn own) date) Screening/Teratol unknown) ogy Counseling - Includes patient, baby's father, or (unknown) (no (unknown) (unknown) [id number] (units (unkno wn) date) unknown) (unknown) (no (unknown) (unknown) 12/29/22 (units (unkno wn) date) unknown) (unknown) (no (unknown) (unknown) 12/29/22] (units (unkn own) date) unknown) (unknown) (no (unknown) (unknown) 01/17/19 39 36 9 (units (unknown) date) lb 0.4 oz Male unknown) live - full ter (unknown) (no (unknown) (unknown) 09:32) (units (unkno wn) date) unknown) (unknown) (no (unknown) (unknown) 09/12/16 40.5 30 (units (unknown) date) 8 lb 14 oz Male unknown) live - full term (unknown) (no (unknown) (unknown) Abnormal lab (units (u nknown) date) values 1st unknown) trimester: discussed (unknown) (no (unknown) (unknown) Add'l Plan (units (unk nown) date) Details unknown) (unknown) (no (unknown) (unknown) Age/Sex: 32 / F (units (unknown) date) Date of Service: unknown) (unknown) (no (unknown) (unknown) Allergies (units (unkn own) date) unknown) (unknown) (no (unknown) (unknown) [place], [place] (units ( unknown) date) [id number] unknown) (unknown) (no (unknown) (unknown) Aneuploidy (units (unk nown) date) Screening unknown) Offered: Declined (unknown) (no (unknown) (unknown) Anticipated (units (un known) date) course of unknown) care: discussed (unknown) (no (unknown) (unknown) Anxiety (units (unkno wn) date) unknown) (unknown) (no (unknown) (unknown) Assessment and (units (unknown) date) Plan unknown) (unknown) (no (unknown) (unknown) Attempted, poor (units (unknown) date) latch other Liamj unknown) (unknown) (no (unknown) (unknown) Attending Dr: (units ( unknown) date) Rose Mary Mcdowell unknown) (unknown) (no (unknown) (unknown) BMI Refused (units (un known) date) unknown) (unknown) (no (unknown) (unknown) BMI Screening: (units (unknown) date) Yes BMI within unknown) normal limits (unknown) (no (unknown) (unknown) (units (unkno wn) date) Plan/Preferences unknown) (unknown) (no (unknown) (unknown) Planning (units (unknown) date) unknown) (unknown) (no (unknown) (unknown) Bleach (Sodium (units (unknown) date) Hypochlorite) unknown) Adverse Reaction (Severe, Verified 12/29/22 09:32) (unknown) (no (unknown) (unknown) Blood (units (unkno wn) date) transfusions?: unknown) yes (Never had but would accept) (unknown) (no (unknown) (unknown) Breastfeed Preg (units (unknown) date) Comp Name unknown) (unknown) (no (unknown) (unknown) Current Estimate (units (unknown) date) 08/02/23 LMP unknown) (Uncertain) 9w 1d (unknown) (no (unknown) (unknown) Current (units (unkno wn) date) History unknown) (unknown) (no (unknown) (unknown) : 1990 (units (unknown) date) Acct:[id number] unknown) (unknown) (no (unknown) (unknown) Date of positive (units (unknown) date) home unknown) test: 12/17/22 (unknown) (no (unknown) (unknown) Del. Date (units (unkn own) date) GA/Weeks Labor unknown) Lgth Wt Sex Route Outcome Anesthesia Place (unknown) (no (unknown) (unknown) Delivery Date: (units (unknown) date) 09/12/16 Last unknown) Updated by: Janey Garcia RN (unknown) (no (unknown) (unknown) Delv (units (unkno wn) date) unknown) (unknown) (no (unknown) (unknown) Denies Congenital (units (unknown) date) Heart Defect, unknown) Denies Down Syndrome, Denies Muscular Dystrophy, (unknown) (no (unknown) (unknown) Denies Maternal (units (unknown) date) Metabolic unknown) Disorder (EG,TYPE 1 Diabetes, PKU), Denies Patient or (unknown) (no (unknown) (unknown) Denies Neural (units ( unknown) date) Tube Defect unknown) (Meningomyelocele , Spina Bifida, or Anencephaly), (unknown) (no (unknown) (unknown) Denies Sickle (units ( unknown) date) Cell Disease or unknown) Trait (), Denies Hemophilia or other blood (unknown) (no (unknown) (unknown) Denies Darius-Sachs (units (unknown) date) (Ashkenazi unknown) Jehovah'S Witness, Cajun, Mal[place]ian Finnish), Denies Jacob (unknown) (no (unknown) (unknown) Depression: (units (un known) date) discussed unknown) (unknown) (no (unknown) (unknown) Dept at (units (unkno wn) date) . unknown) (unknown) (no (unknown) (unknown) Diet and (units (unkno wn) date) Exercise unknown) (unknown) (no (unknown) (unknown) Difficulty (units (unk nown) date) Breathing unknown) (unknown) (no (unknown) (unknown) Disease (units (unkno wn) date) (Ashkenazi unknown) Jehovah'S Witness), Denies Familial Dysautonomia (Ashkenazi Jehovah'S Witness), (unknown) (no (unknown) (unknown) Documented By: (units (unknown) date) Rose Mary Mcdowell unknownChristoph DICKERSON 12/29/22 0936 (unknown) (no (unknown) (unknown) Draft (units (unkno wn) date) unknown) (unknown) (no (unknown) (unknown) MARY BETH Calculator (units (unknown) date) unknown) (unknown) (no (unknown) (unknown) [place] (units (un known) date) unknown) (unknown) (no (unknown) (unknown) Estimated (units (unkn own) date) Delivery Date unknown) Method Current (unknown) (no (unknown) (unknown) Exercise and (units (u nknown) date) activity, unknown) work/environmenta l/hazards, Sexual activity, X-ray (unknown) (no (unknown) (unknown) Family History (units (unknown) date) (Updated 12/29/22 unknown) @ 09:36 by Janey Garcia RN) (unknown) (no (unknown) (unknown) Father of Baby: (units (unknown) date) same unknown) (unknown) (no (unknown) (unknown) [facility] ([facility] unknown) (unknown) (no (unknown) (unknown) First Trimester (units (unknown) date) Education unknown) Checklist (unknown) (no (unknown) (unknown) Genetic (units (unkno wn) date) Screening + unknown) Counseling (unknown) (no (unknown) (unknown) Genetic (units (unkno wn) date) Screening unknown) (unknown) (no (unknown) (unknown) Grandmother Lung (units (unknown) date) cancer unknown) (unknown) (no (unknown) (unknown) 3 (units (unkn own) date) Multiple births 0 unknown) (unknown) (no (unknown) (unknown) H/O knee surgery (units (unknown) date) unknown) (unknown) (no (unknown) (unknown) HIV risk (units (unkno wn) date) evaluation: low unknown) risk (unknown) (no (unknown) (unknown) Health Center (units ( unknown) date) Education unknown) (unknown) (no (unknown) (unknown) Health center (units ( unknown) date) information: unknown) nature of practice discussed, personnel (unknown) (no (unknown) (unknown) Hepatitis C risk (units (unknown) date) evaluation: low unknown) risk (unknown) (no (unknown) (unknown) History of (units (unk nown) date) Hepatitis B: No unknown) (unknown) (no (unknown) (unknown) History of (units (unk nown) date) Hepatitis C: No unknown) (unknown) (no (unknown) (unknown) History of (units (unk nown) date) section unknown) (unknown) (no (unknown) (unknown) Hives (units (unkno wn) date) unknown) (unknown) (no (unknown) (unknown) Hospital: (units (u nknown) date) unknown) (unknown) (no (unknown) (unknown) [facility] (units (u nknown) date) Chorea, Denies unknown) Other inherited genetic or chromosomal disorder, (unknown) (no (unknown) (unknown) Hx # (units (u nknown) date) Pregnancies 0 unknown) Elective abortions 0 (unknown) (no (unknown) (unknown) Hx # Term (units (unkn own) date) Pregnancies 2 unknown) Ectopic pregnancies 0 (unknown) (no (unknown) (unknown) will be (units (unknown) date) adopted?: no unknown) (unknown) (no (unknown) (unknown) Infection (units (unkn own) date) History unknown) (unknown) (no (unknown) (unknown) Infectious (units (unk nown) date) Disease Education unknown) (unknown) (no (unknown) (unknown) Infectious (units (unk nown) date) disease exposure: unknown) chicken pox immunity discussed, hepatitis risk (unknown) (no (unknown) (unknown) Intake Clinical (units (unknown) date) Staff unknown) (unknown) (no (unknown) (unknown) Intake performed (units (unknown) date) by: unknown) Denzel Garcia (unknown) (no (unknown) (unknown) Intake (units (unkno wn) date) unknown) (unknown) (no (unknown) (unknown) Live with (units (unkn own) date) someone with TB unknown) or exposed to TB: No (unknown) (no (unknown) (unknown) Loc: [facility] (units (unkno wn) date) unknown) (unknown) (no (unknown) (unknown) Marital status: (units (unknown) date) unmarried,living unknown) together (unknown) (no (unknown) (unknown) Medical History (units (unknown) date) (Updated 12/29/22 unknown) @ 10:45 by Janey Garcia RN) (unknown) (no (unknown) (unknown) Medications (units (un known) date) unknown) (unknown) (no (unknown) (unknown) Number of Living (units (unknown) date) Children 2 unknown) (unknown) (no (unknown) (unknown) Nutrition and (units ( unknown) date) weight gain unknown) counseling: special diet: discussed (unknown) (no (unknown) (unknown) OB Office Visit (units (unknown) date) unknown) (unknown) (no (unknown) (unknown) On control (units (unknown) date) at conception?: unknown) No (unknown) (no (unknown) (unknown) PFSH (units (unkno wn) date) unknown) (unknown) (no (unknown) (unknown) Para 2 (units (unkno wn) date) Spontaneous unknown) abortions 0 (unknown) (no (unknown) (unknown) Partner history (units (unknown) date) of STD: denies hx unknown) (unknown) (no (unknown) (unknown) Partner history (units (unknown) date) of genital unknown) herpes: No (unknown) (no (unknown) (unknown) Partner: (units (unkno wn) date) Ruddy unknown) Jr. Chinedu (unknown) (no (unknown) (unknown) Past Pregnancies (units (unknown) date) unknown) (unknown) (no (unknown) (unknown) Patient's age 37 (units (unknown) date) years or older as unknown) of estimated date of delivery: No (unknown) (no (unknown) (unknown) Patient: (units (unkno wn) date) Ana Judge unknown) MR#: [id number] (unknown) (no (unknown) (unknown) Electrical Drafter: (units ( unknown) date) DOD unknown) (unknown) (no (unknown) (unknown) Personal history (units (unknown) date) of STD: HPV and unknown) denies hx (unknown) (no (unknown) (unknown) Personal history (units (unknown) date) of genital unknown) herpes: No (unknown) (no (unknown) (unknown) (units (unk nown) date) hemorrhage unknown) (unknown) (no (unknown) (unknown) (units (unkn own) date) History unknown) (unknown) (no (unknown) (unknown) type:: (units (unknown) date) Other Normal unknown) (unknown) (no (unknown) (unknown) (units (unkno wn) date) Education unknown) (unknown) (no (unknown) (unknown) Initial (units (unknown) date) Assessment unknown) (unknown) (no (unknown) (unknown) (units (unkno wn) date) Testing: unknown) discussed (unknown) (no (unknown) (unknown) Visit (units (unknown) date) unknown) (unknown) (no (unknown) (unknown) (units (unkno wn) date) education packet: unknown) Child education/plan, symptoms, (unknown) (no (unknown) (unknown) Primary Care (units (u nknown) date) [facility] [place] (unknown) (no (unknown) (unknown) Primary Ob (units (unk nown) date) Provider: unknown) Rose Mary Mcdowell (unknown) (no (unknown) (unknown) Prior (units (unkno wn) date) GBS-Infected unknown) child: No (unknown) (no (unknown) (unknown) Providers (units (unkn own) date) unknown) (unknown) (no (unknown) (unknown) Rash or viral (units ( unknown) date) illness since unknown) last menstrual period: No (unknown) (no (unknown) (unknown) Rash (units (unkno wn) date) unknown) (unknown) (no (unknown) (unknown) Reason For Visit (units (unknown) date) unknown) (unknown) (no (unknown) (unknown) Recent travel (units ( unknown) date) outside of unknown) country?: No (unknown) (no (unknown) (unknown) Recurrent (units (unkn own) date) loss or unknown) a stillbirth: No (unknown) (no (unknown) (unknown) S/P (units (unkno wn) date) tonsillectomy unknown) (unknown) (no (unknown) (unknown) Safety (units (unkno wn) date) unknown) (unknown) (no (unknown) (unknown) Signed By: (units (unk nown) date) unknown) (unknown) (no (unknown) (unknown) Smoking Status: (units (unknown) date) Former smoker unknown) (quit in her early 20s) (unknown) (no (unknown) (unknown) Social History (units (unknown) date) unknown) (unknown) (no (unknown) (unknown) Support (units (unkno wn) date) Person(s):: unknown) Dieterer (unknown) (no (unknown) (unknown) Surgical History (units (unknown) date) (Updated 12/29/22 unknown) @ 09:35 by Janey Garcia RN) (unknown) (no (unknown) (unknown) Surrogate (units (unkn own) date) ?: no unknown) (unknown) (no (unknown) (unknown) Symptoms since (units (unknown) date) LMP: Reports unknown) amenorrhea, nausea (very mild) and other (unknown) (no (unknown) (unknown) Teratogen (units (unkno wn) date) Exposures since unknown) LMP/Conception: Reports other (X-ray and anesthesia at (unknown) (no (unknown) (unknown) Testing (units (unkno wn) date) Education unknown) (unknown) (no (unknown) (unknown) Testing (units (unkno wn) date) education unknown) completed: group B strep and Spina bifida testing (unknown) (no (unknown) (unknown) This note may (units ( unknown) date) have been all or unknown) partially generated using voice recognition (unknown) (no (unknown) (unknown) Tobacco + (units (unkn own) date) Substance Use unknown) (unknown) (no (unknown) (unknown) Tobacco Status (units (unknown) date) unknown) (unknown) (no (unknown) (unknown) Type(s) of (units (unk nown) date) 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, 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) (unknown) (no (unknown) (unknown) Unable 2/2 (units (unk nown) date) severe tongue tie unknown) none (unknown) (no (unknown) (unknown) Varicella/chicke (units (unknown) date) n pox status: unknown) immunized (only 1 dose) (unknown) (no (unknown) (unknown) Visit Reasons: (units (unknown) date) Telephone intake unknown) for [place] (unknown) (no (unknown) (unknown) Vitamins and (units (u nknown) date) iron, Diet and unknown) weight gain, Fish and mercury intake, Caffeine use, (unknown) (no (unknown) (unknown) WG (units (unkno wn) date) unknown) (unknown) (no (unknown) (unknown) Zika virus (units (unk nown) date) exposure: No unknown) (unknown) (no (unknown) (unknown) alcohol intake: (units (unknown) date) former (rarely unknown) when not ) (unknown) (no (unknown) (unknown) and Influenza (units ( unknown) date) vaccine (will get unknown) flu shot, has had Covid x2) (unknown) (no (unknown) (unknown) and stopping (units (u nknown) date) OCP) unknown) (unknown) (no (unknown) (unknown) anesthesia duty (units (unknown) date) while ) unknown) (unknown) (no (unknown) (unknown) anyone in either (units (unknown) date) family with: unknown) (unknown) (no (unknown) (unknown) baby's father (units ( unknown) date) had a child with unknown) defects not listed above and Denies Other (unknown) (no (unknown) (unknown) caffeine: Yes (units ( unknown) date) (aware of 200mg unknown) limit, trying to cut back) (unknown) (no (unknown) (unknown) carbon monox (units (u nknown) date) detector in home: unknown) Yes (unknown) (no (unknown) (unknown) caregiver/suppor (units (unknown) date) t person: Yes unknown) (unknown) (no (unknown) (unknown) counseling (units (unk nown) date) unknown) (unknown) (no (unknown) (unknown) current (units (unkno wn) date) occupational unknown) exposures/hazards : Yes (several, but off Xray and (unknown) (no (unknown) (unknown) daily servings (units (unknown) date) fruits/ve or unknown) more times/day (unknown) (no (unknown) (unknown) described, visit (units (unknown) date) schedule unknown) reviewed, ultrasounds policy reviewed, coverage 24 (unknown) (no (unknown) (unknown) discussed, (units (unk nown) date) tuberculosis unknown) exposure discussed, CMV discussed, Toxoplasmosis (unknown) (no (unknown) (unknown) disorders, (units (unk nown) date) Denies Cystic unknown) Fibrosis, Denies Mental Retardation/Autis m, Denies (unknown) (no (unknown) (unknown) do you feel safe (units (unknown) date) at home: Yes unknown) (unknown) (no (unknown) (unknown) during the past (units (unknown) date) year weight has: unknown) decreased > 10 lbs (-20 lb, likely r/t stress (unknown) (no (unknown) (unknown) education level: (units (unknown) date) college (some unknown) college, working on associate's degree) (unknown) (no (unknown) (unknown) exposure, (units (unkn own) date) Medication use, unknown) Sauna/hot tub use, Dental care, Travel, Seatbelt use (unknown) (no (unknown) (unknown) failure to (units (unk nown) date) progress Wilder unknown) (unknown) (no (unknown) (unknown) fire (units (unkno wn) date) extinguisher in unknown) home: Yes (unknown) (no (unknown) (unknown) firearms in (units (un known) date) home: No unknown) (unknown) (no (unknown) (unknown) have occurred. (units (unknown) date) If there are any unknown) questions, please contact the Medical Records (unknown) (no (unknown) (unknown) helmet use: No (units (unknown) date) (Counseled to do unknown) so) (unknown) (no (unknown) (unknown) hours a day, (units (un known) date) participation of unknown) father in care and office visits and (unknown) (no (unknown) (unknown) household (units (unkn own) date) members: unknown) significant other and children (unknown) (no (unknown) (unknown) housing: house (units (unknown) date) unknown) (unknown) (no (unknown) (unknown) lavender (units (unkno wn) date) (Lavandula unknown) angustifolia) Allergy (Intermediate, Verified 12/29/22 (unknown) (no (unknown) (unknown) lives (units (unkno wn) date) independently: unknown) Yes (unknown) (no (unknown) (unknown) m Magdiel [place] (units ( unknown) date) unknown) (unknown) (no (unknown) (unknown) marital status: (units (unknown) date) unmarried,living unknown) together (unknown) (no (unknown) (unknown) may occur. 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) (unknown) (no (unknown) (unknown) (units (unk nown) date) infection unknown) (unknown) (no (unknown) (unknown) precautions, (units (u nknown) date) Listeriosis unknown) prevention and Rubella Immunization (unknown) (no (unknown) (unknown) prenat.vits,tammy, (units (unknown) date) [id number] 1 unknown) tab PO DAILY 06/11/18 [History Confirmed (unknown) (no (unknown) (unknown) read the note (units ( unknown) date) carefully and unknown) recognize, using context, where these substitutions (unknown) (no (unknown) (unknown) seatbelt use: (units ( unknown) date) always unknown) (unknown) (no (unknown) (unknown) second hand (units (un known) date) exposure: Yes unknown) (s/o smokes, outside) (unknown) (no (unknown) (unknown) software. (units (unkn own) date) Although every unknown) effort is made to edit content, status controller errors (unknown) (no (unknown) (unknown) special teagan (units ( unknown) date) needs: No unknown) (unknown) (no (unknown) (unknown) substance use (units ( unknown) date) type: does not unknown) use (unknown) (no (unknown) (unknown) travel history: (units (unknown) date) recent (domestic unknown) only) (unknown) (no (unknown) (unknown) water heater (units (u nknown) date) temp set < 120 unknown) deg: Yes (unknown) (no (unknown) (unknown) well-balanced (units ( unknown) date) diet: daily or unknown) most days (unknown) (no (unknown) (unknown) work prior to (units ( unknown) date) knowing of unknown) ) (unknown) (no (unknown) (unknown) working smoke (units ( unknown) date) detector in home: unknown) Yes Result panel 11 (unknown) (no (unknown) (unknown) (no value) (units (unk nown) date) unknown) (unknown) (no (unknown) (unknown) (constipation, (units (unknown) date) gums bleeding w/ unknown) brushing) (unknown) (no (unknown) (unknown) Genetic (units (unkn own) date) Screening/Teratol unknown) ogy Counseling - Includes patient, baby's father, or (unknown) (no (unknown) (unknown) [phone] (units (unkno wn) date) unknown) (unknown) (no (unknown) (unknown) 12/29/22 1100 (units ( unknown) date) unknown) (unknown) (no (unknown) (unknown) 12/29/22 (units (unkno wn) date) unknown) (unknown) (no (unknown) (unknown) 12/29/22] (units (unkn own) date) unknown) (unknown) (no (unknown) (unknown) 01/17/19 39 36 9 (units (unknown) date) lb 0.4 oz Male unknown) live - full ter (unknown) (no (unknown) (unknown) 09:32) (units (unkno wn) date) unknown) (unknown) (no (unknown) (unknown) 09/12/16 40.5 30 (units (unknown) date) 8 lb 14 oz Male unknown) live - full term (unknown) (no (unknown) (unknown) Abnormal lab (units (u nknown) date) values 1st unknown) trimester: discussed (unknown) (no (unknown) (unknown) Add'l Plan (units (unk nown) date) Details unknown) (unknown) (no (unknown) (unknown) Age/Sex: 32 / F (units (unknown) date) Date of Service: unknown) (unknown) (no (unknown) (unknown) Allergies (units (unkn own) date) unknown) (unknown) (no (unknown) (unknown) LATASHA Chen (units ( unknown) date) [id number] unknown) (unknown) (no (unknown) (unknown) Aneuploidy (units (unk nown) date) Screening unknown) Offered: Declined (unknown) (no (unknown) (unknown) Anticipated (units (un known) date) course of unknown) care: discussed (unknown) (no (unknown) (unknown) Anxiety (units (unkno wn) date) unknown) (unknown) (no (unknown) (unknown) Assessment and (units (unknown) date) Plan unknown) (unknown) (no (unknown) (unknown) Attempted, poor (units (unknown) date) latch other Liamj unknown) (unknown) (no (unknown) (unknown) Attending Dr: (units ( unknown) date) Rose Mary Mcdowell unknown) (unknown) (no (unknown) (unknown) BMI Refused (units (un known) date) unknown) (unknown) (no (unknown) (unknown) BMI Screening: (units (unknown) date) Yes BMI within unknown) normal limits (unknown) (no (unknown) (unknown) (units (unkno wn) date) Plan/Preferences unknown) (unknown) (no (unknown) (unknown) Planning (units (unknown) date) unknown) (unknown) (no (unknown) (unknown) Bleach (Sodium (units (unknown) date) Hypochlorite) unknown) Adverse Reaction (Severe, Verified 12/29/22 09:32) (unknown) (no (unknown) (unknown) Blood (units (unkno wn) date) transfusions?: unknown) yes (Never had but would accept) (unknown) (no (unknown) (unknown) Breastfeed Preg (units (unknown) date) Comp Name unknown) (unknown) (no (unknown) (unknown) Current Estimate (units (unknown) date) 08/02/23 LMP unknown) (Uncertain) 9w 1d (unknown) (no (unknown) (unknown) Current (units (unkno wn) date) History unknown) (unknown) (no (unknown) (unknown) : 1990 (units (unknown) date) Acct:[id number] unknown) (unknown) (no (unknown) (unknown) Date of positive (units (unknown) date) home unknown) test: 12/17/22 (unknown) (no (unknown) (unknown) Del. Date (units (unkn own) date) GA/Weeks Labor unknown) Lgth Wt Sex Route Outcome Anesthesia Place (unknown) (no (unknown) (unknown) Delivery Date: (units (unknown) date) 09/12/16 Last unknown) Updated by: Janey Garcia RN (unknown) (no (unknown) (unknown) Delv (units (unkno wn) date) unknown) (unknown) (no (unknown) (unknown) Denies Congenital (units (unknown) date) Heart Defect, unknown) Denies Down Syndrome, Denies Muscular Dystrophy, (unknown) (no (unknown) (unknown) Denies Maternal (units (unknown) date) Metabolic unknown) Disorder (EG,TYPE 1 Diabetes, PKU), Denies Patient or (unknown) (no (unknown) (unknown) Denies Neural (units ( unknown) date) Tube Defect unknown) (Meningomyelocele , Spina Bifida, or Anencephaly), (unknown) (no (unknown) (unknown) Denies Sickle (units ( unknown) date) Cell Disease or unknown) Trait (), Denies Hemophilia or other blood (unknown) (no (unknown) (unknown) Denies Darius-Sachs (units (unknown) date) (Ashkenazi unknown) Jehovah'S Witness, Cajun, Mal[place]ian Finnish), Denies Jacob (unknown) (no (unknown) (unknown) Depression: (units (un known) date) discussed unknown) (unknown) (no (unknown) (unknown) Dept at (units (unkno wn) date) . unknown) (unknown) (no (unknown) (unknown) Diet and (units (unkno wn) date) Exercise unknown) (unknown) (no (unknown) (unknown) Difficulty (units (unk nown) date) Breathing unknown) (unknown) (no (unknown) (unknown) Disease (units (unkno wn) date) (Ashkenazi unknown) Jehovah'S Witness), Denies Familial Dysautonomia (Ashkenazi Jehovah'S Witness), (unknown) (no (unknown) (unknown) Documented By: (units (unknown) date) Rose Mary Mcdowell unknown) 12/29/22 0936 (unknown) (no (unknown) (unknown) MARY BETH Calculator (units (unknown) date) unknown) (unknown) (no (unknown) (unknown) [facility] [place] (units (un known) date) unknown) (unknown) (no (unknown) (unknown) Estimated (units (unkn own) date) Delivery Date unknown) Method Current (unknown) (no (unknown) (unknown) Exercise and (units (u nknown) date) activity, unknown) work/environmenta l/hazards, Sexual activity, X-ray (unknown) (no (unknown) (unknown) Family History (units (unknown) date) (Updated 12/29/22 unknown) @ 09:36 by Janey Garcia RN) (unknown) (no (unknown) (unknown) Father of Baby: (units (unknown) date) same unknown) (unknown) (no (unknown) (unknown) [facility] unknown) (unknown) (no (unknown) (unknown) First Trimester (units (unknown) date) Education unknown) Checklist (unknown) (no (unknown) (unknown) Genetic (units (unkno wn) date) Screening + unknown) Counseling (unknown) (no (unknown) (unknown) Genetic (units (unkno wn) date) Screening unknown) (unknown) (no (unknown) (unknown) Grandmother Lung (units (unknown) date) cancer unknown) (unknown) (no (unknown) (unknown) 3 (units (unkn own) date) Multiple births 0 unknown) (unknown) (no (unknown) (unknown) H/O knee surgery (units (unknown) date) unknown) (unknown) (no (unknown) (unknown) HIV risk (units (unkno wn) date) evaluation: low unknown) risk (unknown) (no (unknown) (unknown) Health Center (units ( unknown) date) Education unknown) (unknown) (no (unknown) (unknown) Health center (units ( unknown) date) information: unknown) nature of practice discussed, personnel (unknown) (no (unknown) (unknown) Hepatitis C risk (units (unknown) date) evaluation: low unknown) risk (unknown) (no (unknown) (unknown) History of (units (unk nown) date) Hepatitis B: No unknown) (unknown) (no (unknown) (unknown) History of (units (unk nown) date) Hepatitis C: No unknown) (unknown) (no (unknown) (unknown) History of (units (unk nown) date) section unknown) (unknown) (no (unknown) (unknown) Hives (units (unkno wn) date) unknown) (unknown) (no (unknown) (unknown) Hospital: (units (u nknown) date) unknown) (unknown) (no (unknown) (unknown) [place] (units (u nknown) date) Chorea, Denies unknown) Other inherited genetic or chromosomal disorder, (unknown) (no (unknown) (unknown) Hx # (units (u nknown) date) Pregnancies 0 unknown) Elective abortions 0 (unknown) (no (unknown) (unknown) Hx # Term (units (unkn own) date) Pregnancies 2 unknown) Ectopic pregnancies 0 (unknown) (no (unknown) (unknown) will be (units (unknown) date) adopted?: no unknown) (unknown) (no (unknown) (unknown) Infection (units (unkn own) date) History unknown) (unknown) (no (unknown) (unknown) Infectious (units (unk nown) date) Disease Education unknown) (unknown) (no (unknown) (unknown) Infectious (units (unk nown) date) disease exposure: unknown) chicken pox immunity discussed, hepatitis risk (unknown) (no (unknown) (unknown) Intake Clinical (units (unknown) date) Staff unknown) (unknown) (no (unknown) (unknown) Intake performed (units (unknown) date) by: unknown) Denzel Garcia (unknown) (no (unknown) (unknown) Intake (units (unkno wn) date) unknown) (unknown) (no (unknown) (unknown) Live with (units (unkn own) date) someone with TB unknown) or exposed to TB: No (unknown) (no (unknown) (unknown) Loc: [facility] (units (unkno wn) date) unknown) (unknown) (no (unknown) (unknown) Marital status: (units (unknown) date) unmarried,living unknown) together (unknown) (no (unknown) (unknown) Medical History (units (unknown) date) (Updated 12/29/22 unknown) @ 10:45 by Janey Garcia RN) (unknown) (no (unknown) (unknown) Medications (units (un known) date) unknown) (unknown) (no (unknown) (unknown) Number of Living (units (unknown) date) Children 2 unknown) (unknown) (no (unknown) (unknown) Nutrition and (units ( unknown) date) weight gain unknown) counseling: special diet: discussed (unknown) (no (unknown) (unknown) OB Office Visit (units (unknown) date) unknown) (unknown) (no (unknown) (unknown) On control (units (unknown) date) at conception?: unknown) No (unknown) (no (unknown) (unknown) PFSH (units (unkno wn) date) unknown) (unknown) (no (unknown) (unknown) Para 2 (units (unkno wn) date) Spontaneous unknown) abortions 0 (unknown) (no (unknown) (unknown) Partner history (units (unknown) date) of STD: denies hx unknown) (unknown) (no (unknown) (unknown) Partner history (units (unknown) date) of genital unknown) herpes: No (unknown) (no (unknown) (unknown) Partner: (units (unkno wn) date) Raudelopher unknown) Jr. Chinedu (unknown) (no (unknown) (unknown) Past Pregnancies (units (unknown) date) unknown) (unknown) (no (unknown) (unknown) Patient's age 37 (units (unknown) date) years or older as unknown) of estimated date of delivery: No (unknown) (no (unknown) (unknown) Patient: (units (unkno wn) date) Ana Judge D unknown) MR#: [id number] (unknown) (no (unknown) (unknown) Electrical Drafter: (units ( unknown) date) DOD unknown) (unknown) (no (unknown) (unknown) Personal history (units (unknown) date) of STD: HPV and unknown) denies hx (unknown) (no (unknown) (unknown) Personal history (units (unknown) date) of genital unknown) herpes: No (unknown) (no (unknown) (unknown) (units (unk nown) date) hemorrhage unknown) (unknown) (no (unknown) (unknown) (units (unkn own) date) History unknown) (unknown) (no (unknown) (unknown) type:: (units (unknown) date) Other Normal unknown) (unknown) (no (unknown) (unknown) (units (unkno wn) date) Education unknown) (unknown) (no (unknown) (unknown) Initial (units (unknown) date) Assessment unknown) (unknown) (no (unknown) (unknown) (units (unkno wn) date) Testing: unknown) discussed (unknown) (no (unknown) (unknown) Visit (units (unknown) date) unknown) (unknown) (no (unknown) (unknown) (units (unkno wn) date) education packet: unknown) Child education/plan, symptoms, (unknown) (no (unknown) (unknown) Primary Care (units (u nknown) date) [facility] [place] (unknown) (no (unknown) (unknown) Primary Ob (units (unk nown) date) Provider: unknown) Rose Mary Mcdowell (unknown) (no (unknown) (unknown) Prior (units (unkno wn) date) GBS-Infected unknown) child: No (unknown) (no (unknown) (unknown) Providers (units (unkn own) date) unknown) (unknown) (no (unknown) (unknown) Rash or viral (units ( unknown) date) illness since unknown) last menstrual period: No (unknown) (no (unknown) (unknown) Rash (units (unkno wn) date) unknown) (unknown) (no (unknown) (unknown) Reason For Visit (units (unknown) date) unknown) (unknown) (no (unknown) (unknown) Recent travel (units ( unknown) date) outside of unknown) country?: No (unknown) (no (unknown) (unknown) Recurrent (units (unkn own) date) loss or unknown) a stillbirth: No (unknown) (no (unknown) (unknown) S/P (units (unkno wn) date) tonsillectomy unknown) (unknown) (no (unknown) (unknown) Safety (units (unkno wn) date) unknown) (unknown) (no (unknown) (unknown) Signed By: (units (unk nown) date) <Electronically unknown) signed by Rose Mary Mcdowell MD> (unknown) (no (unknown) (unknown) Signed (units (unkno wn) date) unknown) (unknown) (no (unknown) (unknown) Smoking Status: (units (unknown) date) Former smoker unknown) (quit in her early 20s) (unknown) (no (unknown) (unknown) Social History (units (unknown) date) unknown) (unknown) (no (unknown) (unknown) Support (units (unkno wn) date) Person(s):: unknown) Dieterer (unknown) (no (unknown) (unknown) Surgical History (units (unknown) date) (Updated 12/29/22 unknown) @ 09:35 by Janey Garcia RN) (unknown) (no (unknown) (unknown) Surrogate (units (unkn own) date) ?: no unknown) (unknown) (no (unknown) (unknown) Symptoms since (units (unknown) date) LMP: Reports unknown) amenorrhea, nausea (very mild) and other (unknown) (no (unknown) (unknown) Teratogen (units (unkno wn) date) Exposures since unknown) LMP/Conception: Reports other (X-ray and anesthesia at (unknown) (no (unknown) (unknown) Testing (units (unkno wn) date) Education unknown) (unknown) (no (unknown) (unknown) Testing (units (unkno wn) date) education unknown) completed: group B strep and Spina bifida testing (unknown) (no (unknown) (unknown) This note may (units ( unknown) date) have been all or unknown) partially generated using voice recognition (unknown) (no (unknown) (unknown) Tobacco + (units (unkn own) date) Substance Use unknown) (unknown) (no (unknown) (unknown) Tobacco Status (units (unknown) date) unknown) (unknown) (no (unknown) (unknown) Type(s) of (units (unk nown) date) 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, 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) (unknown) (no (unknown) (unknown) Unable 2/2 (units (unk nown) date) severe tongue tie unknown) none (unknown) (no (unknown) (unknown) Varicella/chicke (units (unknown) date) n pox status: unknown) immunized (only 1 dose) (unknown) (no (unknown) (unknown) Visit Reasons: (units (unknown) date) Telephone intake unknown) for [place] (unknown) (no (unknown) (unknown) Vitamins and (units (u nknown) date) iron, Diet and unknown) weight gain, Fish and mercury intake, Caffeine use, (unknown) (no (unknown) (unknown) WG (units (unkno wn) date) unknown) (unknown) (no (unknown) (unknown) Zika virus (units (unk nown) date) exposure: No unknown) (unknown) (no (unknown) (unknown) alcohol intake: (units (unknown) date) former (rarely unknown) when not ) (unknown) (no (unknown) (unknown) and Influenza (units ( unknown) date) vaccine (will get unknown) flu shot, has had Covid x2) (unknown) (no (unknown) (unknown) and stopping (units (u nknown) date) OCP) unknown) (unknown) (no (unknown) (unknown) anesthesia duty (units (unknown) date) while ) unknown) (unknown) (no (unknown) (unknown) anyone in either (units (unknown) date) family with: unknown) (unknown) (no (unknown) (unknown) baby's father (units ( unknown) date) had a child with unknown) defects not listed above and Denies Other (unknown) (no (unknown) (unknown) caffeine: Yes (units ( unknown) date) (aware of 200mg unknown) limit, trying to cut back) (unknown) (no (unknown) (unknown) carbon monox (units (u nknown) date) detector in home: unknown) Yes (unknown) (no (unknown) (unknown) caregiver/suppor (units (unknown) date) t person: Yes unknown) (unknown) (no (unknown) (unknown) counseling (units (unk nown) date) unknown) (unknown) (no (unknown) (unknown) current (units (unkno wn) date) occupational unknown) exposures/hazards : Yes (several, but off Xray and (unknown) (no (unknown) (unknown) daily servings (units (unknown) date) fruits/ve or unknown) more times/day (unknown) (no (unknown) (unknown) described, visit (units (unknown) date) schedule unknown) reviewed, ultrasounds policy reviewed, coverage 24 (unknown) (no (unknown) (unknown) discussed, (units (unk n) date) tuberculosis unknown) exposure discussed, CMV discussed, Toxoplasmosis (unknown) (no (unknown) (unknown) disorders, (units (unk n) date) Denies Cystic unknown) Fibrosis, Denies Mental Retardation/Autis m, Denies (unknown) (no (unknown) (unknown) do you feel safe (units (unknown) date) at home: Yes unknown) (unknown) (no (unknown) (unknown) during the past (units (unknown) date) year weight has: unknown) decreased > 10 lbs (-20 lb, likely r/t stress (unknown) (no (unknown) (unknown) education level: (units (unknown) date) college (some unknown) college, working on associate's degree) (unknown) (no (unknown) (unknown) exposure, (units (unkn own) date) Medication use, unknown) Sauna/hot tub use, Dental care, Travel, Seatbelt use (unknown) (no (unknown) (unknown) failure to (units (unk nown) date) progress Wilder unknown) (unknown) (no (unknown) (unknown) fire (units (unkno wn) date) extinguisher in unknown) home: Yes (unknown) (no (unknown) (unknown) firearms in (units (un known) date) home: No unknown) (unknown) (no (unknown) (unknown) have occurred. (units (unknown) date) If there are any unknown) questions, please contact the Medical Records (unknown) (no (unknown) (unknown) helmet use: No (units (unknown) date) (Counseled to do unknown) so) (unknown) (no (unknown) (unknown) hours a day, (units (un known) date) participation of unknown) father in care and office visits and (unknown) (no (unknown) (unknown) household (units (unkn own) date) members: unknown) significant other and children (unknown) (no (unknown) (unknown) housing: house (units (unknown) date) unknown) (unknown) (no (unknown) (unknown) lavender (units (unkno wn) date) (Lavandula unknown) angustifolia) Allergy (Intermediate, Verified 12/29/22 (unknown) (no (unknown) (unknown) lives (units (unkno wn) date) independently: unknown) Yes (unknown) (no (unknown) (unknown) KAHLIL Rivas (units ( unknown) date) unknown) (unknown) (no (unknown) (unknown) marital status: (units (unknown) date) unmarried,living unknown) together (unknown) (no (unknown) (unknown) may occur. 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) (unknown) (no (unknown) (unknown) (units (unk nown) date) infection unknown) (unknown) (no (unknown) (unknown) precautions, (units (u nknown) date) Listeriosis unknown) prevention and Rubella Immunization (unknown) (no (unknown) (unknown) prenat.vits,tammy, (units (unknown) date) wam-rypc-lowim 1 unknown) tab PO DAILY 06/11/18 [History Confirmed (unknown) (no (unknown) (unknown) read the note (units ( unknown) date) carefully and unknown) recognize, using context, where these substitutions (unknown) (no (unknown) (unknown) seatbelt use: (units ( unknown) date) always unknown) (unknown) (no (unknown) (unknown) second hand (units (un known) date) exposure: Yes unknown) (s/o smokes, outside) (unknown) (no (unknown) (unknown) software. (units (unkn own) date) Although every unknown) effort is made to edit content, status controller errors (unknown) (no (unknown) (unknown) special teagan (units ( unknown) date) needs: No unknown) (unknown) (no (unknown) (unknown) substance use (units ( unknown) date) type: does not unknown) use (unknown) (no (unknown) (unknown) travel history: (units (unknown) date) recent (domestic unknown) only) (unknown) (no (unknown) (unknown) water heater (units (u nknown) date) temp set < 120 unknown) deg: Yes (unknown) (no (unknown) (unknown) well-balanced (units ( unknown) date) diet: daily or unknown) most days (unknown) (no (unknown) (unknown) work prior to (units ( unknown) date) knowing of unknown) ) (unknown) (no (unknown) (unknown) working smoke (units ( unknown) date) detector in home: unknown) Yes Social History date description facility 2022-12-29 00:00 [facility] No information.
[2023-01-04 18:11] LABS: BASOPHILS % (AUTO) 0.3 %; EOSINOPHILS # (AUTO) 0.1 10^3/uL (0.0-0.7); EOSINOPHILS % (AUTO) 0.7 %; HCT - HEMATOCRIT 37.4 % (37.0-47.0); HGB - HEMOGLOBIN 12.2 g/dL (12.0-16.0); LYMPHOCYTES # (AUTO) 2.1 10^3/uL (1.5-3.5); LYMPHOCYTES % (AUTO) 27.4 %; MEAN CORPUSCULAR HEMOGLOBIN 29.6 pg (27.0-31.0); MEAN CORPUSCULAR HGB CONC 32.6 g/dL (32.0-36.0); MEAN CORPUSCULAR VOLUME 90.8 fL (81.0-99.0); MEAN PLATELET VOLUME 9.4 fL (7.9-10.8); MONOCYTES # (AUTO) 0.4 10^3/uL (0.0-1.0); MONOCYTES % (AUTO) 5.5 %; NEUTROPHILS % (AUTO) 65.8 %; PLT - PLATELET COUNT 231 10^3/uL (130-450); RED BLOOD COUNT 4.12 10^6/uL (4.20-5.40); RED CELL DISTRIBUTION WIDTH 12.1 % (12.0-15.0); WHITE BLOOD COUNT 7.6 x10^3/uL (4.8-10.8)
[2023-01-04 18:11] LABS: BILIRUBIN,URINE NEGATIVE (NEGATIVE); GLUCOSE, URINE (UA) NEGATIVE (NEGATIVE); KETONES,URINE (UA) NEGATIVE (NEGATIVE); LEUKOCYTE ESTERASE, URINE NEGATIVE (NEGATIVE); NITRITE,URINE NEGATIVE (NEGATIVE); OCCULT BLOOD,URINE NEGATIVE (NEGATIVE); PROTEIN,URINE NEGATIVE (NEGATIVE); UROBILINOGEN,URINE 0.2 (NORMAL) E.U./dL (NORMAL)
--- NOTE | 2023-01-04 18:13 | ED Physician Documentation ---
History of Present Illness - Stated complaint Stated Complaint: FEMALE - Chief complaint Chief Complaint: Abd Pain - History obtained from History obtained from: Patient - History of Present Illness Pain level max: 5 Pain level now: 4 - Additonal information Additional information: Patient is a 32-year-old female who presents to the emergency department complaining of left-sided pelvic pain. She states that she believes she is about 6 weeks . Has not yet seen her OB. She states that over the past 1 to 2 days has developed left pelvic pressure. She is a G3, P2. No vaginal bleeding. She states slight discharge but no color or odor. Nothing seems to make this better or worse. No nausea or vomiting. No headache. No fever. No chills. 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 Psych: Anxiety Musculoskeletal: Other - Past Surgical History Past Surgical History: Yes Ortho: Arthroscopic surgery /PHILATELIC CONSULTANT: section HEENT: Tonsil/Adenoidectomy - Present Medications Home Medications: Ambulatory Orders Medication Instructions Recorded Confirmed Citalopram [CeleXA] 10 mg PO DAILY 07/11/19 05/28/22 Cyclobenzaprine [Flexeril] 10 mg PO TID PRN #20 tablet 05/28/22 HYDROcod/ACETAM 5/325 [[place] 5/325] 1 - 2 tablet PO Q6H PRN #14 tablet 05/28/22 Ciprofloxacin HCl 500 mg PO BID 08/31/22 08/31/22 HYDROcod/ACETAM 5/325 [[place] 5/325] 1 - 2 ea PO Q6H PRN #14 tablet 08/31/22 Ondansetron Odt [Zofran] 4 mg TL Q6H PRN #10 tablet 08/31/22 Sulfamethox/Trimeth 800/160 1 each PO BID #14 tablet 08/31/22 [Bactrim Ds 800/160] - Allergies Allergies/Adverse Reactions: Allergies Allergy/AdvReac Type Severity Reaction Status Date / Time No Known Drug Allergies Allergy Verified 01/04/23 17:41 - Social History Does the pt smoke?: No Smoking Status: Never smoker Does the pt drink ETOH?: Yes Does the pt have substance abuse?: No - Immunizations Immunizations are current?: Yes PD ED PE NORMAL - Vitals Vital signs reviewed: Yes - General General: Alert and oriented X 3, No acute distress - HEENT HEENT: Moist mucous membranes - Neck Neck: Supple, no meningeal sign - Cardiac Cardiac: RRR, Strong equal pulses - Respiratory Respiratory: No respiratory distress, Clear bilaterally - Abdomen Abdomen: Soft, Non distended, Other (Mild tenderness to palpation in the left pelvic area, no peritoneal signs.) - Female Female : Pt declined - Back Back: No CVA TTP, No spinal TTP - Derm Derm: Warm and dry - Extremities Extremities: No edema - Neuro Neuro: Alert and oriented X 3 Results - Vitals Vitals: Vital Signs - 24 hr 01/04/23 17:38 Temperature 36.8 C Heart Rate 83 Respiratory 20 Rate Blood Pressure 122/63 O2 Saturation 100 Oxygen O2 Source Room air - Labs Labs: Laboratory Tests 01/04/23 01/04/23 01/04/23 17:58 18:05 18:05 WBC 7.6 RBC 4.12 L Hgb 12.2 Hct 37.4 MCV 90.8 MCH 29.6 MCHC 32.6 RDW 12.1 Plt Count 231 MPV 9.4 Neut # (Auto) 5.0 Lymph # (Auto) 2.1 [place] # (Auto) 0.4 Eos # (Auto) 0.1 Baso # (Auto) 0.0 Absolute Nucleated RBC 0.00 Nucleated RBC % 0.0 Sodium 140 Potassium 3.4 L Chloride 105 Carbon Dioxide 27 Anion Gap 8.0 BUN 11 Creatinine 0.7 Estimated GFR (MDRD) 98 Glucose 110 H Calcium 9.5 Total Bilirubin 0.6 AST 17 ALT 16 Alkaline Phosphatase 47 Total Protein 7.6 Albumin 4.7 Globulin 2.9 Albumin/Globulin Ratio 1.6 Lipase 47 HCG, Quant Urine Color YELLOW Urine Clarity CLEAR Urine pH 6.0 Ur Specific [place] 1.025 Urine Protein NEGATIVE Urine Glucose (UA) NEGATIVE Urine Ketones NEGATIVE Urine Occult Blood NEGATIVE Urine Nitrite NEGATIVE Urine Bilirubin NEGATIVE Urine Urobilinogen 0.2 (NORMAL) Ur Leukocyte Esterase NEGATIVE Ur Microscopic Review NOT INDICATED Urine Culture Comments NOT INDICATED 01/04/23 18:05 WBC RBC Hgb Hct MCV MCH MCHC RDW Plt Count MPV Neut # (Auto) Lymph # (Auto) [place] # (Auto) Eos # (Auto) Baso # (Auto) Absolute Nucleated RBC Nucleated RBC % Sodium Potassium Chloride Carbon Dioxide Anion Gap BUN Creatinine Estimated GFR (MDRD) Glucose Calcium Total Bilirubin AST ALT Alkaline Phosphatase Total Protein Albumin Globulin Albumin/Globulin Ratio Lipase HCG, Quant 5897.00 Urine Color Urine Clarity Urine pH Ur Specific [place] Urine Protein Urine Glucose (UA) Urine Ketones Urine Occult Blood Urine Nitrite Urine Bilirubin Urine Urobilinogen Ur Leukocyte Esterase Ur Microscopic Review Urine Culture Comments - Rads (name of study) OB ultrasound Relevant Findings:: Final report received, See rad report PD Medical Decision Making - ED course Complexity details: reviewed results, re-evaluated patient, considered differential, d/w patient, d/w family ED course: 32-year-old female presents to the emergency department with mild left pelvic pain, positive test. She has a gestational sac and yolk sac, no pole is identified yet. Appears to have a left corpus luteum cyst. Beta hCG is approximately 5800. Ectopic precautions given at bedside. Patient is having minimal pain currently. We will have her follow-up with her OB for repeat hCG and likely repeat ultrasound. Patient counseled regarding signs and symptoms for which I believe and urgent re-evaluation would be necessary. Patient with good understanding of and agreement to plan and is comfortable going home at this time This document was made in part using voice recognition software. While efforts are made to proofread this document, sound alike and grammatical errors may occur. EXAM: [id number] ([id number]) PROCEDURE: OB First Trimester INDICATIONS: L pelvic pain, est 6 weeks preg OUTSIDE/PRIOR DATING DATA: Last menstrual period (LMP): Unsure. TECHNIQUE: Real-time scanning was performed of the fetus and maternal pelvic organs, with image documentation. COMPARISON: None FINDINGS: Gestational sac diameter is 0.6 this corresponds to an ultrasound age of 5 weeks and 2 days. pole is not identified. A yolk sac is present. Ovarian follicles and cysts/corpus luteum are present. IMPRESSION: A gestational sac with yolk sac is identified in the uterus. of unknown location, recommend follow-up imaging and laboratory correlation. Departure - Departure Disposition: 01 Home, Self Care Clinical Impression: Pelvic pain affecting Qualifiers: Trimester: first trimester Qualified Code(s): O26.891 - Other specified related conditions, first trimester Condition: Good Instructions: ED Abdominal Pain Rule Out Ectopic, ED Preg Established Normal Sxs Follow-Up: your,OB in 3 days [Other] Comments: Your hCG tonight is 5897. Your ultrasound shows a gestational sac and yolk sac in the uterus. It appears that you are approximately 5 weeks and 2 days estimated gestational age. You have a left-sided corpus luteum cyst. It is recommended that you have a repeat hCG in 3 days with your OB. They will likely want to repeat your ultrasound in about 1 week. Please return if you worsen including worsening pain, fevers, vaginal bleeding or any other new or worrisome symptoms. Discharge Date/Time: 01/04/23 19:20
[2023-01-04 18:14] LABS: CLARITY,URINE CLEAR (CLEAR)
[2023-01-04 18:28] LABS: ALBUMIN 4.7 g/dL (3.2-5.5); ALBUMIN/GLOBULIN RATIO 1.6 (1.0-2.2); BILIRUBIN,TOTAL 0.6 mg/dL (0.2-1.0); CALCIUM 9.5 mg/dL (8.5-10.3); CREATININE 0.7 mg/dL (0.4-1.0); POTASSIUM 3.4 mmol/L (3.5-5.0); TOTAL PROTEIN 7.6 g/dL (6.7-8.2)
--- NOTE | 2023-01-04 19:16 | Ultrasound Report ---
PROCEDURE: OB First Trimester INDICATIONS: L pelvic pain, est 6 weeks preg OUTSIDE/PRIOR DATING DATA: Last menstrual period (LMP): Unsure. TECHNIQUE: Real-time scanning was performed of the fetus and maternal pelvic organs, with image documentation. COMPARISON: None FINDINGS: Gestational sac diameter is 0.6 this corresponds to an ultrasound age of 5 weeks and 2 day s. pole is not identified. A yolk sac is present. Ovarian follicles and cysts/corpus luteum are present. IMPRESSION: A gestational sac with yolk sac is identified in the uterus. of unknown location, recommend follow-up imaging and laboratory correlation. Reviewed by: Kalin Talley MD on 01/04/2023 7:14 PM PDT Approved by: Kalin Talley MD on 01/04/2023 7:14 PM PDT Station ID: [id number]
== END 2023-01-04 19:20 | disposition home or self-care (01) ==
LOC: ED 17:33
DX: O26.891 Other specified pregnancy related conditions, first trimester (principal); R10.2 Pelvic and perineal pain; Z3A.01 Less than 8 weeks gestation of pregnancy
CPT/HCPCS: 36415; 80053; 81001; 81003; 83690; 84702; 85025; 87086; 99283; 99284

== ENCOUNTER 2023-09-05 18:30 | Emergency (ER) | payer OTHER ==
[2023-09-05 18:54] VITALS: BP 118/86; O2SAT 98
--- NOTE | 2023-09-05 18:58 | ED Physician Documentation ---
PD HPI SKIN - Stated complaint Stated Complaint: CAT BITE - Chief complaint Chief Complaint: Wound - History obtained from History obtained from: Patient - Additional information Additional information: 33-year-old female presents with accidental cat bite that occurred just prior to arrival. It is a kitten that is a family pet, cat is up-to-date on vaccinations for age. 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 She states she just wants antibiotics that she does not want anything else and declines x-ray imaging. Review of Systems Constitutional: denies: Fever, Chills Skin: reports: Bite / sting. denies: Rash, Lesions, Abrasion (s), Laceration (s) Musculoskeletal: reports: Extremity pain (R index finger). 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: section HEENT: Tonsil/Adenoidectomy - Present Medications Home Medications: Ambulatory Orders Medication Instructions Recorded Confirmed Citalopram [CeleXA] 10 mg PO DAILY 07/11/19 05/28/22 Cyclobenzaprine [Flexeril] 10 mg PO TID PRN #20 tablet 05/28/22 HYDROcod/ACETAM 5/325 [Foster 5/325] 1 - 2 tablet PO Q6H PRN #14 tablet 05/28/22 Ciprofloxacin HCl 500 mg PO BID 08/31/22 08/31/22 HYDROcod/ACETAM 5/325 [Foster 5/325] 1 - 2 ea PO Q6H PRN #14 tablet 08/31/22 Ondansetron Odt [Zofran] 4 mg TL Q6H PRN #10 tablet 08/31/22 Sulfamethox/Trimeth 800/160 1 each PO BID #14 tablet 08/31/22 [Bactrim Ds 800/160] Amox/Clav 875/125 [Augmentin] 1 each PO Q12H #20 tablet 09/05/23 - Allergies Allergies/Adverse Reactions: Allergies Allergy/AdvReac Type Severity Reaction Status Date / Time No Known Drug Allergies Allergy Verified 01/04/23 17:41 - Social History Does the pt smoke?: No Smoking Status: Never smoker Does the pt drink ETOH?: Yes Does the pt have substance abuse?: No - Immunizations Immunizations are current?: Yes PD ED PE NORMAL - Vitals Vital signs reviewed: Yes - General General: Alert and oriented X 3, No acute distress, Well developed/nourished - Respiratory Respiratory: No respiratory distress - Derm Derm: Normal color, Warm and dry, Other (punctate bite dejuan pad of R index finger. Minimal swelling present) Results - Vitals Vitals: Vital Signs - 24 hr 09/05/23 09/05/23 18:48 19:03 Temperature 36.8 C Heart Rate 72 72 Respiratory 18 18 Rate Blood Pressure 118/86 H 118/86 H O2 Saturation 98 98 Oxygen O2 Source Room air PD Medical Decision Making - ED course Complexity details: considered differential, d/w patient ED course: Accidental bite from family pet. Patient UTD on tetanus. Patient declines XR, requesting rx for antibiotics. Augmentin sent to pharmacy of choice. Departure - Departure Disposition: 01 Home, Self Care Clinical Impression: Cat bite of finger Qualifiers: Encounter type: initial encounter Qualified Code(s): S61.259A - Open bite of unspecified finger without damage to nail, initial encounter Condition: Stable Instructions: Bites Scratches Animal Prescriptions: Amox/Clav 875/125 [Augmentin] 1 each PO Q12H #20 tablet Forms: PCP List Discharge Date/Time: 09/05/23 19:03
== END 2023-09-05 19:03 | disposition home or self-care (01) ==
LOC: ED 18:30
DX: S61.250A Open bite of right index finger without damage to nail, initial encounter (principal); W55.01XA Bitten by cat, initial encounter
CPT/HCPCS: 99282; 99283

== ENCOUNTER 2023-09-11 08:00 | Outpatient (CLI) | payer OTHER | END 2023-09-11 23:59 | disposition home or self-care (01) | LOC: LAB.N 08:00 | PROVIDERS: ATTEND Physician Assistant Medical | DX: R30.0 Dysuria (principal) | CPT/HCPCS: 87086 ==

== ENCOUNTER 2025-09-04 05:16 | Inpatient (IN) ==
--- OUTSIDE RECORDS SUMMARY | 2025-09-04 05:20 | EXTERNAL MEDICAL SUMMARY RPT | Continuity of Care Document ---
Author Organization [facility] Address [address] [place] [id number] Phone Allergies and Intolerances date description facility reaction severity 2025-02-21 10:00 [id number]^Bleach (S odium Hypochlorite)^^Bleach (Sodium Hypochlorite)^^[facility] (no severity) 2025-06-01 10:00 [id number]^Bleach (S odium Hypochlorite)^^Bleach (Sodium Hypochlorite)^^[facility] Anaphylaxis (no severity) 2025-06-26 10:00 [id number]^Bleach (S odium Hypochlorite)^^Bleach (Sodium Hypochlorite)^^[facility]aphylaxis (no severity) 2025-07-14 10:00 [id number]^Bleach (S odium Hypochlorite)^^Bleach (Sodium Hypochlorite)^^allergy.[facility] Anaphylaxis (no severity) 2025-07-17 10:00 [id number]^Bleach (S odium Hypochlorite)^^Bleach (Sodium Hypochlorite)^^allergy.[facility] Anaphylaxis (no severity) 2025-08-11 10:00 [id number]^Bleach (S odium Hypochlorite)^^Bleach (Sodium Hypochlorite)^^[facility] severity) 2025-08-21 10:00 [id number]^Bleach (S odium Hypochlorite)^^Bleach (Sodium Hypochlorite)^^[facility] (no severity) 2025-02-21 10:00 [id number]^nickel^^n ickel^^ [facility] (no [facility]) 2025-06-01 10:00 [id number]^nickel^^n ickel^^ [facility] Rash (no severity) 2025-06-26 10:00 [id number]^nickel^^n ickel^^ [facility] Rash (no severity) 2025-07-14 10:00 [id number]^nickel^^n ickel^^ [facility] Rash (no severity) 2025-07-17 10:00 [id number]^nickel^^n ickel^^ [facility] Rash (no severity) 2025-08-11 10:00 [id number]^nickel^^n ickel^^ allergy.id [facility] Rash (no severity) 2025-08-21 10:00 [id number]^nickel^^n ickel^^ allergy.id [facility] Rash (no severity) 2025-06-26 10:00 [id number]^lavender (Lavandula angustifolia)^^lavender (Lavandula angustifolia)^^allergy.id [facility] Hives (no severity) 2025-07-14 10:00 [id number]^lavender (Lavandula angustifolia)^^lavender (Lavandula angustifolia)^^allergy.id [facility] Hives (no severity) 2025-07-17 10:00 [id number]^lavender (Lavandula angustifolia)^^lavender (Lavandula angustifolia)^^allergy.id [facility] Hives (no severity) 2025-08-11 10:00 [id number]^lavender (Lavandula angustifolia)^^lavender (Lavandula angustifolia)^^allergy.id [facility] Hives (no severity) 2025-08-21 10:00 [id number]^lavender (Lavandula angustifolia)^^lavender (Lavandula angustifolia)^^allergy.id [facility] Hives (no severity) 2025-01-26 10:00 lavendar^lavendar [facility] Hives (no severity) 2025-06-01 10:00 lavendar^lavendar [facility] Hives (no severity) Problems date description facility 2025-06-26 09:29 Other specified noninflammatory disorders of vagina [facility] 2025-06-26 09:29 Dysuria [facility] 2025-06-26 09:29 Bacteriuria [facility] 2025-06-26 09:29 Pyuria [facility] 2025-06-26 09:39 Other specified noninflammatory disorders of vagina [facility] 2025-06-26 09:39 Dysuria [facility] 2025-06-26 09:39 Bacteriuria [facility] 2025-06-26 09:39 Pyuria [facility] 2025-06-27 00:04 Other specified noninflammatory disorders of vagina [facility] 2025-06-27 00:04 Dysuria [facility] 2025-06-27 00:04 Bacteriuria [facility] 2025-06-27 00:04 Pyuria [facility] 2025-06-27 10:58 Other specified noninflammatory disorders of vagina [facility] 2025-06-27 10:58 Dysuria [facility] 2025-06-27 10:58 Bacteriuria [facility] 2025-06-27 10:58 Pyuria [facility] 2025-06-27 13:00 Bacteriuria [facility] 2025-06-28 14:26 Encounter for superv ision of normal , unspecified, unspecified trimester [facility] 2025-06-30 08:52 Encounter for superv ision of normal , unspecified, unspecified trimester [facility] 2025-06-30 09:00 Encounter for superv ision of normal , unspecified, unspecified trimester [facility] 2025-06-30 09:01 Encounter for superv ision of normal , unspecified, unspecified trimester [facility] 2025-06-30 09:39 Encounter for superv ision of normal , unspecified, unspecified trimester [facility] 2025-06-30 10:35 Encounter for immunization [facility] 2025-06-30 10:35 Encounter for superv ision of normal , unspecified, unspecified trimester [facility] 2025-07-01 00:03 Encounter for superv ision of normal , unspecified, unspecified trimester [facility] 2025-07-06 13:18 Encounter for immunization edi [facility] 2025-07-06 13:18 Encounter for superv ision of normal , unspecified, unspecified trimester [facility] 2025-07-06 13:18 Encounter for superv ision of normal , unspecified, third trimester [facility] 2025-07-14 09:29 Unspecified conjunctivitis [facility] 2025-07-14 09:29 Acute upper respiratory infecti on, unspecified [facility] 2025-07-17 11:21 Encounter for immunization [facility] 2025-07-19 12:46 Encounter for superv ision of normal , unspecified, third trimester [facility] 2025-07-19 12:47 Encounter for immunization [facility] 2025-08-11 10:32 Encounter for superv ision of normal , unspecified, third trimester [facility] 2025-08-11 15:31 Encounter for screeni ng for Streptococcus B [facility] 2025-08-12 00:02 Encounter for screeni ng for Streptococcus B [facility] 2025-08-12 00:03 Encounter for screeni ng for Streptococcus B [facility] 2025-08-14 13:24 Encounter for screeni ng for Streptococcus B [facility] 2025-08-17 09:41 Frequency of micturition [facility] 2025-08-17 12:22 Frequency of micturition [facility] 2025-08-17 15:08 Encounter for superv ision of normal , unspecified, third trimester [facility] 2025-08-18 00:05 Frequency of micturition [facility] 2025-08-25 13:43 Other specified dise ases and conditions complicating [facility] 2025-08-25 13:43 Frequency of micturition [facility] 2025-08-31 09:15 Encounter for superv ision of normal , unspecified, third trimester [facility] Results/Labs test date facility value unit notes Result panel 1 AMPICILLIN/SULBACTAM 2025-06-26 08:45 [facility] >=32 (missing) (missing) AMPICILLIN 2025-06-26 08:45 [facility] >=32 (missing) This organism is NEGATIVE for Extended Spectrum Beta Lactamase CEFEPIME 2025-06-26 08:45 [facility] <=0.12 (missing) (missing) ERTAPENEM 2025-06-26 08:45 [facility] <=0.12 (missing) (missing) LEVOFLOXACIN 2025-06-26 08:45 [facility] <=0.12 (missing) (missing) CEFTRIAXONE 2025-06-26 08:45 [facility] <=0.25 (missing) (missing) CIPROFLOXACIN 2025-06-26 08:45 [facility] <=0.25 (missing) (missing) IMIPENEM 2025-06-26 08:45 [facility] <=0.25 (missing) (missing) GENTAMICIN 2025-06-26 08:45 [facility] <=1 (missing) (missing) TOBRAMYCIN 2025-06-26 08:45 [facility] <=1 (missing) (missing) NITROFURANTOIN 2025-06-26 08:45 [facility] <=16 (missing) (missing) TRIMETHOPRIM/SULFAMETHO XAZOLE 2025-06-26 08:45 [facility] <=20 (missing) (missing) CUL, URINE 2025-06-26 08:45 [facility] 100>100,000 CFU/mL (missing) (missing) CEFAZOLIN 2025-06-26 08:45 [facility] 8 (missing) (missing) O:ESCCOL 2025-06-26 08:45 [facility] ESCCOLESCHERICHIA COLIESCHERICHIA COLI (missing) (missing) CUL, URINE 2025-06-26 08:45 [facility] IDMICID/CORBIN COM* (missing) (missing) CUL, URINE 2025-06-26 08:45 [facility] SENSISENSITIVITIES TO FOLLOW (missing) (missing) CUL, URINE 2025-06-26 08:45 [facility] UCC.6COLONY COUNT (missing) (missing) Result panel 2 BACTERIAL VAGINOSIS DNA 2025-06-26 09:30 [facility] NEGATIVE (missing) Detection of marker combinations related to normal vaginal danielle. MARY GLABRATA DNA 2025-06-26 09:30 [facility]) No Mary glabrata Detected MARY GROUP DNA 2025-06-26 09:30 [facility] NEGATIVE (missing) No Mary group Detected (Mary albicans and/or Mary tropicalis and/or Mary parapsilosis and/or Mary dubliniensis) MARY KRUSEI DNA 2025-06-26 09:30 [facility] NEGATIVE (missing) No Mary krusei Detected TRICHOMONAS VAGINALIS DNA 2025-06-26 09:30 [facility] NEGATIVE (missing) No Trichomonas vaginalis Detected Result panel 3 HGB - HEMOGLOBIN 2025-06-30 09:54 [facility] 10.2 g/dl (missing) GLUCOSE,1H PP 50GM DOSE 2025-06-30 09:54 [facility] 112 mg/dl 50g Challenge 1 hr post Glucose < 140 mg/dL Reference: [employer] As of March 2023 testing method has changed, this may include reference ranges. RED CELL DISTRIBUTION WIDTH 2025-06-30 09:54 [facility] 13.2 % (missing) PLT - PLATELET COUNT 2025-06-30 09:54 [facility] 177 10 3/ul (missing) RED BLOOD COUNT 2025-06-30 09:54 [facility] 3.38 10 6/ul (missing) MEAN CORPUSCULAR HEMOGLOBIN 2025-06-30 09:54 [facility] 30.2 pg (missing) HCT - HEMATOCRIT 2025-06-30 09:54 [facility] 31.3 % (missing) MEAN CORPUSCULAR HGB CONC 2025-06-30 09:54 [facility] 32.6 g/dl (missing) MEAN PLATELET VOLUME 2025-06-30 09:54 [facility] 9.0 fl (missing) WHITE BLOOD COUNT 2025-06-30 09:54 [facility] 9.6 x10 3/ul (missing) MEAN CORPUSCULAR VOLUME 2025-06-30 09:54 [facility] 92.6 fl (missing) RPR 2025-06-30 09:54 [facility] Non Reactive (missing) Performed at: [facility] [id number] Form Setter Helper: Elton Wray MD, Phone: [phone] Result panel 4 GROUP B STREP PCR 2025-08-11 15:30 [facility] NEGATIVE (missing) (missing) Result panel 5 WBC,URINE 2025-08-17 [facility] 0-3 /hpf (mis sing) RBC,URINE 2025-08-17 [facility] 0-5 /hpf (mis sing) UROBILINOGEN,URIN E 2025-08-17 [facility] 0.2 (NORMAL) e.u./dl (missing) SPECIFIC GRAVITY,URINE 2025-08-17 [facility] 1.010 (missing) (missing) PH,URINE 2025-08-17 [facility] 7.5 ph (mis sing) CLARITY,URINE 2025-08-17 [facility] CLEAR (missing) (missing) SQUAMOUS EPITHELIAL CELL,UR 2025-08-17 [facility] MOD Squamous (missing) (missing) LEUKOCYTE ESTERASE, URINE 2025-08-17 [facility] NEGATIVE (missing) (missing) NITRITE,URINE 2025-08-17 [facility] NEGATIVE (missing) (missing) OCCULT BLOOD,URINE 2025-08-17 [facility] NEGATIVE (missing) (missing) BILIRUBIN,URINE 2025-08-17 [facility] NEGATIVE (missing ) Bilirubin can be influenced by color interference. Please correlate positive results with clinical presentation GLUCOSE, URINE (UA) 2025-08-17 [facility] NEGATIVE mg/dl (missing) KETONES,URINE (UA) 2025-08-17 [facility] NEGATIVE mg/dl (missing) PROTEIN,URINE 2025-08-17 [facility] NEGATIVE mg/dl (missing) UR CULTURE IF IND 2025-08-17 [facility] NOT INDICATED (m issing) A culture is not indicated on urine samples contaminated with greater than a few Squamous Epithelial cells/HPF. A mid-stream clean catch urine for culture is recommended. BACTERIA,URINE 2025-08-17 [facility] Rare /hpf (missing) COLOR,URINE 2025-08-17 [facility] YELLOW (missing) (m issing) Social History date description facility
[2025-09-04 06:23] LABS: HCT - HEMATOCRIT 29.6 % (37.0-47.0); HGB - HEMOGLOBIN 9.3 g/dL (12.0-16.0); MEAN PLATELET VOLUME 9.9 fL (7.9-10.8); NRBC ABSOLUTE COUNT (AUTO) 0.00 x10^3/uL; NUCLEATED RED BLOOD CELLS AUTO 0.0 /100WBC; PLT - PLATELET COUNT 161 10^3/uL (130-450); RED CELL DISTRIBUTION WIDTH 13.7 % (12.0-15.0)
[2025-09-04] MEDS: LACTATED RINGERS 1,000 ML IV SCH (06:56)
--- NOTE | 2025-09-04 07:07 | HISTORY & PHYSICAL EXAMINATION ---
Admit History Smoking Status: Former smoker Other Maternal History Other Maternal History: Patient is a 35-year-old G4, P2 at 39 weeks 1 day gestation presented today for repeat section. She consents to section with bilateral tubal ligation. She Started having some contractions last night, now irregular. Very tolerable. She also developed a small rash around her rib line and bra line in the back.. She has good movement. Denies loss of fluid. No MURDOCK/BV or RUQP. No vaginal bleeding. Denies nausea and vomiting. Denies urinary urgency or dysuria. All other symptoms reviewed and were negative except per HPI. Course LMP:12/04/24, sure. no sex before as he was on detachment. regular q 28 d. MARY BETH by LMP:09/10/25 US:04/13/2025, 19 weeks 2 days, MARY BETH 09/05/25 Final MARY BETH: 09/10/25 mom, Nadja, here to help with kids when Ana is at work. 07/17 undergoing work up for ascites and edema that is severe. 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 Ana does 12 hr shifts at [employer] in [facility]. History of heavy bleeding TOLAC for type and cross for 1 unit. Pre- Weight:120 BMI:21.9 Blood type:O+ Antibody Screen:negative CBC: H/H/PLT12.8/38.8/234 RUB:immune VZV:non immune HBsAg:neg HepC:NR RPR:NR HIV:NR Flu:06/30/25 Covid:06/30/25 PAP:colpo 04/06, repeat pap 02/09/25. ? lesion noted. will try to get records from [facility]po at [place]. GC/CT:Negative HSV:denies in self and partner Genetic testing:NIPT- negative AFP- ordered 04/07 Early Glucola: FAS: WNL Placenta:Anterior w/o previa Cord:3VC RUBIA:WNL EFW:297.7g, 97% 50gm OGCT:112 3HR GTT: TDAP:06/30/25 Breast Pump:formula feeding RSV: given 07/17 Antibody screen: CBC:H/H/PLT- 10.2/31.3/177 RPR:negative GBS: 08/11/2025- negative Delivery plan: C/S 09/04 PP BC: BTL( Consent signed 08/03/2022 HPI Current : Current EDU 09/10/25 Gestation 39 Weeks and 1 Days Para 2 Vital Signs Temperature 37.1 C 09/04/25 05:44 Pulse Rate 73 09/04/25 05:44 Respiratory Rate 16 09/04/25 05:44 Blood Pressure 99/71 09/04/25 05:44 O2 Saturation 98 09/04/25 05:44 NST Procedure NST Procedure: NST Procedure Start Date 09/04/25 Start Time 05:35 Stop Time 06:13 Patient States Movement Yes Meds/Allgy Home Medications Ambulatory Orders Medication Instructions Recorded Confirmed acetaminophen 500 mg tablet 500 mg PO Q6H PRN 09/22/24 08/21/25 vits no.126-ferrous fum tab PO 01/26/2508/21 28 mg iron-folic acid 800 mcg tablet (Classic ) cholecalciferol (vitamin D3) 125 125 mcg PO QDAY #360 caps 04/07/25 08/21/25 mcg (5,000 unit) capsule Allergies Allergies Allergy/AdvReac Type Severity Reaction Status Date / Time Bleach (Sodium Hypochlorite) Allergy Severe Anaphylaxis Verified 08/21/25 09:33 lavender (Lavandula Allergy Severe Hives Verified 08/21/25 09:33 angustifolia) nickel Allergy Intermediate Rash Verified 08/21/25 09:33 PFSH Active Problems All Active Problems (Updated 09/04/25 @ 07:17 by Juan Brown MD) Anemia affecting (Acute) Chronic anemia (Acute) Encounter for sterilization (Acute) Maternal care for low transverse scar from previous delivery (Acute) ASCUS with positive high risk HPV (Acute 02/09/25) Supervision of normal (Acute) Anxiety (Acute) Medical History Medical History (Updated 09/04/25 @ 07:17 by Juan Brown MD) Acute pharyngitis Acute cough Vaginal discharge Bacteriuria with pyuria URI (upper respiratory infection) Conjunctivitis 39 weeks gestation of Frequent UTI Surgical History Surgical History (Updated 01/26/25 @ 10:38 by Cathy Sheth RN) History of tonsillectomy and adenoidectomy H/O knee surgery Family History Family History (Updated 01/26/25 @ 10:40 by Cathy Sheth RN) Maternal grandmother Lung cancer Mother Asthma Meniere disease Brother Asthma Son Asthma Social History Social History (Updated 06/26/25 @ 09:10 by Bryant Grant) Smoking Status: Former smoker If you are a former smoker, when did you quit? (Date/Year): 2015 Number of Years Smoked: 4 Do you dip or chew tobacco?: No Do you vape?: No Do you feel safe in your home environment?: Yes History of physical, verbal, emotional, or financial abuse?: No ETOH Use: None Frequency: Occasional Substance Use: denies use Are you sexually active?: Yes Review of Systems Status of ROS: 10 or more systems reviewed and unremarkable except as noted in history and below Physical Abdominal Exam Vital Signs: Temp Pulse Resp BP Pulse Ox 37.1 C 73 16 99/71 98 09/04/25 05:44 09/04/25 05:44 09/04/25 05:44 09/04/25 05:44 09/04/25 05:44 Other Notes Labor Progress Note/Additional Text: General: Alert, oriented, no acute distress Head: Normal cephalic atraumatic Eyes: PERRLA, extraocular motions intact. Respiratory: Normal rate of respiration. No accessory muscle use, normal respiratory effort. Abdomen: Gravid, nontender, nondistended Extremities: Normal range of motion Neuro: Oriented x3. Normal movements Skin: Small red spots, approximately 5 mm several along her rib line bilaterally. No raised lesions. Psych: Appropriate mood and affect. Normal judgment and insight FHT: 120 BPM baseline, moderate variability, accelerations present, no decelerations. Reactive NST [place]: 4 to 10 minutes Plan for Labor Plan For Labor I expect patient to be DC'd or transferred within 96 hours.: Yes Conclusion/Plan Problem List (1) Maternal care for low transverse scar from previous delivery: Plan: section was recommended. Risks, benefits and alternatives were discussed including but not limited to infection, bleeding that may require blood products or hysterectomy for life saving measures, injury to surrounding organs including but not limited to bowel, bladder, ureters, tubes and ovaries and/or the baby. Should injury occur it could require longer/additional surgery to repair. The patient stated understanding and desired to proceed. All questions were answered posed by patient. Discussed risk of villegas from cautery with body piercings but she is unable to remove them. Will limit cautery as able. She desires a tubal ligation. We discussed the risks, alternatives, benefits to this. We discussed long-acting control such as IUDs and implants. We had discussion about partner vasectomy and the pros and cons to this including a smaller surgery, and easier recovery. We discussed the general risk of surgery including infection, bleeding, damage to other organs, needing a larger incision. Specific to tubal ligation, we discussed the risk of regret, and discussed that regret is greater in those under 30, without children, and not in stable relationships. Patient says she is confident in her decision to not have any more children. We also discussed the risk of failure, and that less than 1/100 tubal ligation fail, but if it did, she would be at increased risk of ectopic . Patient desires to proceed with bilateral tubal ligation. Second IV started for anemia and multiple sections. 2 g cefazolin for surgical prophylaxis. (2) Encounter for sterilization: Plan: As above (3) Chronic anemia: Plan: As above (4) Anemia affecting : Plan: As above Qualifiers: Trimester: third trimester Qualified Code(s): O99.013 - Anemia complicating , third trimester Lab Results 09/04/25 06:10
[2025-09-04] MEDS: ACETAMINOPHEN 500 MG TABLET PO ONE (07:16)
[2025-09-04] MEDS: CITRIC ACID/SODIUM CITRATE 15 ML UDC PO ONE (07:25)
--- NOTE | 2025-09-04 07:30 | ANESTHESIA PROCEDURE NOTE ---
Pre-Anesthesia VS, & Labs Diagnosis Surgical Diagnosis:: Previous C section, Desires sterilization Procedure Procedure: Repeat C section, bilateral salpingectomy Vitals Vital Signs: Temp Pulse Resp BP Pulse Ox 37.1 C 73 16 99/71 98 09/04/25 05:44 09/04/25 05:44 09/04/25 05:44 09/04/25 05:44 09/04/25 05:44 NPO NPO: >8 hours Is Patient ?: Yes Lab Results Current Lab Results: Laboratory Tests 09/04/25 06:10: WBC 9.6, RBC 3.39 L, Hgb 9.3 L, Hct 29.6 L, MCV 87.3, MCH 27.4, MCHC 31.4 L, RDW 13.7, Plt Count 161, MPV 9.9, Neut # (Auto) 6.2, Lymph # (Auto) 2.6, Gilliam # (Auto) 0.6, Eos # (Auto) 0.1, Baso # (Auto) 0.0, Absolute Nucleated RBC 0.00, Nucleated RBC % 0.0, Blood Type O POSITIVE, Antibody Screen NEGATIVE Lab results reviewed: Yes 09/04/25 06:10 Meds/Allgy Home Medications Ambulatory Orders Medication Instructions Recorded Confirmed acetaminophen 500 mg tablet 500 mg PO Q6H PRN 09/22/24 08/21/25 vits no.126-ferrous fum tab PO 01/26/2508/21 28 mg iron-folic acid 800 mcg tablet (Classic ) cholecalciferol (vitamin D3) 125 125 mcg PO QDAY #360 caps 04/07/25 08/21/25 mcg (5,000 unit) capsule Allergies Allergies Allergy/AdvReac Type Severity Reaction Status Date / Time Bleach (Sodium Hypochlorite) Allergy Severe Anaphylaxis Verified 08/21/25 09:33 lavender (Lavandula Allergy Severe Hives Verified 08/21/25 09:33 angustifolia) nickel Allergy Intermediate Rash Verified 08/21/25 09:33 PFSH Active Problems All Active Problems Anemia affecting (Acute) Chronic anemia (Acute) Encounter for sterilization (Acute) Maternal care for low transverse scar from previous delivery (Acute) ASCUS with positive high risk HPV (Acute 02/09/25) Supervision of normal (Acute) Anxiety (Acute) Medical History Medical History Conjunctivitis URI (upper respiratory infection) Bacteriuria with pyuria Vaginal discharge Acute cough Acute pharyngitis 39 weeks gestation of Frequent UTI Surgical History Surgical History History of tonsillectomy and adenoidectomy H/O knee surgery Family History Family History Maternal grandmother Lung cancer Mother Asthma Meniere disease Brother Asthma Son Asthma Social History Social History Smoking Status: Former smoker If you are a former smoker, when did you quit? (Date/Year): 2015 Number of Years Smoked: 4 Do you dip or chew tobacco?: No Do you vape?: No Do you feel safe in your home environment?: Yes History of physical, verbal, emotional, or financial abuse?: No ETOH Use: None Frequency: Occasional Substance Use: denies use Are you sexually active?: Yes Anesthesia Exam (Expanded) Exam General: Alert and Oriented x3 Dental: WNL Mouth Openin Fingerbreadth Neck Mobility: Normal Mallampati classification: I Thyromental Distance: 4-6 cm Respiratory: Lungs clear and Normal breath sounds Cardiovascular: Regular rate Neurological: Normal speech Mental/Cognitive Status: Alert/Oriented X3 and Normal for patient Cognitive Status: Within normal limits Exam Exam Vital Signs: Vital Signs x48h Temp Pulse Resp BP Pulse Ox 09/04/25 05:44 37.1 C 73 16 99/71 98 Constitutional normal general appearance HENMT dentition normal Neck/C-Spine cervical full ROM noted Respiratory breath sounds equal bilaterally Cardiovascular normal heart rate noted Plan Problem List (1) Maternal care for low transverse scar from previous delivery: Plan: section was recommended. Risks, benefits and alternatives were discussed including but not limited to infection, bleeding that may require blood products or hysterectomy for life saving measures, injury to surrounding organs including but not limited to bowel, bladder, ureters, tubes and ovaries and/or the baby. Should injury occur it could require longer/additional surgery to repair. The patient stated understanding and desired to proceed. All questions were answered posed by patient. Discussed risk of villegas from cautery with body piercings but she is unable to remove them. Will limit cautery as able. She desires a tubal ligation. We discussed the risks, alternatives, benefits to this. We discussed long-acting control such as IUDs and implants. We had discussion about partner vasectomy and the pros and cons to this including a smaller surgery, and easier recovery. We discussed the general risk of surgery including infection, bleeding, damage to other organs, needing a larger incision. Specific to tubal ligation, we discussed the risk of regret, and discussed that regret is greater in those under 30, without children, and not in stable relationships. Patient says she is confident in her decision to not have any more children. We also discussed the risk of failure, and that less than 1/100 tubal ligation fail, but if it did, she would be at increased risk of ectopic . Patient desires to proceed with bilateral tubal ligation. Second IV started for anemia and multiple sections. 2 g cefazolin for surgical prophylaxis. (2) Encounter for sterilization: Plan: As above (3) Chronic anemia: Plan: As above (4) Anemia affecting : Plan: As above Qualifiers: Trimester: third trimester Qualified Code(s): O99.013 - Anemia complicating , third trimester Plan Anesthesia Type: Spinal and Transverse Abdominis Plane (TAP) Block Regional Block: Per Surgeon's request for Post Op pain control Consent for Procedure(s) Verified and Reviewed: Yes Code Status: Attempt Resuscitation ASA Classification ASA classification: 2-Mild systemic disease Is this case an emergency?: No
[2025-09-04] MEDS ORDERED: ONDANSETRON 4 MG/2 ML VIAL ONE (07:32)
[2025-09-04] MEDS ORDERED: fentaNYL 100 MCG/2 ML VIAL ONE (07:33)
[2025-09-04] MEDS ORDERED: DEXAMETHASONE 10 MG/ML VIAL ONE (07:33)
[2025-09-04] MEDS ORDERED: fentaNYL 100 MCG/2 ML VIAL IVP PRN (08:01)
[2025-09-04] MEDS ORDERED: HYDROmorphone 0.5 MG/0.5 ML SYRINGE IVP PRN (08:01)
[2025-09-04] MEDS ORDERED: ATROPINE ABBOJECT 1 MG/10 ML SYRINGE IVP PRN (08:01)
[2025-09-04] MEDS ORDERED: MORPHINE 2 MG/ML CARPUJECT IVP PRN (08:01)
[2025-09-04] MEDS ORDERED: NALOXONE 0.4 MG/ML VIAL IVP PRN ×2 (08:01→09:33)
[2025-09-04] MEDS ORDERED: ePHEDrine 50 MG/ML VIAL IVP PRN (08:01)
[2025-09-04] MEDS ORDERED: METOCLOPRAMIDE 10 MG/2 ML VIAL IVP PRN (08:01)
[2025-09-04] MEDS ORDERED: ACETAMINOPHEN 1,000 MG/100 ML 1,000 MG/100 ML BAG IV ONE (08:51)
[2025-09-04] MEDS ORDERED: TRANEXAMIC ACID IN NACL 1,000 MG/100 ML BAG IV ONE (08:51)
[2025-09-04] MEDS ORDERED: LACTATED RINGERS 1,000 ML IV SCH (09:00)
[2025-09-04] MEDS ORDERED: OXYTOCIN 10 UNIT/ML VIAL ONE (09:20)
[2025-09-04] MEDS ORDERED: hydrALAZINE INJ 20 MG/ML VIAL IVP PRN ×2 (09:33)
[2025-09-04] MEDS ORDERED: LABETALOL 20 MG/4 ML SYRINGE IVP PRN ×3 (09:33)
[2025-09-04] MEDS ORDERED: WITCH HAZEL/GLYCERIN 1 PAD TOP PRN (09:33)
[2025-09-04] MEDS ORDERED: HYDROCORTISONE 1% CREAM 28 GM TUBE TOP PRN (09:33)
[2025-09-04] MEDS ORDERED: ONDANSETRON 4 MG/2 ML VIAL IVP PRN (09:33)
--- NOTE | 2025-09-04 09:37 | OPERATIVE REPORT ---
Operative Report General Admit Date: 09/04/25 Procedure Data: Operation Date: 09/04/25 07:30 Proposed Procedures p Section,bilateral salpingectomy(Not Applicable) - Juan Brown MD Actual Procedures p Section with Bilateral Salpingectomy(Not Applicable) - Juan Brown MD Anesthesia Type General Case Staff Anesthesia Provider: Irwin Daniel Assisting Provider: Heavenly Marcial Case Times Procedure Start: 09/04/25 08:14 Time out: 09/04/25 08:13 Pre-Op Diagnosis: Previous section, desires sterility Procedure Note Estimated Blood Loss (ml): 850 Pathology: Bilateral salpingectomy Complications: None Other Other Information/Narrative: section was recommended. Risks, benefits and alternatives were discussed including but not limited to infection, bleeding that may require blood products or hysterectomy for life saving measures, injury to surrounding organs including but not limited to bowel, bladder, ureters, tubes and ovaries and/or the baby. Should injury occur it could require longer/additional surgery to repair. The patient stated understanding and desired to proceed. All questions were answered posed by patient. Prior to being taken to the OR, 2 grams of cefazolin IV was administered. The patient was taken to the operating room where regional anesthesia was found to be adequate. She was then prepared and draped in the usual sterile fashion in the dorsal supine position with a leftward tilt displacing the uterus. Gilliam was draining to gravity. SCDs were on bilateral lower extremities. Time out was taken. A pfannenstiel skin incision was then made with the scalpel and carried through to the underlying layer of fascia. Due to the thickness of the previous scar, the previous scar was removed. The fascia was incised in the midline and the incision extended laterally with the Kinney scissors. The superior aspect of the facial incision was then grasped with the Ricco clamps, elevated and the underlying rectus muscles dissected off sharply. There were moderate amount of adhesions, but getting to the muscular layer was relatively uncomplicated. Attention was then turned to the inferior aspect of this incision which in a similar fashion was grasped, elevated with the Ricco clamps and the rectus muscle dissected off sharply. The rectus muscles were in the midline. The peritoneum identified, and entered blutly. The peritoneal incision was then extended superiorly and inferiorly with good visualization of the bladder. The bladder blade was inserted. The vesicouterine peritoneum was identified, grasped with the pick-ups, and entered sharply with Metzenbaum scissors. There were numerous adhesions to the uterus anterior abdominal wall which had to be carefully dissected to gain access to the uterus. The lower uterine segment was identified and care was taken to avoid prominent vessels. The uterus was then incised in a transverse fashion with the scalpel. The uterine incision was then extended bluntly laterally. Artificial rupture of membranes demonstrated clear fluid. The bladder blade was removed. The fetus was in a cephalic presentation. The infants head delivered atraumatically. The anterior shoulders were delivered followed by the posterior shoulders then the remainder of the body. The infants mouth and nose were bulb suctioned. The umbilical cord was clamped times two and cut. The infant was handed to the pediatric team. The placenta was removed with gentle traction. Oxytocin was added to the IV fluid. Due to multiple serosal bleeds from the adhesions, tranexamic acid was given to the patient. The uterus was exteriorized and cleared of all clots and debris. The uterine incision was inspected and found to be without any extensions and was repaired with 0 Vicryl in a running, locked fashion. Multiple ihrilh-fq-ojyar stitches were required to become hemostatic. We also did several other areas from the adhesions requiring [id number] stitches for hemostasis. Surgicel powder was also employed on a serosal edge that we could not suture. Upon inspection, the repaired hysterotomy was found to be hemostatic. We then confirmed sterilization was still desired and patient agreed. We then grasped the fallopian tube with Yolanda clamps and using closure device, the fimbria were removed and the mesosalpinx was transected following up to the cornea where this was transected and handed off. A similar procedure was performed on the left side. The uterus was firm and returned to the abdomen. The gutters were cleared of all clots and debris. The muscle layer had 1 bleeding vessel which was ligated with a [id number] suture and was thenwas examined and found to be hemostatic. The fascia was reapproximated with 0 Vicryl in a running fashion. The subcutaneous tissue was closed with 2-0 Vicryl. The skin was closed in a subcuticular fashion with 4-0 Monocryl. The patient tolerated the procedure well. Sponge, lap and needle counts were correct times three. The patient was taken to the recovery room in stable condition. I appreciate the assistance of DORCAS Gregorio during this procedure, and the assistance in retraction, visualization, dissection, and overall assistance during the case were instrumental to the patient's wellbeing. APGARs: 8/9
[2025-09-04] MEDS: ONDANSETRON 4 MG/2 ML VIAL IVP PRN (10:14)
[2025-09-04] MEDS: OXYTOCIN/SODIUM CHLORIDE 500 ML IV PRN (10:30)
[2025-09-04] MEDS: oxyCODONE 5 MG TABLET PO PRN (12:27)
[2025-09-04] MEDS: KETOROLAC 30 MG/ML VIAL IVP SCH (12:27)
--- NOTE | 2025-09-04 14:12 | ANESTHESIA POST OP EVALUATION ---
Anesthesia Post Eval Post Anesthesia Eval Vitals: Last Vital Signs Temp 36.4 C L 09/04/25 10:09 Pulse 60 09/04/25 10:50 Resp 18 09/04/25 12:00 BP 91/40 L 09/04/25 12:00 Pulse Ox 100 09/04/25 10:50 O2 Flow Rate 14 09/04/25 10:09 CV Function Including HR & BP: Stable Pain Control: Satisfactory Nausea & Vomiting: Negative Mental Status: Baseline Respiratory Status: Airway Patent Hydration Status: Satisfactory Anesthesia Complications: None
[2025-09-04] MEDS: ceFAZolin (2G) 2 GM in SODIUM CHLORIDE 0.9% MINIBAG 100 ML IV ONE (16:17)
[2025-09-04] MEDS: ACETAMINOPHEN 500 MG TABLET PO SCH (17:29)
[2025-09-04] MEDS: DOCUSATE SODIUM 100 MG CAPSULE PO SCH (20:26)
[2025-09-05 05:13] LABS: HCT - HEMATOCRIT 25.5 % (37.0-47.0); HGB - HEMOGLOBIN 8.2 g/dL (12.0-16.0); MEAN PLATELET VOLUME 9.2 fL (7.9-10.8); PLT - PLATELET COUNT 169.0 10^3/uL (130-450); RED CELL DISTRIBUTION WIDTH 13.4 % (12.0-15.0)
[2025-09-05] MEDS: SIMETHICONE CHEW 80 MG TABLET PO PRN (06:41)
[2025-09-05] MEDS: oxyCODONE 5 MG TABLET PO PRN (06:42)
[2025-09-05] MEDS: IBUPROFEN 600 MG TABLET PO SCH (06:44)
--- NOTE | 2025-09-05 08:02 | PROVIDER PROGRESS NOTE ---
Subjective Subjective Subjective: Subjective Patient reports she is doing well. Lochia appropriate. Denies heavy bleeding. Ambulating. Pelvic and abdominal pain well-controlled. Tolerating oral intake. Diet: Regular. Voiding without difficulty. Passing flatus. Denies BM. Patient is bonding with baby in room Breast feeding going well. Denies feeling lightheaded, dizzy or excessively fatigued. Control: Status post bilateral tubal ligation Objective General: Alert, oriented, no apparent distress. Cardiovascular: Regular rate. Regular rhythm. Lungs: No increased work of breathing. Abdomen: Uterus firm. Below umbilicus. No guarding or rebound. Extremities: No pain on palpation. No cords palpated. Distal pulses intact. Incision: Clean, dry, and intact. Bandages removed today Current Medications Current Medications Current Medications: Current Medications Generic Name Dose Route Start Last Admin Trade Name Freq PRN Reason Stop Dose Admin Acetaminophen 1,000 mg 09/04/25 10:00 09/05/25 00:51 Acetaminophen 500 Mg Tablet PO 1,000 mg Q8H MACIE Administration Diphenhydramine HCl 25 mg 09/04/25 09:33 Diphenhydramine 25 Mg Capsule PO Q6HR PRN Allergy Symptoms Diphenhydramine HCl 25 mg 09/04/25 09:33 Diphenhydramine Inj 50 Mg/Ml Vial IVP Q6H PRN Allergy Symptoms Diphenhydramine HCl 25 mg 09/04/25 09:33 Diphenhydramine 25 Mg Capsule PO QPM PRN Insomnia Docusate Sodium 100 mg 09/05/25 14:00 Docusate Sodium 100 Mg Capsule PO TID MACIE Hydralazine HCl 10 mg 09/04/25 09:33 Hydralazine Inj 20 Mg/Ml Vial IVP .ONCE PRN SBP> or= 160 OR DBP> or= 110 Protocol Hydralazine HCl 5 - 20 mg 09/04/25 09:33 Hydralazine Inj 20 Mg/Ml Vial IVP Q20M PRN SBP> or= 160 OR DBP> or= 110 Protocol Hydrocortisone 1 applic 09/04/25 09:33 Hydrocortisone 1% Cream 28 Gm Tube TOP QID PRN Hemorrhoids Lactated Ringer's 1,000 mls @ 125 mls/hr 09/04/25 06:00 09/04/25 16:19 Lr IV Infused .Q8H MACIE Infusion Ibuprofen 600 mg 09/05/25 07:00 09/05/25 06:44 Ibuprofen 600 Mg Tablet PO 600 mg Q6H MACIE Administration Labetalol HCl 20 mg 09/04/25 09:33 Labetalol 20 Mg/4 Ml Syringe IVP .ONCE PRN SBP> or= 160 OR DBP> or= 110 Protocol Labetalol HCl 20 - 80 mg 09/04/25 09:33 Labetalol 20 Mg/4 Ml Syringe IVP Q10M PRN SBP> or= 160 OR DBP> or= 110 Protocol Labetalol HCl 20 - 40 mg 09/04/25 09:33 Labetalol 20 Mg/4 Ml Syringe IVP Q10M PRN SBP> or= 160 OR DBP> or= 110 Protocol Naloxone HCl 0.4 mg 09/04/25 09:33 Naloxone 0.4 Mg/Ml Vial IVP .ONCE PRN Opioid overdose Nifedipine 10 - 20 mg 09/04/25 09:33 Nifedipine 10 Mg Capsule PO Q20M PRN SBP> or= 160 OR DBP> or= 110 Protocol Ondansetron HCl 4 mg 09/04/25 09:33 Ondansetron 4 Mg/2 Ml Vial IVP Q4HR PRN Nausea / Vomiting Oxycodone HCl 10 mg 09/05/25 06:16 09/05/25 06:42 Oxycodone 5 Mg Tablet PO 10 mg Q4HR PRN Administration Severe Pain 6 -10 Simethicone 80 mg 09/04/25 09:33 09/05/25 06:41 Simethicone Chew 80 Mg Tablet PO 80 mg TID PRN Administration Gas Witch Halima/Glycerin 1 pad 09/04/25 09:33 Witch Halima/Glycerin 1 Pad TOP PRN PRN Itching Objective Vital Signs/Intake & Output Vital Signs: Vital Signs x48h Temp Pulse Resp BP Pulse Ox 09/05/25 06:00 37.0 C 64 18 97/61 99 09/05/25 01:00 37.1 C 67 18 96/55 L 97 09/05/25 00:57 37.1 C 56 L 18 96/55 L 96 Intake & Output: Intake & Output 09/02/25 09/03/25 09/04/25 09/05/25 23:59 23:59 23:59 23:59 Intake Total 4300 / 4300 Output Total 1400 / 1400 Balance 2900 / 2900 Lab Results 09/05/25 05:07 Other Labs: Lab Results x24hrs 09/05/25 Range/Units 05:07 WBC 18.7 H (4.8-10.8) x10^3/uL RBC 2.89 L (4.20-5.40) 10^6/uL Hgb 8.2 L (12.0-16.0) g/dL Hct 25.5 L (37.0-47.0) % MCV 88.2 (81.0-99.0) fL MCH 28.4 (27.0-31.0) pg MCHC 32.2 (32.0-36.0) g/dL RDW 13.4 (12.0-15.0) % Plt Count 169 (130-450) 10^3/uL MPV 9.2 (7.9-10.8) fL Assessment/Plan Problem List (1) care and examination of lactating mother: Impression: Routine care. Had a peak of increasing pain, but now well- controlled. Anticipate discharge tomorrow. (2) Delivery by section: Impression: Routing postop care (3) Delivery outcome of price : Impression: Routine care Qualifiers: outcome: live Qualified Code(s): Z37.0 - Single live (4) Chronic anemia: Impression: Appropriate drop in H/H. No symptoms of hypovolemia.
[2025-09-05] MEDS ORDERED: IBUPROFEN 600 MG TABLET PO SCH (10:00)
[2025-09-05] MEDS: DOCUSATE SODIUM 100 MG CAPSULE PO SCH (22:42)
[2025-09-06] MEDS: oxyCODONE 5 MG TABLET PO PRN (04:14)
[2025-09-06 06:54] VITALS: O2SAT 97
[2025-09-06 08:27] VITALS: BP 103/52; TEMP 98.6
--- NOTE | 2025-09-06 21:51 | Discharge Summary ---
"Discharge Summary Admit Date: 09/04/25 Discharge Date: 09/06/25 Discharging Provider: Brittni Olvera MD Code Status: Attempt Resuscitation DIAGNOSES Admission Diagnoses: at 39 weeks. 2 prior c sections. desires sterilization. Discharge Diagnoses with Status of Each Condition: repeat c section and sterilization done, no complications. HPI History of Present Illness: with 3rd child, new partner. 2 prior c sections. here for repeat with sterilization. Anemia. CONSULTS | PROCEDURES Procedures: repeat low transverse c section and bilateral salpingectomies. HOSPITAL COURSE Hospital Course: Admitted for above procedure. performed without complications although did take extra time as there was a lot of scar tissue. Baby girl 9 pound 4 oz. post course unremarkable and discharged on PPD #2. ALLERGIES Allergies Allergy/AdvReac Type Severity Reaction Status Date / Time Bleach (Sodium Hypochlorite) Allergy Severe Anaphylaxis Verified 08/21/25 09:33 lavender (Lavandula Allergy Severe Hives Verified 08/21/25 09:33 angustifolia) nickel Allergy Intermediate Rash Verified 08/21/25 09:33 MEDICATIONS Ambulatory Orders Medication Instructions Recorded Confirmed acetaminophen 500 mg tablet 500 mg PO Q6H PRN fever or pain 09/22/24 09/04/25 vits no.126-ferrous fum 1 tab PO DAILY 09/04/25 28 mg iron-folic acid 800 mcg tablet (Classic ) cholecalciferol (vitamin D3) 125 125 mcg PO DAILY 08/1509/04/25 mcg (5,000 unit) capsule ibuprofen 600 mg tablet 600 mg PO Q6H PRN Pain #30 t abs 09/05/25 oxycodone 5 mg tablet 5 mg PO Q4H PRN Severe Pain #30 09/05/25 tabs PHYSICAL EXAM AT DISCHARGE General Appearance: positive No acute distress Cardiovascular: positive Regular rate & rhythm Abdomen: positive Other (mildly tender. wound healing well. no erythema. ) Extremities: positive Non-tender and No pedal edema Neurologic/Psychiatric: positive Oriented x3 LABS 09/05/25 05:07 FOLLOW UP Follow Up: in clinic in 1-2 weeks. TIME SPENT Time Spent in Discharge (Minutes): 20 Discharge Plan Discharge Patient Disposition: Home, Self Care Prescriptions: New ibuprofen 600 mg tablet 600 mg PO Q6H PRN (Reason: Pain) Qty: 30 0RF oxycodone 5 mg tablet 5 mg PO Q4H PRN (Reason: Severe Pain) Qty: 30 0RF Continued cholecalciferol (vitamin D3) 125 mcg (5,000 unit) capsule 125 mcg PO DAILY Classic 28 mg iron- 800 mcg tablet 1 tab PO DAILY acetaminophen 500 mg tablet 500 mg PO Q6H PRN (Reason: fever or pain) Activity Restrictions/Additional Instructions: pelvic rest and no lifting more than 10 pounds for 6 weeks. Diet: Regular Print Language: Romansh Patient Instructions: Section () Follow-up Care: SHANELLE ALMEIDA MD [Primary Care Provider, Family Practice] Vitals documented within 30 minutes of discharge?: Yes"
== END 2025-09-06 09:26 | disposition home or self-care (01) | DRG 785 ==
LOC: FBP 05:16
PROVIDERS: ADMIT Obstetrics & Gynecology; ATTEND Obstetrics & Gynecology